=== PATIENT | male | born 1965 | race Caucasian/White ===

== ENCOUNTER → 2024-10-24 | Outpatient (CLI) | payer OTHER, SELFPAY ==
--- NOTE | 2024-10-24 12:20 | RAD_ITS ---
PROCEDURE: ORBITS FOR FOREIGN BODY 10/24/2024 REASON FOR EXAM: HISTORY OF METAL TO EYES TECHNIQUE: Procedure Code: [id number]. Modality: DX Procedure: ORBITS FOR FOREIGN BODY COMPARISON: None. FINDINGS: BONES: No acute osseous abnormality. SINUSES: No air-fluid level. SOFT TISSUES: No radiodense foreign bodies in the region of the orbits. No orbital emphysema. RAD/Orbits for Foreign Body IMPRESSION: No contraindication to MRI based on imaging related to this orbital exam. Reading Location: [id number]
--- OUTSIDE RECORDS SUMMARY | 2024-10-24 12:30 | XMS RPT_ITS | CCD ---
Author Organization [facility] ion [facility] Care Team Providers Care [place] Assembler Supervisor Name Role Phone JEMAL MULTANI Attending Unavailable [facility] Referring Unavailable SUHAIL NIX Primary Care Unavailable JEMAL MULTANI Attending Unavailable [facility] Referring Unavailable SUHAIL NIX Primary Care Unavailable Sanjiv SALAD COUNTER ATTENDANT-Devorah DENIS Unavailable [phone] Boyd SALAD COUNTER ATTENDANT.Suhail DENIS Primary Care Provider Suhail Nix Unavailable Jovan Jacobson Unavailable Unavailable Anabella Diop Unavailable Boyd, Ms. Coradoe Renita Primary Care Tod Diop, Ms. Anabella Mederos Attending Niruva marcos Nix, Ms. Suhailflakito Maravilla Primary Care Tod Jacobson, Ms. Jovan Hoffmann Attending Tod Nix SALAD COUNTER ATTENDANT-Suhail DENIS Primary Care Prov ider SUHAIL NIX Primary Care UnavailJOVAN Berry Attending Unavailable SUHAIL NIX Primary Care UnavailJOVAN Berry Attending Unavailable SUHAIL NIX Primary Care Unavailabl rosmery Nix SALAD COUNTER ATTENDANT.Suhail DENIS Primary Care Provider SUHAIL NIX Primary Care Unavailable LATRELL SMILEY Attending Unava ilJEWELL Mcgregor Attending Unavailable SUHAIL NIX Primary Care Unavailable SUHAIL NIX Primary Care Unavailable MANDY YEBOAH Attending Unavaila ble SUHAIL NIX Primary Care Unavailable BHUPINDER CAVANAUGH Attending Unavailable SUHAIL NIX Primary Care Unavailable KIMBERLY PADILLA Attending Unavailable Suhail Nix NP Primary Care Unavailable Latrell Hahn Referring UnavailLatrell Alcocer Attending Unavailcharlene botello Medications Current Medications Medication Drug Class(es) Dates Sig (Normalized) Sig (Original) [id number] 200 actuat albuterol 0.09 mg/actuat metered dose inhaler (4 sources) beta2-Adrenergic Agonist Start: 05-21-2023 End: 05-20-2024 take 2 puff(s) by inhalation every six hours for wheezing albuterol 90 mcg/actuation inhaler Indications: Acute bronchitis, unspecified organism Inhale 2 puffs every 6 hours if needed for wheezing. 18 g 05/21/2023 05/20/2024 Active Start: 05-09-2022 take 2 puff(s) by in halation twice daily as needed for cough albuterol 90 mcg/inh inhalation aerosol ; 2 puff(s) inhaled 2 times a day as needed for cough Quantity: 8.5 Refills: 0 Ordered: 09-May-2022 Jovan Jacobson Start: 09-May-2022 Generic Substitution Allowed Comments: For inhalation only.It is very important that you take or use this exactly as directed. Do not skip doses or discontinue unless directed by your doctor.Obtain medical advice before taking any non-prescription drugs as some may affect the action of this medication.Shake well before use. Comment on above: For inhalation only. It is very important that you take or use this exactly as directed. Do not skip doses or discontinue unless directed by your doctor.Obtain medical advice before taking any non-prescription drugs as some may affect the action of this medication.Shake well before use. amoxicillin 875 mg / clavulanate 125 mg oral tablet (2 sources) Penicillin-class Antibacterial Start: 05-21-19 End: 05-28-19 take 1 tablet by mouth twice daily amoxicillin-pot clavulanate (Augmentin) 875-125 mg tablet Indications: Acute bronchitis, unspecified organism Take 1 tablet by mouth 2 times a day for 7 days. 14 tablet 05/21/2023 05/28/2023 Active Start: 03-27-2023 End: 04-03-2023 take 1 tablet by mouth twice daily amoxicillin-pot clavulanate (Augmentin) 875-125 mg tablet Indications: Acute non-recurrent maxillary sinusitis Take 1 tablet by mouth 2 times a day for 7 days. 14 tablet 0 03/27/2023 04/03/2023 Active azithromycin 250 mg oral tablet (1 source) Macrolide Antimicrobial Start: 05-09-2022 take 2 tablets by mouth once, then take 1 tablet by mouth once daily azithromycin 250 mg oral tablet ; Take 2 tabs (500mg) x 1 days, then 1 tab (250mg) once daily x 4 days Quantity: 6 Refills: 0 Ordered: 09-May-2022 Jovan Jacobson Start: 09-May-2022 Generic Substitution Allowed Comments: Do not take dairy products, antacids, or iron preparations within one hour of this medication.Finish all this medication unless otherwise directed by prescriber. Comment on above: Do not take dairy pr oducts, antacids, or iron preparations within one hour of this medication.Finish all this medication unless otherwise directed by prescriber. benzonatate 200 mg oral capsule (1 source) Non-narcotic Antitussive Start: 05-18-2022 End: 05-22-2022 take 1 capsule by mouth three times daily for cough benzonatate 200 mg oral capsule ; 1 cap(s) orally 3 times a day x 5 days, As Needed cough Quantity: 15 Refills: 0 Ordered: 18-May-2022 Anabella Diop Start: 18-May-2022 End: 22-May-2022 Generic Substitution Allowed Comments: May cause drowsiness. Alcohol may intensify this effect. Use care when operating dangerous machinery.Swallow whole. Do not crush. Comment on above: May cause drowsiness . Alcohol may intensify this effect. Use care when operating dangerous machinery.Swallow whole. Do not crush. brompheniramine maleate 0.4 mg/ml / dextromethorphan hydrobromide 2 mg/ml / pseudoephedrine hydrochloride 6 mg/ml oral solution (1 source) alpha-Adrenergic Agonist, Uncompetitive G-qzazcz-U-asparta te Receptor Antagonist, Sigma-1 Agonist Start: 01-24-2024 End: 02-03-2024 take 5 mL by mouth four times daily as needed for cough brompheniramine-pseud oeph-DM 2-30-10 mg/5 mL syrup Indications: Viral URI with cough Take 5 mL by mouth 4 times a day as needed for congestion or cough for up to 10 days. 120 mL 01/24/2024 02/03/2024 Active cetirizine hydrochloride 10 mg oral tablet (3 sources) Histamine-1 Receptor Antagonist Start: 11-20-2022 End: 11-20-2023 take 1 tablet by mouth once daily cetirizine (ZyrTEC) 10 mg tablet Indications: Ear pressure, right Take 1 tablet (10 mg) by mouth once daily. 30 tablet 11/20/2022 Active dextromethorphan hydrobromide 15 mg / guaiFENesin 400 mg / pseudoephedrine hydrochloride 60 mg oral tablet (1 source) alpha-Adrenergic Agonist, Uncompetitive R-gzvwgq-V-asparta te Receptor Antagonist, Sigma-1 Agonist Start: 01-24-2024 End: 02-07-2024 take 1 tablet by mouth every six hours ghykllkrevpqvnz-EQ-op aifenesin (Capmist DM) 60-15-400 mg tablet Indications: Viral URI with cough Take 1 tablet by mouth every 6 hours if needed (sinus congestion) for up to 14 days. 84 tablet 01/24/2024 02/07/2024 Active doxycycline hyclate 100 mg oral capsule (1 source) Tetracycline-class Drug Start: 05-18-2022 End: 05-24-2022 take 1 capsule by mouth twice daily doxycycline hyclate 100 mg oral capsule ; 1 cap(s) orally 2 times a day x 7 days Quantity: 14 Refills: 0 Ordered: 18-May-2022 Anabella Diop Start: 18-May-2022 End: 24-May-2022 Generic Substitution Allowed Comments: Avoid prolonged or excessive exposure to direct and/or artificial sunlight while taking this medication.Do not take this drug if you are .Finish all this medication unless otherwise directed by prescriber.Medication should be taken with plenty of water. Comment on above: Avoid prolonged or e xcessive exposure to direct and/or artificial sunlight while taking this medication.Do not take this drug if you are .Finish all this medication unless otherwise directed by prescriber.Medication should be taken with plenty of water. fluticasone propionate 0.05 mg/actuat metered dose nasal spray (3 sources) Corticosteroid Start: 11-20-2022 End: 11-20-2023 take 1 spray(s) nasal route once daily fluticasone (Flonase) 50 mcg/actuation nasal spray Indications: Ear pressure, right Administer 1 spray into each nostril once daily. Shake gently. Before first use, prime pump. After use, clean tip and replace cap. 16 g 11/20/2022 Active omeprazole 20 mg delayed release oral capsule (3 sources) Proton Pump Inhibitor Start: 09-11-2022 take 1 capsule by mouth once daily omeprazole (PRILOSEC) 20 mg capsule Take 1 capsule by mouth once daily. 90 capsule 1 09/11/2022 Active Comment on above: Take 1 capsule by [facility] once daily. predniSONE 10 mg oral tablet (2 sources) Start: 03-27-2023 End: 04-01-2023 take 6 tablets by mouth once daily, then take 5 tablets by mouth once daily, then take 4 tablets by mouth once daily, then take 3 tablets by mouth once daily, then take 2 tablets by mouth once daily, then take 1 tablet by mouth once daily predniSONE (Deltasone) 10 mg tablet Indications: Acute bronchitis, unspecified organism Take 6 tablets (60 mg) by mouth once daily for 1 day, THEN 5 tablets (50 mg) once daily for 1 day, THEN 4 tablets (40 mg) once daily for 1 day, THEN 3 tablets (30 mg) once daily for 1 day, THEN 2 tablets (20 mg) once daily for 1 day, THEN 1 tablet (10 mg) once daily for 1 day. 21 tablet 0 03/27/2023 04/01/2023 Active Start: 05-09-2022 End: 05-13-2022 take 1 tablet by mouth once daily at mealtime predniSONE 20 mg oral tablet ; 1 tab(s) orally once a day Quantity: 5 Refills: 0 Ordered: 09-May-2022 Jovan Jacobson Start: 09-May-2022 End: 13-May-2022 Generic Substitution Allowed Comments: It is very important that you take or use this exactly as directed. Do not skip doses or discontinue unless directed by your doctor.Obtain medical advice before taking any non-prescription drugs as some may affect the action of this medication.Take with food or milk. Comment on above: It is very important that you take or use this exactly as directed. Do not skip doses or discontinue unless directed by your doctor.Obtain medical advice before taking any non-prescription drugs as some may affect the action of this medication.Take with food or milk. Completed/Discontinued Medications Medication Drug Class(es) Dates Sig (Normalized) Sig (Original) cyclobenzaprine hydrochloride 5 mg oral tablet (2 sources) Muscle Relaxant Start: 09-30-2018 End: 03-01-2022 take 1 tablet by mouth three times daily as needed cyclobenzaprine (FLEXERIL) 5 mg tablet Indications: Acute right-sided low back pain without sciatica Take 1 tablet by mouth three times daily as needed. 15 tablet 0 09/30/2018 03/01/2022 Discontinued Start: 12-13-2016 CYCLOBENZAPRIN E HCL 10 MG TABS takes 1 tablet daily as needed CYCLOBENZAPRINE HCL [id number] Mariela Pickering LPN Comment on above: Take 1 tablet by dajuan th three times daily as needed. meclizine hydrochloride 12.5 mg oral tablet (2 sources) Antiemetic Start: 09-13-19 End: 10-04-19 take 1 tablet by mouth every six hours as needed for dizziness meclizine (ANTIVERT) 12.5 mg tab Indications: Vertigo Take 1 tablet by mouth every 6 hours as needed (for dizziness). 30 tablet 09/12/2024 10/03/2024 Discontinued (Side Effects) naproxen 500 mg oral tablet (2 sources) Nonsteroidal Anti-inflammatory Drug Start: 02-06-19 End: 03-01-19 23 take 1 tablet by mouth twice daily at mealtime naproxen (NAPROSYN) 500 mg tablet Indications: Pain in right elbow Take 1 tablet by mouth twice daily with meals. 60 tablet 1 02/06/2018 03/01/2022 Discontinued Start: 12-13-2016 NAPROXEN 500 M G TABS takes 1 tablet daily as needed NAPROXEN [id number] Mariela Pickering LPN Comment on above: Take 1 tablet by dajuan th twice daily with meals. sildenafil 100 mg oral tablet (5 sources) Phosphodiesterase 5 Inhibitor Start: 10-24-2016 End: 10-03-2024 sildenafil (VIAGRA) 100 mg tablet Indications: Erectile dysfunction, unspecified erectile dysfunction type Take 1 tablet by mouth as needed. 8 tablet 2 10/24/2016 10/03/2024 Discontinued (Other) Comment on above: Take 1 tablet by dajuan th as needed. Problems Active Problems Problem Classification Problem Date Documented Da te Episodic/Chronic Abdominal pain (2 sources) Unspecified abdominal pain; Translations: [Flank pain] Onset: 5 Episodic Acute bronchitis (1 source) Acute bronchitis 05-18-2022 Administrative/social admission (1 source) Occupational exposure to noise; Translations: [Other effects of external causes] 09-14-2024 Episodic Calculus of urinary tract (3 sources) Kidney stone; Translations: [Calculus of kidney] Onset: 5 10-03-2024 Episodic Conditions associated with dizziness or vertigo (5 sources) Vertigo; Translations: [Dizziness and giddiness] Onset: 5 09-14-2024 Episodic Esophageal disorders (2 sources) Gastroesophageal reflux disease without esophagitis; Translations: [Gastro-esophageal reflux disease without esophagitis] Onset: 5 09-11-2022 Chronic Headache; including migraine (1 source) Headache; including migraine; Translations: [Headache, unspecified] Onset: 3 Immunizations and screening for infectious disease (8 sources) Patient encounter status; Translations: [Encounter for screening for human immunodeficiency virus [HIV]] 09-11-2022 Episodic Malaise and fatigue (1 source) Other malaise; Translations: [Other malaise] Onset: 3 Episodic Other disorders of stomach and duodenum (1 source) Indigestion; Translations: [Functional dyspepsia] Episodic Other ear and sense organ disorders (2 sources) Tinnitus of right ear; Translations: [Tinnitus, right ear] 09-14-2024 Episodic Other ear and sense organ disorders (1 source) Tinnitus, right ear; Translations: [Tinnitus of right ear] Onset: 5 Episodic Other gastrointestinal disorders (1 source) Heartburn; Translations: [Heartburn] Episodic Other gastrointestinal disorders (1 source) Loose stool; Translations: [Other fecal abnormalities] Episodic Other lower respiratory disease (2 sources) Pleurodynia Onset: 9 Episodic Other lower respiratory disease (4 sources) Cough 05-09-2022 Episodic Comment on above: COUGH Other upper respiratory disease (1 source) Other specified disorders of nose and nasal sinuses; Translations: [Other specified disorders of nose and nasal sinuses] Onset: 3 Episodic Other upper respiratory infections (6 sources) Acute maxillary sinusitis; Translations: [Acute maxillary sinusitis, unspecified] Onset: 4 03-27-2023 Episodic Residual codes; unclassified (1 source) Tobacco user; Translations: [Tobacco use] Episodic Substance-related disorders (1 source) Nicotine dependence, unspecified, uncomplicated; Translations: [Nicotine dependence, unspecified, uncomplicated] Onset: 3 Chronic Unclassified (1 source) Cough, unspecified; Translations: [Cough, unspecified] Onset: 3 Unclassified (1 source) Acute right-sided low back pain without sciatica; Translations: [Acute right-sided low back pain without sciatica] Onset: 5 Past or Other Problems Problem Classification Problem Date Documented Date Episodic/Chronic Acute bronchitis (8 sources) Acute bronchitis; Translations: [Acute bronchitis] Onset: 05-18-2022 05-09-2022 Episodic Blindness and vision defects (5 sources) Hypermetropia; Translations: [Hypermetropia, unspecified eye] Onset: 07-18-2016 07-18-2016 Episodic Other connective tissue disease (6 sources) Lateral epicondylitis; Translations: [Lateral epicondylitis, unspecified elbow] Onset: 02-17-2016 02-17-2016 Episodic Other connective tissue disease (5 sources) Medial epicondylitis; Translations: [Medial epicondylitis, unspecified elbow] Onset: 08-19-2012 08-19-2012 Episodic Other connective tissue disease (5 sources) Other symptoms and signs involving the musculoskeletal system; Translations: [Other musculoskeletal symptoms referable to limbs] Onset: 01-19-2017 01-19-2017 Episodic Other non-traumatic joint disorders (5 sources) Pain in elbow; Translations: [Pain in right elbow] Onset: 01-19-2017 01-19-2017 Episodic Unclassified (1 source) Problem Results Test Name Value Interpretation Reference Range Facility B. burgdorferi IgG and IgM p igor (S)on 10-14-2024 B. burgdorferi IgG+IgM Qn (S) Negative Normal Negative [facility] Comment on above: Order Comment: Leonor delgado Type: BLOOD SPECIMENOrdering Facility: [facility] Address: [address] [place] [address] Result Comment: Rece nt infection with B. burgdorferi sensu lato cannot be excluded if the specimen collected within four weeks after the onset of signs and symptoms or within six weeks after a known tick exposure. Clinical and epidemiological correlation is required. Performed By: #### 3 4942-3 ####[facility] LABCLIA [id number] [address] [place] CBC panel Auto (Bld)on 10-14 Erythrocyte distribution width (RBC) [Ratio] 13.0 % Normal 11.5-15.0 [facility] Comment on above: Order Comment: Leonor delgado Type: BLOOD SPECIMENOrdering Facility: [facility] Address: [address] [place] [address] Performed By: #### 5 8410-2 ####[facility] LABCLIA [id number] [place] [address] [place] Hematocrit (Bld) [Volume fraction] 48.9 % Normal 39.0-51.0 [facility] Comment on above: Order Comment: Leonor delgado Type: BLOOD SPECIMENOrdering Facility: [facility] Address: [address] [place] [address] Performed By: #### 5 8410-2 ####[facility] LABCLIA [id number] [place] [address] [place] Hemoglobin (Bld) [Mass/Vol] 15.9 g/dL Normal 13.0-17.0 [facility] Comment on above: Order Comment: Leonor delgado Type: BLOOD SPECIMENOrdering Facility: [facility] Address: [address] [place] [address] Performed By: #### 5 8410-2 ####[facility] LABCLIA [id number] [place] [address] [place] MCH (RBC) [Entitic mass] 31.6 pg Normal 26.0-34.0 [facility] Comment on above: Order Comment: Speci men Type: BLOOD SPECIMENOrdering Facility: [facility] Address: [address] [place] [address] Performed By: #### 5 8410-2 ####[facility] [place] LABCLIA [id number] [place] [address] [place] MCHC (RBC) [Mass/Vol] 32.5 g/dL Normal 30.5-36.0 [facility] Comment on above: Order Comment: Speci men Type: BLOOD SPECIMENOrdering Facility: [facility] Address: [address] [place] [address] Performed By: #### 5 8410-2 ####[facility] LABCLIA [id number] [facility] [place] [address] [place] MCV (RBC) [Entitic vol] 97.2 fL Normal 80.0-100.0 [facility] Comment on above: Order Comment: Speci men Type: BLOOD SPECIMENOrdering Facility: [facility] Address: [address] [place] [address] Performed By: #### 5 8410-2 ####[facility] [employer] LABCLIA [id number] [place] [address] [place] Platelet mean volume (Bld) [Entitic vol] 9.3 fL Normal 9.0-12.7 [facility] Comment on above: Order Comment: Speci men Type: BLOOD SPECIMENOrdering Facility: [facility] Address: [address] [place] [address] Performed By: #### 5 8410-2 ####[facility] [place] LABCLIA [id number] [facility] [place] [address] [place] Platelets (Bld) [#/Vol] 258 10*3/uL Normal 150-400 [facility] Comment on above: Order Comment: Speci men Type: BLOOD SPECIMENOrdering Facility: [facility] Address: [address] [place] [address] Performed By: #### 5 8410-2 ####[facility] [place] LABCLIA [id number] [place] [address] [facility] RBC (Bld) [#/Vol] 5.03 10*6/uL Normal 4.20-6.00 [facility] Comment on above: Order Comment: Speci men Type: BLOOD SPECIMENOrdering Facility: [facility] Address: [address] [place], [place] [address] Performed By: #### 5 8410-2 ####[facility] [place] LABCLIA [id number] [place] [address] [facility] WBC (Bld) [#/Vol] 6.40 10*3/uL Normal 3.70-11.00 [facility] Comment on above: Order Comment: Speci men Type: BLOOD SPECIMENOrdering Facility: [facility] Address: [address] [place], [place] [address] Performed By: #### 5 8410-2 ####[facility] [place] LABCLIA [id number] [facility] [place] [address] [facility] [place] Comprehensive metabolic 2000 panelon 10-14-2024 Albumin [Mass/Vol] 4.3 g/dL Normal 3.9-4.9 [facility] Comment on above: Order Comment: Speci men Type: BLOOD SPECIMENOrdering Facility: [facility] Address: [address] [place] [address] Performed By: #### 2 4323-8, 3040-3 ####[facility] [place] LABCLIA [id number] [place] [address] [facility] ALP [Catalytic activity/Vol] 91 U/L Normal 38-113 [facility] Comment on above: Order Comment: Speci men Type: BLOOD SPECIMENOrdering Facility: [facility] Address: [address] [place], [place] [address] Performed By: #### 2 4323-8, 3040-3 ####[facility] [place] LABCLIA [id number] [place] [address] [place] ALT With P-5'-P [Catalytic activity/Vol] 54 U/L Normal 10-54 [facility] Comment on above: Order Comment: Speci men Type: BLOOD SPECIMENOrdering Facility: [facility] Address: [address] [place] [address] Performed By: #### 2 4323-8, 3040-3 ####[facility] [place] LABCLIA [id number] [place] [address] [place] Anion gap [Moles/Vol] 13 mmol/L Normal 8-15 [facility] Comment on above: Order Comment: Speci men Type: BLOOD SPECIMENOrdering Facility: [facility] Address: [address] [place] [address] Performed By: #### 2 4323-8, 3040-3 ####[facility] [place] LABCLIA [id number] [place] [address] [place] AST With P-5'-P [Catalytic activity/Vol] 35 U/L Normal 14-40 [facility] Comment on above: Order Comment: Speci men Type: BLOOD SPECIMENOrdering Facility: [facility] Address: [address] [place] [address] Performed By: #### 2 4323-8, 3040-3 ####[facility] [place] LABCLIA [id number] [place] [address] [place] Bilirubin [Mass/Vol] 0.7 mg/dL Normal 0.2-1.3 [facility] Comment on above: Order Comment: Speci men Type: BLOOD SPECIMENOrdering Facility: [facility] Address: [address] [place] [address] Performed By: #### 2 4323-8, 3040-3 ####[facility] [place] LABCLIA [id number] [place] [address] [place] Calcium [Mass/Vol] 9.1 mg/dL Normal 8.5-10.2 [facility] Comment on above: Order Comment: Speci men Type: BLOOD SPECIMENOrdering Facility: [facility] Address: [address] [place] [address] Performed By: #### 2 4323-8, 3040-3 ####[facility] [place] LABCLIA [id number] [place] [address] [place] Chloride [Moles/Vol] 103 mmol/L Normal 98-107 [facility] Comment on above: Order Comment: Speci men Type: BLOOD SPECIMENOrdering Facility: [facility] Address: [address] [place] [address] Performed By: #### 2 4323-8, 3040-3 ####[facility] LABCLIA [id number] [place] [address] [place] CO2 [Moles/Vol] 24 mmol/L Normal 22-30 [facility] Comment on above: Order Comment: Speci men Type: BLOOD SPECIMENOrdering Facility: [facility] Address: [address] [place] [address] Performed By: #### 2 4323-8, 3040-3 ####[facility] LABCLIA [id number] [place] [address] [place] Creatinine [Mass/Vol] 1.01 mg/dL Normal 0.73-1.22 [facility] Comment on above: Order Comment: Speci men Type: BLOOD SPECIMENOrdering Facility: [facility] Address: [address] [place] [address] Performed By: #### 2 4323-8, 3040-3 ####[facility] [place] LABCLIA [id number] [place] [address] [place] eGFRcr SerPlBld CKD-EPI 2020 86 mL/min/1.73m??? Normal >=60 [facility] Comment on above: Order Comment: Speci men Type: BLOOD SPECIMENOrdering Facility: [facility] [facility] Address: [address] [place] [address] Result Comment: Malena mated Glomerular Filtration Rate (eGFR) is calculated using the 2020 CKD-EPI creatinine equation. This equation utilizes serum creatinine, sex, and age as parameters. The creatinine assay has traceable calibration to isotope dilution-mass spectrometry. Refer to KDIGO guidelines for clinical interpretation. In patients with unstable renal function, e.g. those with acute kidney injury, the eGFR may not accurately reflect actual GFR. Performed By: #### 2 4323-8, 0-3 ####[facility] [employer] LABCLIA [id number] [facility] [place] [address] [place] Glucose [Mass/Vol] 104 mg/dL High 74-99 [facility] Comment on above: Order Comment: Leonor delgado Type: BLOOD SPECIMENOrdering Facility: [facility] Address: [address] [place] [address] Result Comment: The [place] Diabetes Association (ADA) provides guidance for cutoff values for fasting glucose and random glucose. The ADA defines fasting as no caloric intake for at least 8 hours. Fasting plasma glucose results between 100 to 125 mg/dL indicate increased risk for diabetes (prediabetes). Fasting plasma glucose results greater than or equal to 126 mg/dL meet the criteria for diagnosis of diabetes. In the absence of unequivocal hyperglycemia, results should be confirmed by repeat testing. In a patient with classic symptoms of hyperglycemia or hyperglycemic crisis, random plasma glucose results greater than or equal to 200 mg/dL meet the criteria for diagnosis of diabetes. Reference: Standards of Medical Care in Diabetes 2016, [place] [employer] Association. Diabetes Care. 2016.39(Suppl 1). Performed By: #### 2 4323-8, 3039-3 ####[facility] [employer] LABCLIA [id number] [facility] [place] [address] [place] Potassium [Moles/Vol] 4.5 mmol/L Normal 3.7-5.1 [facility] Comment on above: Order Comment: Leonor delgado Type: BLOOD SPECIMENOrdering Facility: [facility] Address: [address] [place] [address] Performed By: #### 2 4323-8, 3039-3 ####[facility] [employer] LABCLIA [id number] [facility] [place] [address] [place] Protein [Mass/Vol] 7.0 g/dL Normal 6.3-8.0 [facility] Comment on above: Order Comment: Speci men Type: BLOOD SPECIMENOrdering Facility: [facility] Address: [address] [place] [address] Performed By: #### 2 4323-8, 3040-3 ####[facility] LABCLIA [id number] [facility] [place] [address] [place] [facility] Sodium [Moles/Vol] 140 mmol/L Normal 136-144 [facility] Comment on above: Order Comment: Speci men Type: BLOOD SPECIMENOrdering Facility: [facility] Address: [address] [place], [place] [address] Performed By: #### 2 4323-8, 3040-3 ####[facility] LABCLIA [id number] [facility] [place] [address] [facility] Urea nitrogen [Mass/Vol] 23 mg/dL Normal 9-24 [facility] Comment on above: Order Comment: Speci men Type: BLOOD SPECIMENOrdering Facility: [facility] Address: [address] [place], [place] [address] Performed By: #### 2 4323-8, 3040-3 ####[facility] LABCLIA [id number] [facility] [place] [address] [facility] ED NOTEon 10-14-2024 ED NOTE HNO ID: [id number] Author: CHRISTOPHER SARAH RN Service: Nursing Author Type: Registered Nurse Type: ED Notes Filed: 10/15/2024 18:03 Note Text: Emergency Services: ED Call Back Questionnaire SERVICE DATE: 10/14/2024 Are you feeling better? Yes Any questions about discharge instructions and follow-up care? No Were you able to make a follow up appointment? Will if needed Do you have any further questions? No Is there anything that we could have done differently to improve your ED visit? No SIGNATURE: Christopher Sarah RN PATIENT NAME: Elpidio Cornelius DATE: October 15, 2024 TIME: 6:02 PM Normal [facility] ED NOTE HNO ID: [id number] Author: MAUREEN DRISCOLL RN Service: ? Author Type: Registered Nurse Type: ED Notes Filed: 10/14/2024 13:54 Note Text: Dr Smiley notified that the patient had asked CARROLL Granados about drawing another vial of blood because he had recently found three ticks on his body. Normal [facility] ED NOTE HNO ID: [id number] Author: BHUPINDER ROSALES RN Service: ? Author Type: Registered Nurse Type: ED Notes Filed: 10/14/2024 12:10 Note Text: Ultrasound at bedside for exam Normal [facility] ED NOTE HNO ID: [id number] Author: BHUPINDER ROSALES RN Service: ? Author Type: Registered Nurse Type: ED Notes Filed: 10/14/2024 11:41 Note Text: Dr smiley at bedside for exam Normal [facility] ED NOTE HNO ID: [id number] Author: BHUPINDER ROSALES RN Service: ? Author Type: Registered Nurse Type: ED Notes Filed: 10/14/2024 11:03 Note Text: Pt reports r flank pain and dysuria since this am. Pt does have a known kidney stone. Pt does have nausea but no vomiting and had some diarrhea this am. Normal [facility] ED PROV NOTEon 10-14-2024 ED PROV NOTE HNO ID: [id number] Author: LATRELL SMILEY MD Service: Emergency Medicine Author Type: Physician Type: ED Provider Notes Filed: 10/14/2024 18:46 Note Text: ED Provider Note Patient Name: Elpidio Cornelius : 1965 SERVICE DATE: 10/14/24 History Patient presents with: Flank Pain Dysuria Patient with past history of kidney stones, seen in September for a 3 mm right-sided ureteral stone, presents the emergency room with concerns of the stone is moving. For the past day or so, patient had right flank pain which appears to be worsening and moving. He is also noted some discoloration in his urine. Mild nausea noted without emesis. No fevers, no diarrhea patient took nothing for the pain prior to coming to the ER Abdominal Pain Pain location: R flank Pain quality: pressure and throbbing Pain radiates to: Does not radiate Pain severity: Mild Onset quality: Gradual Timing: Intermittent Chronicity: Recurrent Relieved by: Nothing Worsened by: Nothing Ineffective treatments: None tried Associated symptoms: hematuria and nausea Associated symptoms: no vomiting PAST MEDICAL HISTORY Diagnosis Date GERD (gastroesophageal reflux disease) NEGATIVE MEDICAL HISTORY PAST SURGICAL HISTORY Procedure Laterality Date COLONOSCOPY FLX DX W/COLLJ SPEC WHEN PFRMD 12/24/2018 Colonoscopy ELBOW RIGHT Right has had ozone injections on right elbow 10/22/16 and 10/08/16 TONSILLECTOMY HX FAMILY HISTORY Adopted: Yes Problem Relation Age of Onset No Known Problems Mother No Known Problems Father No Known Problems Sister No Known Problems Brother No Known Problems Maternal Grandmother No Known Problems Maternal Grandfather No Known Problems Paternal Grandmother No Known Problems Paternal Grandfather other (unknown) Other pt adopted other (ms) Daughter 32 Drug abuse Daughter Social History[1] ALLERGIES No Known Allergies Review of Systems Gastrointestinal: Positive for abdominal pain and nausea. Negative for vomiting. Genitourinary: Positive for hematuria. All other systems reviewed and are negative. Physical Exam Vitals [10/14/24 1101] BP Pulse Temp Temp src Resp SpO2 Weight Height 110/77 80 36.1 ?C (96.9 ?F) LT Tympanic 18 97 % 61.7 kg (136 lb) -- Physical Exam Vitals and nursing note reviewed. Constitutional: General: He is not in acute distress. Appearance: Normal appearance. He is not ill-appearing or toxic-appearing. HENT: Head: Normocephalic and atraumatic. Eyes: General: Right eye: No discharge. Left eye: No discharge. Cardiovascular: Rate and Rhythm: Normal rate and regular rhythm. Pulmonary: Effort: No respiratory distress. Abdominal: General: Abdomen is flat. Bowel sounds are normal. Palpations: Abdomen is soft. Tenderness: There is no abdominal tenderness. There is right CVA tenderness. There is no left CVA tenderness or guarding. Skin: General: Skin is warm and dry. Neurological: General: No focal deficit present. Mental Status: He is alert and oriented to person, place, and time. Mental status is at baseline. Psychiatric: Mood and Affect: Mood normal. Behavior: Behavior normal. Diagnostic Testing ED Labs Ordered and Reviewed COMPREHENSIVE METABOLIC PANEL - Abnormal; Notable for the following components: Result Value Ref Range Glucose 104 (*) 74 - 99 mg/dL All other components within normal limits URINALYSIS (WITH MICROSCOPIC) WITH CULTURE IF INDICATED - Abnormal; Notable for the following components: Hemoglobin/Blood,Ur Trace (*) Negative RBC, Urine 3-5 /HPF (*) 0-3 /HPF Bacteria Rare (*) None Seen /HPF All other components within normal limits LIPASE - Normal COMPLETE BLOOD COUNT - Normal LYME AB LATE >30 DAYS SYMPTOMS Procedures ED Course / Clinical Impression Clinical Impressions as of 10/14/24 1842 Flank pain History of kidney stones MDM / Disposition / Plan This is a 59-year-old male patient, past history of kidney stones, seen in our emergency department, middle of September presents emerged from concerns over the same. At that time patient had 3 mm stone, without any complications. At home patient tried nothing for his symptoms and came to the ER for reevaluation. Workup today ultrasound of his kidney demonstrates no hydronephrosis, BUN/creatinine, and urinalysis demonstrate no evidence of urinary tract infection, with normal kidney function. Patient improved with Toradol in the emergency department. Discussed with patient likely his stone is moving, given a prescription of Toradol, Zofran, and Flomax, and follow-up with urology. Patient does not warrant repeat CT imaging as he just had this done last 1 month ago and there is no acute complications related to the above. Increase to increase his fluid intake. Please note this report has been produced using speech recognition software and may contain errors related to that system including error (more content not included)... Normal [facility] Lipase SerPl-cCncon 10-15-19 Lipase [Catalytic activity/Vol] 58 U/L Normal 16-61 [facility] Comment on above: Order Comment: Speci men Type: BLOOD SPECIMENOrdering Facility: [facility] Address: [address] [place] [address] Performed By: #### 2 4323-8, 3040-3 ####[facility] LABCLIA [id number] [place] [address] [place] US KIDNEY/BLADDERon 10-15-19 US KIDNEY/BLADDER * * *Final Report* * * DATE OF EXAM: Oct 14 2024 12:32PM LDU 1055 - US KIDNEY/BLADDER / PROCEDURE REASON: Flank pain, kidney stone suspected * * * * Physician Interpretation * * * * EXAMINATION: RENAL ULTRASOUND CLINICAL HISTORY: Right renal stone. Right flank pain TECHNIQUE: Sonography of the kidneys and urinary bladder was performed. Images were obtained and stored in a permanent archive. MQ: UR_1 COMPARISON: 09/18/2024 CT RESULT: Right Kidney: -Renal length: 11.1 cm -Parenchyma: Normal parenchymal echogenicity. Normal parenchymal thickness. -Collecting system: No hydronephrosis. -Calculus: No echogenic, shadowing calculus. -Lesion: None. Left Kidney: -Renal length: 11 cm -Parenchyma: Normal parenchymal echogenicity. Normal parenchymal thickness. -Collecting system: No hydronephrosis. -Calculus: No echogenic, shadowing calculus. -Lesion: None. Bladder: Normal sonographic appearance. Bladder volume is 48 cc. IMPRESSION: Unremarkable renal ultrasound. No evidence of hydronephrosis Media Relations Director: PEDRO Transcribe Date/Time: Oct 14 2024 12:54P Dictated by : ERA ORTEZ MD This examination was interpreted and the report reviewed and electronically signed by: ERA ORTEZ MD on Oct 14 2024 12:56PM EST [id number] Normal [facility] Urinalysis complete panel (U )on 10-14-2024 Bacteria LM.HPF (Urine sed) [#/Area] Rare Abnormal None Seen [facility] Comment on above: Order Comment: Speci men Type: URINE SPECIMENOrdering Facility: [facility] Address: [address] [place] [address] Performed By: #### 2 4356-8 ####[facility] LABCLIA [id number] [place] [address] [place] Bilirubin Ql (U) Negative Normal Negative [facility] Comment on above: Order Comment: Speci men Type: URINE SPECIMENOrdering Facility: [facility] Address: [address] [place] [address] Performed By: #### 2 4356-8 ####[facility] LABCLIA [id number] [place] [address] [place] Clarity (Unsp spec) Clear Normal Clear [facility] Comment on above: Order Comment: Speci men Type: URINE SPECIMENOrdering Facility: [facility] Address: [address] [place] [address] Performed By: #### 2 4356-8 ####[facility] LABCLIA [id number] [facility] [place] [address] [place] Color (U) Yellow Normal Yellow [facility] Comment on above: Order Comment: Speci men Type: URINE SPECIMENOrdering Facility: [facility] Address: [address] [place] [address] Performed By: #### 2 4356-8 ####[facility] LABCLIA [id number] [place] [address] [facility] Glucose Test strip (U) [Mass/Vol] Negative Normal Negative [facility] Comment on above: Order Comment: Speci men Type: URINE SPECIMENOrdering Facility: [facility] Address: [address] [place] [address] Performed By: #### 2 4356-8 ####[facility] LABCLIA [id number] [facility] [place] [address] [place] Hemoglobin Ql (U) Trace Abnormal Negative [facility] Comment on above: Order Comment: Speci men Type: URINE SPECIMENOrdering Facility: [facility] Address: [address] [place] [address] Performed By: #### 2 4356-8 ####[facility] LABCLIA [id number] [facility] [place] [address] [place] Ketones Ql (U) Negative Normal Negative [facility] Comment on above: Order Comment: Speci men Type: URINE SPECIMENOrdering Facility: [facility] Address: [address] [place] [address] Performed By: #### 2 4356-8 ####[facility] LABCLIA [id number] [facility] [place] [address] [place] Leukocyte esterase Test strip Ql (U) Negative Normal Negative [facility] Comment on above: Order Comment: Speci men Type: URINE SPECIMENOrdering Facility: [facility] Address: [address] [place] [address] Performed By: #### 2 4356-8 ####[facility] LABCLIA [id number] [place] [address] [place] [facility] Nitrite Ql (U) Negative Normal Negative [facility] Comment on above: Order Comment: Speci men Type: URINE SPECIMENOrdering Facility: [facility] Address: [address] [place] [address] Performed By: #### 2 4356-8 ####[facility] LABCLIA [id number] [place] [address] [facility] pH (U) 6.0 [pH] Normal 5.0-8.0 [facility] Comment on above: Order Comment: Speci men Type: URINE SPECIMENOrdering Facility: [facility] Address: [address] [place] [address] Performed By: #### 2 4356-8 ####[facility] LABCLIA [id number] [place] [address] [place] [facility] Protein (U) [Mass/Vol] Negative Normal Negative [facility] Comment on above: Order Comment: Speci men Type: URINE SPECIMENOrdering Facility: [facility] Address: [address] [place] [address] Performed By: #### 2 4356-8 ####[facility] LABCLIA [id number] [place] [address] [place] RBC LM.HPF (Urine sed) [#/Area] 3-5 /HPF Abnormal 0-3 /HPF [facility] Comment on above: Order Comment: Speci men Type: URINE SPECIMENOrdering Facility: [facility] Address: [address] [place] [address] Performed By: #### 2 4356-8 ####[facility] LABCLIA [id number] [place] [address] [facility] Specific gravity (U) [Rel density] 1.025 Normal 1.005-1.030 [facility] Comment on above: Order Comment: Speci men Type: URINE SPECIMENOrdering Facility: [facility] Address: [address] [place] [address] Performed By: #### 2 4356-8 ####[facility] LABCLIA [id number] [place] [address] [facility] Urobilinogen Ql (U) 0.2 EU/dL Normal 0.2-1.0 EU/dL [facility] Comment on above: Order Comment: Speci men Type: URINE SPECIMENOrdering Facility: [facility] Address: [address] [place] [address] Performed By: #### 2 4356-8 ####[facility] LABCLIA [id number] [place] [id number] [facility] OF [place] WBC LM.HPF (Urine sed) [#/Area] 0-5 /HPF Normal 0-5 /HPF [facility] Comment on above: Order Comment: Speci men Type: URINE SPECIMENOrdering Facility: [facility] Address: [address] [place] [address] Performed By: #### 2 4356-8 ####[facility] LABCLIA [id number] [place] [id number] [facility] CNOVon 10-03-2024 CNOV Office Visit (ALBERTO) ELPIDIO CORNELIUS ([id number]) 1965 M Date Time Provider Department 10/03/24 4:40 PM BHUPINDER CAVANAUGH During your visit today, we recorded the following information about you: Temperature Pulse Respiration Blood pressure 98.4 degrees 75/minute 16/minute 108/64 Weight Height 61.7 kg 1.702 m Bhupinder Cavanaugh APRN.ACADEMY EDUCATION DIRECTOR 10/03/2024 5:09 PM Signed Subjective The patient consented to the use of ambient LogicLoop software for draft documentation of the visit consistent with [place]?s Notice of Privacy Practices. HPI Elpidio Cornelius is a 59-year-old male presenting for follow-up after an ED visit for right flank pain. Elpidio was evaluated in the ED on 09/18 for right flank pain and nausea. A CT scan of the abdomen and pelvis revealed a 3 mm non-obstructing stone in the inferior pole of the right kidney, with no ureteral stones and a normal left kidney. Laboratory results showed a normal CBC, a BMP with mildly elevated glucose at 115 mg/dL, and a urinalysis with trace hematuria. He reports a history of a similar episode approximately 10 years ago and passed a kidney stone prior to the ED visit. No medications were prescribed, and he was advised to return if pain recurred. Currently, he reports significant improvement, with no pain, nausea, or abdominal discomfort, though he notes a gurgly sensation in his abdomen. He describes his overall health as good. He has a history of acid reflux, for which he occasionally takes omeprazole and uses vinegar to alleviate symptoms. He also reports ongoing vertigo, for which he was evaluated earlier this month and prescribed meclizine. However, he finds the medication causes excessive drowsiness and has discontinued its use. He is under the care of [facility], where his hearing was found to be normal, and an MRI of the brain has been ordered. Due to dizziness, he has been unable to drive. He has a history of using Viagra, but infrequently, due to side effects of nasal congestion. He reports high fluid intake, including water throughout the day and lemonade or orange juice with dinner, and consumes one cup of coffee in the morning. I reviewed past medical, surgical, social, and family histories today and updated chart. Allergies, chronic medications, and supplements were also reviewed. PAST MEDICAL HISTORY Diagnosis Date GERD (gastroesophageal reflux disease) NEGATIVE MEDICAL HISTORY PAST SURGICAL HISTORY Procedure Laterality Date COLONOSCOPY FLX DX W/COLLJ SPEC WHEN PFRMD 12/24/2018 Colonoscopy ELBOW RIGHT Right has had ozone injections on right elbow 10/22/16 and 10/08/16 TONSILLECTOMY HX ALLERGIES Patient has no known allergies. MEDICATIONS omeprazole (PRILOSEC) 20 mg capsule Take 1 capsule by mouth once daily. FAMILY HISTORY Adopted: Yes Problem Relation Age of Onset No Known Problems Mother No Known Problems Father No Known Problems Sister No Known Problems Brother No Known Problems Maternal Grandmother No Known Problems Maternal Grandfather No Known Problems Paternal Grandmother No Known Problems Paternal Grandfather other (unknown) Other pt adopted other (ms) Daughter 32 Drug abuse Daughter SOCIAL HISTORY[1] Review of Systems Gastrointestinal: (+) abdominal gurgling, (-) abdominal pain, (-) nausea Genitourinary: (-) right flank pain Neurological: (+) dizziness Objective BP 108/64 Pulse 75 Temp 98.4 Resp 16 Ht 5' 7 (1.70m) Wt 136 lb (61.7kg) SpO2 96% BMI 21.30 kg/(m2). Physical Exam Constitutional: General: He is not in acute distress. Appearance: Normal appearance. HENT: Head: Normocephalic and atraumatic. Mouth/Throat: Lips: [place]. Eyes: General: Lids are normal. Extraocular Movements: Extraocular movements intact. Conjunctiva/sclera: Conjunctivae normal. Pupils: Pupils are equal. Cardiovascular: Rate and Rhythm: Normal rate and regular rhythm. Heart sounds: Normal heart sounds. No murmur heard. Pulmonary: Effort: Pulmonary effort is normal. No respiratory distress. Breath sounds: Normal breath sounds. Abdominal: General: Abdomen is flat. Bowel sounds are normal. Palpations: Abdomen is soft. Tenderness: There is no abdominal tenderness. There is no right CVA tenderness. Musculoskeletal: Cervical back: Normal range of motion. Right lower leg: No edema. Left lower leg: No edema. Skin: General: Skin is warm and dry. Findings: No rash. Neurological: General: No focal deficit present. Mental Status: He is alert and oriented to person, place, and time. Cranial Nerves: No cranial nerve deficit. Motor: Motor function is intact. Coordination: Coordination normal. Gait: Gait is intact. Psychiatric: Attention and Perception: Attention and perception normal. Mood and Affect: Mood and affect normal. Beha (more content not included)... Normal [facility] ALLIED HEALTHon 09-18-2024 ALLIED HEALTH HNO ID: [id number] Author: NICOLE CADE RT(R) Service: Radiology Author Type: Technologist Type: Allied Health Filed: 09/18/2024 06:41 Note Text: Radiology Service Progress Note PATIENT NAME: Elpidio Cornelius DATE OF SERVICE: September 18, 2024 TIME: 6:40 AM PATIENT IDENTITY VERIFICATION COMPLETED USING TWO (2) IDENTIFIERS: Name and Date of confirmed by patient verbally. FALL SCREENING: Has the patient had 2 falls in the last year or 1 fall with injury or currently using an Ambulatory Assistive Device (Walker, Cane, Wheelchair, Crutches, etc.)? Emergency Room Patient: Screened in ED PATIENT GENDER DATA: Assigned male at PATIENT RELEVANT IMPLANT DATA REVIEWED: Not Applicable PATIENT PRESENTS WITH AN IMPLANTABLE OR ATTACHED HIGHWAY ADMINISTRATIVE ENGINEER: No RADIOLOGY DEPARTMENT: CT; Exam(s) Completed: Abdomen/Pelvis PERIPHERAL IV DATA: Not applicable SIGNED BY: RT Laurie(R) September 18, 2024 6:40 AM Normal [facility] Basic metabolic 2000 panelon 09-18-2024 Anion gap [Moles/Vol] 11 mmol/L Normal 8-15 [facility] Comment on above: Order Comment: Speci men Type: BLOOD SPECIMENOrdering Facility: [facility] Address: [address] [place] [address] Performed By: #### 2 4321-2 ####[facility] LABCLIA [id number] [place] [address] [place] Calcium [Mass/Vol] 9.0 mg/dL Normal 8.5-10.2 [facility] Comment on above: Order Comment: Speci men Type: BLOOD SPECIMENOrdering Facility: [facility] Address: [address] [place] [address] Performed By: #### 2 4321-2 ####[facility] LABCLIA [id number] [place] [address] [place] Chloride [Moles/Vol] 106 mmol/L Normal 98-107 [facility] Comment on above: Order Comment: Speci men Type: BLOOD SPECIMENOrdering Facility: [facility] Address: [address] [place] [address] Performed By: #### 2 4321-2 ####[facility] LABCLIA [id number] [place] [address] [place] CO2 [Moles/Vol] 24 mmol/L Normal 22-30 [facility] Comment on above: Order Comment: Speci men Type: BLOOD SPECIMENOrdering Facility: [facility] Address: [address] [place] [address] Performed By: #### 2 4321-2 ####[facility] LABCL[facility] [id number] [place] [address] [place] Creatinine [Mass/Vol] 0.85 mg/dL Normal 0.73-1.22 [facility] Comment on above: Order Comment: Michellei men Type: BLOOD SPECIMENOrdering Facility: [facility] Address: [address] [place] [address] Performed By: #### 2 4321-2 ####[facility] LABCLIA [id number] [place] [address] [facility] eGFRcr SerPlBld CKD-EPI 2020 101 mL/min/1.73m??? Normal >=60 [facility] Comment on above: Order Comment: Speci men Type: BLOOD SPECIMENOrdering Facility: [facility] Address: [address] [place] [address] Result Comment: Malena mated Glomerular Filtration Rate (eGFR) is calculated using the 2020 CKD-EPI creatinine equation. This equation utilizes serum creatinine, sex, and age as parameters. The creatinine assay has traceable calibration to isotope dilution-mass spectrometry. Refer to KDIGO guidelines for clinical interpretation. In patients with unstable renal function, e.g. those with acute kidney injury, the eGFR may not accurately reflect actual GFR. Performed By: #### 2 4321-2 ####[facility] LABCLIA [id number] [place] [address] [place] Glucose [Mass/Vol] 115 mg/dL High 74-99 [facility] Comment on above: Order Comment: Speci men Type: BLOOD SPECIMENOrdering Facility: [facility] Address: [address] [place] [address] Result Comment: The [place] Diabetes Association (ADA) provides guidance for cutoff values for fasting glucose and random glucose. The ADA defines fasting as no caloric intake for at least 8 hours. Fasting plasma glucose results between 100 to 125 mg/dL indicate increased risk for diabetes (prediabetes). Fasting plasma glucose results greater than or equal to 126 mg/dL meet the criteria for diagnosis of diabetes. In the absence of unequivocal hyperglycemia, results should be confirmed by repeat testing. In a patient with classic symptoms of hyperglycemia or hyperglycemic crisis, random plasma glucose results greater than or equal to 200 mg/dL meet the criteria for diagnosis of diabetes. Reference: Standards of Medical Care in Diabetes 2016, [place] [employer] Association. Diabetes Care. 2016.39(Suppl 1). Performed By: #### 2 4321-2 ####[facility] LABCLIA [id number] [place] [address] [place] Potassium [Moles/Vol] 4.1 mmol/L Normal 3.7-5.1 [facility] Comment on above: Order Comment: Speci men Type: BLOOD SPECIMENOrdering Facility: [facility] Address: [address] [place] [address] Performed By: #### 2 4321-2 ####[facility] LABCLIA [id number] [place] [address] [place] Sodium [Moles/Vol] 141 mmol/L Normal 136-144 [facility] Comment on above: Order Comment: Speci men Type: BLOOD SPECIMENOrdering Facility: [facility] Address: [address] [place] [address] Performed By: #### 2 4321-2 ####[facility] LABCLIA [id number] [place] [address] [place] Urea nitrogen [Mass/Vol] 20 mg/dL Normal 9-24 [facility] Comment on above: Order Comment: Speci men Type: BLOOD SPECIMENOrdering Facility: [facility] Address: [address] [place] [address] Performed By: #### 2 4321-2 ####[facility] LABCLIA [id number] [facility] [place] [address] [place] CBC W Auto Differential pane l (Bld)on 09-18-2024 Basophils (Bld) [#/Vol] 10*3/uL Normal <0.11 [facility] Comment on above: Order Comment: Speci men Type: BLOOD SPECIMENOrdering Facility: [facility] Address: [address] [place] [address] Performed By: #### 5 7021-8 ####[facility] LABCLIA [id number] [facility] [place] [address] [place] Basophils/100 WBC (Bld) 0.3 % Normal [facility] Comment on above: Order Comment: Speci men Type: BLOOD SPECIMENOrdering Facility: [facility] Address: [address] [place] [address] Performed By: #### 5 7021-8 ####[facility] LABCLIA [id number] [facility] [place] [address] [facility] Differential cell count method Nom (Bld) Auto Normal [facility] Comment on above: Order Comment: Speci men Type: BLOOD SPECIMENOrdering Facility: [facility] Address: [address] [place] [address] Performed By: #### 5 7021-8 ####[facility] LABCLIA [id number] [facility] [place] [address] [place] Eosinophils (Bld) [#/Vol] 0.15 10*3/uL Normal <0.46 [facility] Comment on above: Order Comment: Speci men Type: BLOOD SPECIMENOrdering Facility: [facility] Address: [address] [place] [address] Performed By: #### 5 7021-8 ####[facility] LABCLIA [id number] [place] [address] [facility] OF [facility] Eosinophils/100 WBC (Bld) 2.2 % Normal [facility] Comment on above: Order Comment: Speci men Type: BLOOD SPECIMENOrdering Facility: [facility] Address: [address] [place] [address] Performed By: #### 5 7021-8 ####[facility] LABCLIA [id number] [place] [address] [place] Erythrocyte distribution width (RBC) [Ratio] 12.8 % Normal 11.5-15.0 [facility] Comment on above: Order Comment: Speci men Type: BLOOD SPECIMENOrdering Facility: [facility] Address: [address] [place] [address] Performed By: #### 5 7021-8 ####[facility] LABCLIA [id number] [place] [address] [facility] Hematocrit (Bld) [Volume fraction] 46.0 % Normal 39.0-51.0 [facility] Comment on above: Order Comment: Speci men Type: BLOOD SPECIMENOrdering Facility: [facility] Address: [address] [place] [address] Performed By: #### 5 7021-8 ####[facility] LABCLIA [id number] [facility] [place] [address] [place] Hemoglobin (Bld) [Mass/Vol] 15.2 g/dL Normal 13.0-17.0 [facility] Comment on above: Order Comment: Speci men Type: BLOOD SPECIMENOrdering Facility: [facility] Address: [address] [place] [address] Performed By: #### 5 7021-8 ####[facility] LABCLIA [id number] [place] [address] [place] Immature granulocytes (Bld) [#/Vol] 10*3/uL Normal <0.10 [facility] Comment on above: Order Comment: Speci men Type: BLOOD SPECIMENOrdering Facility: [facility] Address: [address] [place] [address] Performed By: #### 5 7021-8 ####[facility] LABCLIA [id number] [place] [address] [place] Immature granulocytes/100 WBC (Bld) 0.1 % Normal [facility] Comment on above: Order Comment: Speci men Type: BLOOD SPECIMENOrdering Facility: [facility] Address: [address] [place] [address] Performed By: #### 5 7021-8 ####[facility] LABCLIA [id number] [place] [address] [place] Lymphocytes (Bld) [#/Vol] 1.85 10*3/uL Normal 1.00-4.00 [facility] Comment on above: Order Comment: Speci men Type: BLOOD SPECIMENOrdering Facility: [facility] Address: [address] [place] [address] Performed By: #### 5 7021-8 ####[facility] LABCLIA [id number] [place] [address] [place] Lymphocytes/100 WBC (Bld) 27.4 % Normal [facility] Comment on above: Order Comment: Speci men Type: BLOOD SPECIMENOrdering Facility: [facility] Address: [address] [place] [address] Performed By: #### 5 7021-8 ####[facility] LABCLIA [id number] [place] [address] [place] MCH (RBC) [Entitic mass] 31.9 pg Normal 26.0-34.0 [facility] Comment on above: Order Comment: Speci men Type: BLOOD SPECIMENOrdering Facility: [facility] Address: [address] [place] [address] Performed By: #### 5 7021-8 ####[facility] LABCLIA [id number] [place] [address] [place] MCHC (RBC) [Mass/Vol] 33.0 g/dL Normal 30.5-36.0 [facility] Comment on above: Order Comment: Speci men Type: BLOOD SPECIMENOrdering Facility: [facility] Address: [address] [place] [address] Performed By: #### 5 7021-8 ####[facility] LABCLIA [id number] [facility] [place] [address] [place] MCV (RBC) [Entitic vol] 96.6 fL Normal 80.0-100.0 [facility] Comment on above: Order Comment: Speci men Type: BLOOD SPECIMENOrdering Facility: [facility] Address: [address] [place] [address] Performed By: #### 5 7021-8 ####[facility] LABCLIA [id number] [facility] [place] [address] [place] Monocytes (Bld) [#/Vol] 0.67 10*3/uL Normal <0.87 [facility] Comment on above: Order Comment: Speci men Type: BLOOD SPECIMENOrdering Facility: [facility] Address: [address] [place] [address] Performed By: #### 5 7021-8 ####[facility] LABCLIA [id number] [facility] [place] [address] [place] [facility] Monocytes/100 WBC (Bld) 9.9 % Normal [facility] Comment on above: Order Comment: Speci men Type: BLOOD SPECIMENOrdering Facility: [facility] Address: [address] [place] [address] Performed By: #### 5 7021-8 ####[facility] LABCLIA [id number] [facility] [place] [address] [place] Neutrophils (Bld) [#/Vol] 4.05 10*3/uL Normal 1.45-7.50 [facility] Comment on above: Order Comment: Speci men Type: BLOOD SPECIMENOrdering Facility: [facility] Address: [address] [place] [address] Performed By: #### 5 7021-8 ####[facility] LABCLIA [id number] [facility] [place] [address] [place] Neutrophils/100 WBC (Bld) 60.1 % Normal [facility] Comment on above: Order Comment: Speci men Type: BLOOD SPECIMENOrdering Facility: [facility] Address: [address] [place] [address] Performed By: #### 5 7021-8 ####[facility] LABCLIA [id number] [facility] [place] [address] [place] Nucleated RBC (Bld) [#/Vol] Normal [facility] Comment on above: Order Comment: Speci men Type: BLOOD SPECIMENOrdering Facility: [facility] Address: [address] [place] [address] Performed By: #### 5 7021-8 ####[facility] LABCLIA [id number] [facility] [place] [address] [place] Nucleated RBC/100 WBC (Bld) [Ratio] Normal [facility] Comment on above: Order Comment: Speci men Type: BLOOD SPECIMENOrdering Facility: [facility] Address: [address] [place] [address] Performed By: #### 5 7021-8 ####[facility] LABCLIA [id number] [place] [address] [place] Platelet mean volume (Bld) [Entitic vol] 9.7 fL Normal 9.0-12.7 [facility] Comment on above: Order Comment: Speci men Type: BLOOD SPECIMENOrdering Facility: [facility] Address: [address] [place] [address] Performed By: #### 5 7021-8 ####[facility] LABCLIA [id number] [facility] [place] [address] [place] Platelets (Bld) [#/Vol] 263 10*3/uL Normal 150-400 [facility] Comment on above: Order Comment: Speci men Type: BLOOD SPECIMENOrdering Facility: [facility] Address: [address] [place] [address] Performed By: #### 5 7021-8 ####[facility] LABCLIA [id number] [facility] [place] [address] [place] RBC (Bld) [#/Vol] 4.76 10*6/uL Normal 4.20-6.00 [facility] Comment on above: Order Comment: Speci men Type: BLOOD SPECIMENOrdering Facility: [facility] Address: [address] [place] [address] Performed By: #### 5 7021-8 ####[facility] LABCLIA [id number] [place] [address] [facility] WBC (Bld) [#/Vol] 6.75 10*3/uL Normal 3.70-11.00 [facility] Comment on above: Order Comment: Speci men Type: BLOOD SPECIMENOrdering Facility: [facility] Address: [address] [place] [address] Performed By: #### 5 7021-8 ####[facility] LABCLIA [id number] [place] [address] [facility] CT ABD/PEL WO IVCONon 2024 CT ABD/PEL WO IVCON * * *Final Report* * * DATE OF EXAM: Sep 18 2024 6:37[facility]L [facility] / PROCEDURE REASON: right lower back/flank pain, history of kidney stone * * * * Physician Interpretation * * * * EXAMINATION: CT ABDOMEN AND PELVIS WITHOUT IV CONTRAST CLINICAL HISTORY: Right flank pain, right lower back pain TECHNIQUE: Non-IV contrast imaging of the abdomen and pelvis was performed using standard technique, scanning from just above the dome of the diaphragm to the symphysis pubis. Unenhanced imaging is limited for the evaluation of some intra-abdominal and pelvic pathology. MQ: CTAPWO_3 Contrast: IV: None : ml of CT Radiation dose: Integrated Dose-length product (DLP) for this visit = 240.01 mGy*cm. CT Dose Reduction Employed: Automated exposure control(AEC) and iterative recon COMPARISON: None. RESULT: Abdomen / Pelvis: Liver: Unremarkable unenhanced liver. Biliary: Gallbladder is unremarkable. Spleen: No splenomegaly. Pancreas: Unremarkable. Adrenals: No mass. Right kidney and ureter: There is a 3 mm nonobstructing stone in the inferior pole. No ureteral stone. No hydronephrosis. Left kidney and ureter: No renal or ureteral stone. No hydronephrosis. GI Tract: No bowel dilation. Normal appendix. Lymph Nodes: No lymphadenopathy. Mesentery/peritoneum: No ascites. Retroperitoneum: No mass. Vasculature: No abdominal aortic or iliac artery aneurysm. Pelvis: No mass or ascites. Bladder is unremarkable. Bones/Soft Tissues: No acute abnormality. Lower thorax: Unremarkable. Localizer images: No additional findings. IMPRESSION: There is a 3 mm nonobstructing stone in the inferior pole of the right kidney. Media Relations Director: PSCB Transcribe Date/Time: Sep 18 2024 7:35A Dictated by : AIDEN ALEX MD This examination was interpreted and the report reviewed and electronically signed by: AIDEN ALEX MD on Sep 18 2024 7:45AM EST [id number] Normal [facility] ED NOTEon 09-18-2024 ED NOTE HNO ID: [id number] Author: FIONA DONNELLY RN Service: Emergency Medicine Author Type: Registered Nurse Type: ED Notes Filed: 09/19/2024 10:59 Note Text: Emergency Services: ED Call Back Questionnaire SERVICE DATE: 09/18/2024 Are you feeling better? Yes Any questions about discharge instructions and follow-up care? No Were you able to make a follow up appointment? Yes Do you have any further questions? No Is there anything that we could have done differently to improve your ED visit? No SIGNATURE: Fiona Donnelly RN PATIENT NAME: Elpidio Cornelius DATE: September 19, 2024 TIME: 10:59 AM Normal [facility] ED PROV NOTEon 09-18-2024 ED PROV NOTE HNO ID: [id number] Author: MANDY YEBOAH DO Service: Emergency Medicine Author Type: Physician Type: ED Provider Notes Filed: 09/18/2024 07:16 Note Text: ED Provider Note Patient Name: Elpidio Cornelius : 1965 SERVICE DATE: 09/18/24 History Patient presents with: Flank Pain Elpidio Cornelius is a 59 year old male who presents with Flank Pain. - Symptoms began few days ago. - Severity: moderate - Timing: constant - Quality: sore - Symptoms are associated with right lower back, difficulty urinating this morning. - Symptoms are not associated with abdominal pain, chest pain, chills, fever, rash, shortness of breath, vomiting, dysuria, hematuria. Patient presents with right lower back/flank pain that started 3 days ago. He states that he has a history of kidney stones and is not sure if maybe this is a kidney stone. He states 2 days ago he backed into a step, but notes that the pain he was having the pain prior to that. He states that he has no pain rating into his abdomen. No testicular pain. No dysuria or hematuria, but notes this morning he is having little difficulty urinating. No fever or chills. No vomiting. PAST MEDICAL HISTORY Diagnosis Date GERD (gastroesophageal reflux disease) NEGATIVE MEDICAL HISTORY PAST SURGICAL HISTORY Procedure Laterality Date COLONOSCOPY FLX DX W/COLLJ SPEC WHEN PFRMD 12/24/2018 Colonoscopy ELBOW RIGHT Right has had ozone injections on right elbow 10/22/16 and 10/08/16 TONSILLECTOMY HX FAMILY HISTORY Adopted: Yes Problem Relation Age of Onset No Known Problems Mother No Known Problems Father No Known Problems Sister No Known Problems Brother No Known Problems Maternal Grandmother No Known Problems Maternal Grandfather No Known Problems Paternal Grandmother No Known Problems Paternal Grandfather other (unknown) Other pt adopted other (ms) Daughter 32 Drug abuse Daughter Social History[1] ALLERGIES No Known Allergies Review of Systems Constitutional: Negative for chills and fever. Respiratory: Negative for shortness of breath. Cardiovascular: Negative for chest pain. Gastrointestinal: Negative for abdominal pain and vomiting. Genitourinary: Positive for flank pain. Negative for dysuria, hematuria and testicular pain. Musculoskeletal: Positive for back pain. Skin: Negative for rash. Neurological: Negative for syncope, weakness and numbness. Psychiatric/Behaviora l: Negative for agitation and confusion. Physical Exam Vitals [09/18/24 0531] BP Pulse Temp Temp src Resp SpO2 Weight Height 108/81 73 36.2 ?C (97.2 ?F) -- 20 99 % 61.2 kg (135 lb) -- Physical Exam Vitals and nursing note reviewed. Constitutional: Appearance: He is not toxic-appearing or diaphoretic. HENT: Head: Normocephalic and atraumatic. Eyes: Conjunctiva/sclera: Conjunctivae normal. Cardiovascular: Rate and Rhythm: Normal rate and regular rhythm. Pulses: Normal pulses. Pulmonary: Effort: Pulmonary effort is normal. Breath sounds: Normal breath sounds. Abdominal: General: Abdomen is flat. Bowel sounds are normal. There is no distension. Palpations: Abdomen is soft. Tenderness: There is no abdominal tenderness. There is no right CVA tenderness, left CVA tenderness, guarding or rebound. Musculoskeletal: Thoracic back: No tenderness. Lumbar back: Tenderness (right lumbar paraspinal) present. No bony tenderness. Skin: General: Skin is warm and dry. Capillary Refill: Capillary refill takes less than 2 seconds. Findings: No rash. Neurological: General: No focal deficit present. Mental Status: He is alert and oriented to person, place, and time. GCS: GCS eye subscore is 4. GCS verbal subscore is 5. GCS motor subscore is 6. Sensory: Sensation is intact. Motor: Motor function is intact. Psychiatric: Mood and Affect: Mood normal. Behavior: Behavior normal. Diagnostic Testing ED Labs Ordered and Reviewed BASIC METABOLIC PANEL - Abnormal; Notable for the following components: Result Value Ref Range Glucose 115 (*) 74 - 99 mg/dL All other components within normal limits COMPLETE BLOOD COUNT AND DIFFERENTIAL URINALYSIS (WITH MICROSCOPIC) WITH CULTURE IF INDICATED Procedures ED Course / Clinical Impression MDM / Disposition / Plan Will obtain labs, CT abdomen pelvis. Labs Reviewed BASIC METABOLIC PANEL - Abnormal; Notable for the following components: Glucose 115 (*) All other components within normal limits COMPLETE BLOOD COUNT AND DIFFERENTIAL URINALYSIS (WITH MICROSCOPIC) WITH CULTURE IF INDICATED Patient signed out to Dr. Smiley at 7 am pending UA, CT abdomen/pelvis results, re-evaluation, and disposition. SIGNATURE: Mandy Yeboah, MANDY PARADA 09/18/24 0715 [1] Social History Tobacco Use Smoking status: Some Days Types: Cigarettes Smokeless tobacco: Current Types: Snuff Vaping Use Vaping status: (more content not included)... Normal [facility] Urinalysis complete panel (U )on 09-18-2024 Bilirubin Ql (U) Negative Normal Negative [facility] Comment on above: Order Comment: Speci men Type: URINE SPECIMENOrdering Facility: [facility] Address: [address] [place] [address] [place] [address] Performed By: #### 2 4356-8 ####[facility] LABCLIA [id number] [facility] [place] [address] [facility] Clarity (Unsp spec) Clear Normal Clear [facility] Comment on above: Order Comment: Speci men Type: URINE SPECIMENOrdering Facility: [facility] Address: [address] [place] [address] Performed By: #### 2 4356-8 ####[facility] LABCLIA [id number] [facility] [place] [address] [facility] Color (U) Yellow Normal Yellow [facility] Comment on above: Order Comment: Speci men Type: URINE SPECIMENOrdering Facility: [facility] Address: [address] [place] [address] Performed By: #### 2 4356-8 ####[facility] LABCLIA [id number] [place] [address] [facility] Glucose Test strip (U) [Mass/Vol] Negative Normal Negative [facility] Comment on above: Order Comment: Speci men Type: URINE SPECIMENOrdering Facility: [facility] Address: [address] [place] [address] Performed By: #### 2 4356-8 ####[facility] LABCLIA [id number] [place] [address] [place] Hemoglobin Ql (U) Trace Abnormal Negative [facility] Comment on above: Order Comment: Speci men Type: URINE SPECIMENOrdering Facility: [facility] Address: [address] [place] [address] Performed By: #### 2 4356-8 ####[facility] LABCLIA [id number] [place] [address] [facility] Ketones Ql (U) Negative Normal Negative [facility] Comment on above: Order Comment: Speci men Type: URINE SPECIMENOrdering Facility: [facility] Address: [address] [place] [address] Performed By: #### 2 4356-8 ####[facility] LABCLIA [id number] [facility] [address] [place] [facility] Leukocyte esterase Test strip Ql (U) Negative Normal Negative [facility] Comment on above: Order Comment: Speci men Type: URINE SPECIMENOrdering Facility: [facility] Address: [address] [place] [address] Performed By: #### 2 4356-8 ####[facility] LABCLIA [id number] [place] [address] [place] OF [place] Nitrite Ql (U) Negative Normal Negative [facility] Comment on above: Order Comment: Speci men Type: URINE SPECIMENOrdering Facility: [facility] Address: [address] [place] [address] Performed By: #### 2 4356-8 ####[facility] LABCLIA [id number] [place] [address] [place] pH (U) 7.5 [pH] Normal 5.0-8.0 [facility] Comment on above: Order Comment: Speci men Type: URINE SPECIMENOrdering Facility: [facility] Address: [address] [place] [address] Performed By: #### 2 4356-8 ####[facility] LABCLIA [id number] [place] [address] [facility] Protein (U) [Mass/Vol] Negative Normal Negative [facility] Comment on above: Order Comment: Speci men Type: URINE SPECIMENOrdering Facility: [facility] Address: [address] [place] [address] Performed By: #### 2 4356-8 ####[facility] LABCLIA [id number] [place] [address] [place] [facility] RBC LM.HPF (Urine sed) [#/Area] 0-3 /HPF Normal 0-3 /HPF [facility] Comment on above: Order Comment: Speci men Type: URINE SPECIMENOrdering Facility: [facility] Address: [address] [place], [place] [id number] Performed By: #### 2 4356-8 ####[facility] LABCLIA [id number] [place] [id number] [facility] Specific gravity (U) [Rel density] 1.020 Normal 1.005-1.030 [facility] Comment on above: Order Comment: Speci men Type: URINE SPECIMENOrdering Facility: [facility] Address: [address] [place] [address] Performed By: #### 2 4356-8 ####[facility] LABCLIA [id number] [place] [id number] [facility] Urobilinogen Ql (U) 0.2 EU/dL Normal 0.2-1.0 EU/dL [facility] Comment on above: Order Comment: Speci men Type: URINE SPECIMENOrdering Facility: [facility] Address: [address] [place] [address] Performed By: #### 2 4356-8 ####[facility] LABCLIA [id number] [place] [id number] [facility] WBC LM.HPF (Urine sed) [#/Area] 0-5 /HPF Normal 0-5 /HPF [facility] Comment on above: Order Comment: Speci men Type: URINE SPECIMENOrdering Facility: [facility] Address: [address] [place] [address] Performed By: #### 2 4356-8 ####[facility] LABCLIA [id number] [place] [id number] [facility] CNOVon 09-12-2024 CNOV Office Visit (AGMATTEOMPLE) ELPIDIO CORNELIUS ([id number]) 1965 M Date Time Provider Department 09/12/24 4:00 PM KIMBERLY PADILLA During your visit today, we recorded the following information about you: Temperature Pulse Respiration Blood pressure 98.1 degrees 71/minute 18/minute 116/62 Weight Height 61.2 kg 1.702 m Kimberly Padilla APRN.ACADEMY EDUCATION DIRECTOR 09/14/2024 8:48 PM Signed CHIEF COMPLAINT: Elpidio Cornelius is a 59-year-old male presenting for evaluation of recurrent vertigo and tinnitus. I reviewed past medical, surgical, social, and family histories today and updated chart. Allergies, chronic medications, and supplements were also reviewed. Recording using [employer] software for draft documentation of the visit was discussed with the patient/authorized community engagement representative; all questions welcomed and answered. Patient/authorized community engagement representative agreed to proceed Vertigo: - Recurrent episodes of vertigo, x2 months. - Sensation of falling over when turning to the left while driving. - Episodes of dizziness when standing up or turning quickly. 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 - Elpidio denies any history of ear infections. - No pain when opening and closing the jaw. - Elpidio denies known trauma. Tinnitus: - Constant tinnitus in the right ear, described as hearing a heartbeat or whoosh sound. - Occasionally experiences ringing in the ears. - Tinnitus is more noticeable in quiet environments; uses a fan at night to drown out the sound. - No improvement with ayjf-jat-rolbzaf treatments. - Elpidio denies use of meclizine or Antivert. - Wears hearing protection in loud environments and when riding a motorcycle. - No history of ear infections. - States he saw ENT previously and they told him his hearing was normal and gave no other suggestions Past Medical History: No date: GERD (gastroesophageal reflux disease) No date: NEGATIVE MEDICAL HISTORY PAST SURGICAL HISTORY Procedure Laterality Date COLONOSCOPY FLX DX W/COLLJ SPEC WHEN PFRMD 12/24/2018 Colonoscopy ELBOW RIGHT Right has had ozone injections on right elbow 10/22/16 and 10/08/16 TONSILLECTOMY HX Social History Tobacco Use Smoking status: Some Days Types: Cigarettes Smokeless tobacco: Current Types: Snuff Vaping Use Vaping status: Never Used Substance Use Topics Alcohol use: Not Currently Drug use: Yes Types: Marijuana Comment: weekends No Known Allergies Family History Adopted: Yes Problem Relation Age of Onset No Known Problems Mother No Known Problems Father No Known Problems Sister No Known Problems Brother No Known Problems Maternal Grandmother No Known Problems Maternal Grandfather No Known Problems Paternal Grandmother No Known Problems Paternal Grandfather other (unknown) Other pt adopted other (ms) Daughter 32 Drug abuse Daughter Current Outpatient Medications Medication Sig Dispense Refill omeprazole (PRILOSEC) 20 mg capsule Take 1 capsule by mouth once daily. 90 capsule 1 sildenafil (VIAGRA) 100 mg tablet Take 1 tablet by mouth as needed. 8 tablet 2 meclizine (ANTIVERT) 12.5 mg tab Take 1 tablet by mouth every 6 hours as needed (for dizziness). 30 tablet 0 No current facility-administered medications for this visit. Review of Systems Ears/Nose/Mouth/Throa t: (+) right pulsatile tinnitus, (-) jaw pain Neurological: (+) dizziness, (+) vertigo, (+) imbalance sensation BP 116/62 Pulse 71 Temp (Src) 98.1 (Oral) Resp 18 Ht 5' 7 (1.70m) Wt 135 lb (61.2kg) SpO2 96% BMI 21.14 kg/(m2). Physical Exam GENERAL: NAD, alert and oriented SKIN: Unremarkable, no rash or skin lesions. HEAD: Normocephalic EYES: PERRLA, EOMI, conjunctiva clear EARS: External ears normal, canals clear, TM's normal. NOSE/SINUSES: Nares normal. Septum midline. OROPHARYNX: Lips, mucosa, and tongue normal, good dentition. No oral lesions noted. NECK: Supple, no lymphadenopathy, normal thyroid, no carotid bruits. LUNGS: Clear to auscultation bilaterally, no wheezes/rhonchi/rales . HEART: Regular rate and rhythm, no murmurs. NEURO: Awake, alert and oriented x3, cranial nerves II-XII grossly intact Labs Imaging Tests - Audiometric evaluation: Normal hearing (no date provided). ASSESSMENT/PLAN: 1. Vertigo (R42) 2. Tinnitus of right ear (H93.11) - Symptoms consistent with BPPV. - Start Antivert (meclizine) as needed for vertigo episodes; advised patient to take first dose at home to assess for drowsiness. - Refer to vestibular therapy for maneuvers to reposition otoliths. - Refer to ENT in [place] for further evaluation and second opinion. - Provided education on BPPV, including explanation of inner ear crystals and their role in balance. 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 [facility] ED NOTEon 05-03-2024 ED NOTE HNO ID: [id number] Author: CHRISTOPHER SARAH RN Service: Nursing Author Type: Registered Nurse Type: ED Notes Filed: 05/03/2024 09:49 Note Text: Patient leaves pleasant and cooperative, alert and oriented x 3 with regular and easy respirations. Discharge instructions discussed. There are no additional questions for the provider. Will follow up as directed or return to ED for worsening or life threatening symptoms. [facility] ED NOTE HNO ID: [id number] Author: BHUPINDER ROSALES RN Service: ? Author Type: Registered Nurse Type: ED Notes Filed: 05/04/2024 09:39 Note Text: Patient Call Back Information How are you doing ? better Did we appropriately manage your pain? Yes Did you understand your discharge instructions? yes Did you get your prescriptions filled? Were you able to make a follow-up appointment with your physician? No Were you comfortable during your stay here? Yes Did a member of the ER nursing team round on you during your visit? Yes You will receive a patient satisfaction survey in the mail in the nest 2 weeks, please take the time to fill out the survey as your input from your ER visit is very important to us. Yes Can we do anything else to help you? No [facility] ED NOTE HNO ID: [id number] Author: CHRISTOPHER SARAH, CARROLL Service: Nursing Author Type: Registered Nurse Type: ED Notes Filed: 05/03/2024 09:06 Note Text: remains at bedside. [facility] ED NOTE HNO ID: [id number] Author: CHRISTOPHER SARAH RN Service: Nursing Author Type: Registered Nurse Type: ED Notes Filed: 05/03/2024 09:11 Note Text: Patient started with an episode of GERD yesterday. Everytime he burps a large amount of stomach content regurgitates into his esophagus. He feels it is worse than usual. He took omeprazole 20mg at 8pm yesterday and again at midnight. The reflux has continued. He reports a burning epigastric pain. No hematemesis, SOB or chest pain reported. Yesterday he ate a meal of grenadian style foods. He uses snuff and is a former smoker. He has never had an EGD. This testing was reccommended by his PCP during Covid, but because the Covid vaccine was required, the patient opted to forgo testing at bedside. Normal [facility] ED PROV NOTEon 05-03-2024 ED PROV NOTE HNO ID: [id number] Author: JEWELL SCHWAB MD Service: Emergency Medicine Author Type: Physician Type: ED Provider Notes Filed: 05/03/2024 09:44 Note Text: ED Provider Note Patient Name: Elpidio Cornelius : 1965 SERVICE DATE: 05/03/24 History Patient presents with: Abdominal Pain The patient is a 58-year-old male presenting today with complaint of GERD. Patient states he had an episode last night that his normal medications were not working for her. Patient states he has an issue with GERD. He seen his primary care physician for this as well as GI. They wanted to do a scope but was unable to do so. He was placed on omeprazole told to take as needed. Patient states he started getting burning sensation last night while sleeping. He states that he went to sit in a chair but the sensation continued and he with then hiccup causing acid and stomach contents to go up into his throat. He would spit these out but will cause irritation to his throat as well as to his lower epigastric area. He took an omeprazole at 8 PM. States that this did not help so he took a second 1 at midnight. He states he was still having symptoms this morning so he comes into the emergency department. Patient states he does tend to eat his meals right before bed in terms of dinner. Last night he had a chili Chaga for dinner and Burmese for lunch. States he typically drinks water throughout the day and 1 glass of coffee in the morning but with his meals he likes orange juice or lemonade. states he drink a lot of orange juice and lemonade yesterday but or bed. States he does not have any Pepcid or Maalox at home. He is tried Tums in the past with these have not helped. He does not drink alcohol to speak of. No nausea or vomiting associated with his symptoms although he states he came close to vomiting last night with coughing. He denies any new medications. Currently he is stating that his symptoms are starting to subside to standing in the room talking with me. PAST MEDICAL HISTORY Diagnosis Date GERD (gastroesophageal reflux disease) NEGATIVE MEDICAL HISTORY PAST SURGICAL HISTORY Procedure Laterality Date COLONOSCOPY FLX DX W/COLLJ SPEC WHEN PFRMD 12/24/2018 Colonoscopy ELBOW RIGHT Right has had ozone injections on right elbow 10/22/16 and 10/08/16 TONSILLECTOMY HX FAMILY HISTORY Adopted: Yes Problem Relation Age of Onset No Known Problems Mother No Known Problems Father No Known Problems Sister No Known Problems Brother No Known Problems Maternal Grandmother No Known Problems Maternal Grandfather No Known Problems Paternal Grandmother No Known Problems Paternal Grandfather other (unknown) Other pt adopted other (ms) Daughter 32 Drug abuse Daughter Social History Tobacco Use Smoking status: Some Days Types: Cigarettes Smokeless tobacco: Current Types: Snuff Vaping Use Vaping status: Never Used Substance and Sexual Activity Alcohol use: Not Currently Drug use: Yes Types: Marijuana Comment: weekends Sexual activity: Not on file ALLERGIES No Known Allergies Review of Systems Constitutional: Negative for activity change, appetite change, chills, fatigue and fever. HENT: Negative for congestion, ear pain, rhinorrhea and sore throat. Respiratory: Negative for cough and shortness of breath. Cardiovascular: Negative for chest pain and palpitations. Gastrointestinal: Positive for abdominal pain. Negative for diarrhea, nausea and vomiting. Genitourinary: Negative for dysuria, frequency and urgency. Musculoskeletal: Negative for arthralgias and myalgias. Skin: Negative for rash and wound. Neurological: Negative for dizziness and headaches. Psychiatric/Behaviora l: Negative for self-injury and suicidal ideas. All other systems reviewed and are negative. Physical Exam Vitals [05/03/24 0814] BP Pulse Temp Temp src Resp SpO2 Weight Height 110/74 86 36.5 ?C (97.7 ?F) Temporal Art 16 96 % 65.8 kg (145 lb) -- Physical Exam Vitals and nursing note reviewed. Constitutional: General: He is not in acute distress. Appearance: He is well-developed. HENT: Head: Normocephalic and atraumatic. Nose: Nose normal. Mouth/Throat: Mouth: Mucous membranes are moist. Eyes: Pupils: Pupils are equal, round, and reactive to light. Cardiovascular: Rate and Rhythm: Normal rate and regular rhythm. Heart sounds: Normal heart sounds. No murmur heard. No friction rub. No gallop. Pulmonary: Effort: Pulmonary effort is normal. No respiratory distress. Breath sounds: Normal breath sounds. No stridor. No wheezing, rhonchi or rales. Abdominal: General: Bowel sounds are normal. There is no distension. Palpations: Abdomen is soft. Tenderness: There is no abdominal tenderness. There is no guarding or rebound. Negative signs include Kumar's sign. Musculoskeletal: General: Normal range of motion. Cervical back: Normal range of m (more content not included)... Normal [facility] Provider Note - ED v3on 04- Provider Note - ED v3 Provider Note: Chart Review: HISTORY OF PRESENTING ILLNESS ELPIDIO is a 56 year old Male and was seen by me at 18-May-2022 14:24. Triage Information: Most recent Vital Sign Value Date PAST MEDICAL HISTORY ALLERGIES/INTOLERANCE S: No Known Allergies HEALTH HISTORY: No documented data. OUTPATIENT MEDICATIONS: Home Medications Review Status for Reconciliation: Complete Med Status: Patient Currently Takes Medications Drug Name: albuterol 90 mcg/inh inhalation aerosol Instructions: 2 puff(s) inhaled 2 times a day as needed for cough Drug Name: doxycycline hyclate 100 mg oral capsule Instructions: 1 cap(s) orally 2 times a day x 7 days Drug Name: benzonatate 200 mg oral capsule Instructions: 1 cap(s) orally 3 times a day x 5 days, As Needed cough SIGNIFICANT EVENTS: No documented data. CRITICAL CARE VITAL SIGNS: T PRBP SpO2O2(LPM) %FiO2 Method 18-May-2022 14:20:[id number]/ 81 97 [facility] MDM/ED COURSE: Chief Complaint: Cough and congestion History of Present Illness: This is a 56-year-old male has had a cough for about a month. He states he recently finished some prednisone and an inhaler and a Z-Jr and he felt better for several days but now is getting progressively worse and having a cough again. Patient denies any chest pain or shortness of breath does report some productive phlegm and he is a smoker. He has minimized his smoking since he has been sick. He denies any nausea vomiting diarrhea or constipation. And does report some sinus pressure and drainage as well. Review of Systems All systems negative except as noted in HPI or elsewhere in the chart Constitutional: no fever, chills, weakness, dizziness Eyes: no redness, discharge, vision change, pain ENT: no sore throat, nosebleeds,+ rhinorrhea, hearing loss, ear pain, ear discharge Cardiovascular: no chest pain, leg edema, palpitations Respiratory: no shortness of breath, +cough, dyspnea on exertion, pleurisy, hemoptysis GI: no nausea, diarrhea, pain, vomiting, constipation, BRBPR, melena, heartburn : no dysuria, discharge, frequency, flank pain, hematuria, bleeding Musculoskeletal: no myalgia, neck/back pain, redness, arthralgia, inflammation Skin: no rash, bruising, contusions, swelling, lacerations, abrasions Neurological: no headache, numbness, change in function, weakness, AMS, paresthesias, speech change Psychiatric: no AMS, agitation, suicidal, confusion, depression, anxiety Metabolic: no fatigue, polyuria, hair change, dry skin, weakness, polydipsia, temperature intolerance Hematologic: no bleeding, nodes, bruising, petechiae Allergic: no rhinorrhea, sneezing, atopic dermatitis, frequent URIs PMFSH Nursing notes reviewed and confirmed by me. Past Medical History: denies Past Surgical History: Tetanus: UTD Family History: no DM, HTN, CAD, CVA, Cancer Social History: +smoking, alcohol use, substance abuse, lives alone, marital status Allergies and Medications: See nurses notes. Physical Exam Constitutional: Vital signs per nursing notes. Well developed, well nourished. No acute distress. Middle-age male, appears to be in good health evaluated in urgent care Psychiatric: alert and oriented to person, place, and time; no abnormalities of mood or affect; memory intact Eyes: PERRL; conjunctivae and lids normal; EOMI ENT: otoscopic exam of external canal and TMs normal; nasal mucosa, turbinates, and septum normal; mouth, tongue, and pharynx normal; pharynx without edema, exudate, or injection, maxillary and frontal sinus tenderness to palpation Neck: neck supple, no meningismus; trachea midline without deviation; no lymphadenopathy; no thyromegaly; carotid pulses even bilaterally Chest: no masses or tenderness, no discharge Respiratory: normal respiratory effort and excursion; no rales, rhonchi, no wheezes; equal air entry Cardiovascular: regular rate and rhythm; no murmurs, rubs or gallops; symmetric pulses; no edema; normal capillary refill; distal pulses present Neurological: normal speech; CN II-XII grossly intact; Musculoskeletal: normal gait and station; normal digits and nails; no gross tendon or ligament injury; normal to palpation; normal strength/tone; neurovascular status intact; (-) Homans sign; (-) straight leg raise Skin: normal to inspection; normal to palpation; no rash GCS: 15 Patient with worsening symptoms after finishing a Z-Jr. Patient diagnosed with bronchitis ruling out community-acquired pneumonia. Lungs are generally clear with no wheezing. He still has an inhaler that he has been using twice a day. He is finished the prednisone that was prescribed and the Z-Jr. He will be given 7 days of doxycycline prescription. Patient was offered a note for work. He has no respiratory distress and no hypoxia noted on vital signs. Discharged home stable condition I discussed the results and dischar (more content not included)... Normal [facility] Provider Note - ED v3on Provider Note - ED v3 Provider Note: Chart Review: ED NOTES ED NOTES: Presents for evaluation of URI. Symptoms including cough, congestion, body aches, malaise, and headache have been present for 7 days and refractory to OTC meds. No fever, chills, loss of taste/smell, nausea, vomiting, abdominal pain, CP, or SOB. No exacerbating factors. No known COVID 19/flu exposure. Is a current smoker and has a hx of bronchitis. HISTORY OF PRESENTING ILLNESS ELPIDIO is a 56 year old Male and was seen by me at 09-May-2022 10:55. Triage Information: Most recent Vital Sign Value Date PAST MEDICAL HISTORY ALLERGIES/INTOLERANCE S: No Known Allergies HEALTH HISTORY: No documented data. OUTPATIENT MEDICATIONS: Home Medications Review Status for Reconciliation: Complete Med Status: Patient Currently Takes Medications Drug Name: azithromycin 250 mg oral tablet Instructions: Take 2 tabs (500mg) x 1 days, then 1 tab (250mg) once daily x 4 days Drug Name: predniSONE 20 mg oral tablet Instructions: 1 tab(s) orally once a day Drug Name: albuterol 90 mcg/inh inhalation aerosol Instructions: 2 puff(s) inhaled 2 times a day as needed for cough SIGNIFICANT EVENTS: No documented data. REVIEW OF SYSTEMS All other systems reviewed and are negative REVIEW OF SYSTEMS: Comments See HPI PHYSICAL EXAM CONSTITUTIONAL: Frequent dry cough during exam, well nourished, awake, alert, oriented to person, place, time/situation and in no apparent distress. HENMT: Airway patent, ears with clear tympanic membranes bilaterally. Nasal mucosa clear. Mouth with normal mucosa. Throat has no vesicles, no oropharyngeal exudates and uvula is midline. Face with no lymph node enlargement. EYES: Clear bilaterally, pupils equal, round and reactive to light. CARDIOVASCULAR: Normal rate, regular rhythm. Heart sounds S1, S2. No murmurs, rubs or gallops. PMI non-displaced. RESPIRATORY: Breath sounds clear and equal bilaterally. NEUROLOGICAL: Alert and oriented, no focal deficits, no motor or sensory deficits. SKIN: Skin normal color for race, warm, dry and intact. No evidence of trauma. PSYCHIATRIC: Alert and oriented to person, place, time/situation. normal mood and affect. No apparent risk to self or others. CRITICAL CARE VITAL SIGNS: T PRBP SpO2O2(LPM) %FiO2 Method 09-May-2022 10:46:[id number]/ 85 95 MDM MDM/ED COURSE: Discussed Findings with: patient Data Reviewed: vital signs Treatment Plan: Rx Zpak, prednisone and albuterol inhaler. Encouraged pt to continue otc cold remedies PRN, push by mouth fluids and rest. Patient's clinical presentation is otherwise unremarkable at this time. Patient is discharged with instructions to follow-up with primary care or seek emergency medical attention for worsening symptoms or any new concerns. DISPOSITION Diagnosis/Annotation: ED Dx Name:Acute bronchitis Code:J20.9 Disposition: discharged Type: home CONSULT CRITICAL CARE TIME Is this a critically ill patient: no Electronic Signatures: Jovan Jacobson (SALAD COUNTER ATTENDANT-ACADEMY EDUCATION DIRECTOR) (Signed 09-May-2022 11:06) Authored: ED Notes, HPI, PMH, ROS, PE, Results/Vital Signs, MDM/ED Course, Clinical Impression, Attestation, Chart Review, Scores Last Updated: 09-May-2022 11:06 by Jovan Jacobson (SALAD COUNTER ATTENDANT-ACADEMY EDUCATION DIRECTOR) [facility] Clinical Summary: HMSPatient IDon 05-16-[address] [facility] Jasmin [facility] Work Phone: PROGRESSon 03-11-2019 PROGRESS HNO ID: [id number] Author: Flaquito Gilbert Service: ? 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 Author Type: Physician Type: Anesthesia PostOp Filed: 12/24/2018 3:40 PM Note Text: POST ANESTHESIA EVALUATION NOTE SERVICE DATE: 12/24/2018 SERVICE TIME: 3:40 PM : 1965 Vitals: 12/24/18 1316 Temp: 36.7 ?C (98 ?F) 12/24/18 1316 BP: 113/77 12/24/18 1316 Pulse: 87 12/24/18 1316 Resp: 15 12/24/18 1316 SpO2: 98% Validated Vital Signs: Yes POST ANES STATUS: No apparent anesthetic complications. The patient is appropriately hydrated with stable respiratory and cardiovascular status. Patient has safe and adequate airway control. The patient has appropriate pain relief and no significant post operative nausea or vomiting. The patient has achieved baseline mental status. Intra-Operative Events: No Significant Anesthesia Events Further assessment by Anesthesia Service: None Other Remarks: SIGNATURE: Taylor Colon MD PATIENT NAME: Elpidio Cornelius DATE: December 24, 2018 TIME: 3:40 PM PAGER/CONTACT #: [facility] ANES PREOPon 12-24-2018 ANES PREOP HNO ID: [id number] Author: Taylor Colon Service: ? Author Type: Physician Type: Anesthesia PreOp Filed: 12/24/2018 3:00 PM Note Text: ANESTHESIOLOGY PREOPERATIVE ASSESSMENT SERVICE DATE: 12/24/2018 : 1965 SERVICE TIME: 3:00 PM Surgeon(s): Catherine Love Procedure(s) (LRB): COLONOSCOPY (N/A) Estimated body mass index is 22.24 kg/m? as calculated from the following: Height as of this encounter: 170.2 cm (5' 7). Weight as of this encounter: 64.4 kg (142 lb). MOST RECENT HEMATOCRIT AND POTASSIUM RESULTS: Hematocrit 47.5 07/13/2014 Potassium 4.0 07/13/2014 ANES DOS/PREOP NOTE: Vitals: 12/24/18 1316 BP: 113/77 Pulse: 87 Resp: 15 Temp: 36.7 ?C (98 ?F) SpO2: 98% Weight: 64.4 kg (142 lb) Height: 170.2 cm (5' 7) ACTIVE PROBLEM LIST Golfer's Elbow Hyperopia Pain in Right Elbow Right Arm Weakness Tennis Elbow PAST MEDICAL HISTORY Diagnosis Date - NEGATIVE MEDICAL HISTORY PAST SURGICAL HISTORY Procedure Laterality Date - COLONOSCOP W/ OR W/O [facility] SPEC 12/24/2018 Colonoscopy - ELBOW RIGHT Right has had ozone injections on right elbow 10/22/16 and 10/08/16 - TONSILLECTOMY HX FAMILY HISTORY Problem Relation Age of Onset - other (unknown) Other pt adopted Social History: Social History Tobacco Use - Smoking status: Former Smoker Last attempt to quit: 12/24/2017 Years since quittin.0 - Smokeless tobacco: Current User Types: Chew Substance Use Topics - Alcohol use: No - Drug use: No No current facility-administered medications on file prior to encounter. Current Outpatient Medications on File Prior to Encounter Medication Sig - cyclobenzaprine (FLEXERIL) 5 mg tablet Take 1 tablet by mouth three times daily as needed. - naproxen (NAPROSYN) 500 mg tablet Take 1 tablet by mouth twice daily with meals. (Patient taking differently: Take 500 mg by mouth twice daily as needed. ) - sildenafil (VIAGRA) 100 mg tablet Take 1 tablet by mouth as needed. Current Facility-Administered Medications Medication Dose Route Frequency Provider Last Rate Last Dose - lidocaine 10 mg/mL (1 %) 1-2 mg injection (XYLOCAINE) 0.1-0.2 mL INTRADERMAL PRN Catherine Love - lactated ringers infusion 75 mL/hr INTRAVENOUS CONTINUOUS Catherine Love Allergies: ALLERGIES No Known Allergies REVIEW OF SYSTEMS: REVIEW OF SYSTEMS: As stated in Active Problem List/ Past Medical History ANESTHESIOLOGY REVIEW: Airway Assessment: MP 2; Neck ROM: Full ROM without neurologic symptoms; Airway Evaluation: Santana Present Symptoms of Sleep Apnea: Age over 50 (53 year old) and Male gender Intubation History: History of general anesthesia with no known difficulty Dentition: Missing tooth upper right Chipped, loose and/or missing ADDITIONAL PHYSICAL EXAM: Lungs: Lungs clear to auscultation. Good diaphragmatic excursion. Cardiac: normal S1 and S2; no rubs, no murmurs, and no gallops Additional Pertinent Findings: N/A ADVERSE ANESTHESIA EVENT: No history of adverse event FAMILY HIISTORY OF ANESTHESIA: No known issues BLOOD PRODUCTS: Not anticipated for this procedure OTHER MEDICAL PROBLEMS: None I have interviewed and examined the patient. I have reviewed the medical record and/or the pre-anesthesia evaluation, pertinent labs, and test results. Significant changes in the patient's condition since the History and Physical, not otherwise documented in primary service progress notes: No Anesthetic risks, benefits, alternatives, personnel and consent discussed: Yes ANES REVIEW: This contains information obtained greater than 48 hours prior to the Surgery/Procedure. See Day of Surgery Note SIGNATURE: Taylor Colon MD PATIENT NAME: Elpidio Cornelius JR DATE: December 24, 2018 TIME: 2:59 PM PAGER/CONTACT #: [facility] NURSING PROGon 12-24-2018 NURSING PROG HNO ID: [id number] Author: Symone OchoaRn) CARROLL Albert Service: Nursing Author Type: Registered Nurse Type: Nursing Progress Note Filed: 12/24/2018 4:16 PM Note Text: Patient denies pain or nausea. Passing air without difficulty. Taking taking po fluids and food without difficulty. Discharge instructions went over with patient and sent home with him. Voiding without difficulty. [facility] OPERATIVE NOon 12-24-2018 OPERATIVE NO HNO ID: [id number] Author: Catherine Love Service: ? Author Type: Physician Type: Operative Report Filed: 12/25/2018 7:41 AM Note Text: [facility] - Operative Report - [place] ELPIDIO CORNELIUS : 1965 AGE: 53. SEX: M PATIENT TYPE: A HOSP [facility] [place]: [facility] LOCATION: [facility] ATTENDING PHYSICIAN: Catherine Love MD CSN NUMBER: [id number] DATE OF SURGERY/PROCEDURE: 12/24/2018 INCISION/PROCEDURE START TIME: 3:10 PM INCISION CLOSE/PROCEDURE END TIME: 3:26 PM PREOPERATIVE DIAGNOSIS: Screening for colon cancer. POSTOPERATIVE DIAGNOSIS: Hemorrhoids. SURGEON: Catherine Love MD WATERWORKS OPERATOR: No Additional Staff SURGERY/PROCEDURE: Colonoscopy. ANESTHESIA: MAC. LOCATION: [facility]. SPECIMEN: None. ESTIMATED BLOOD LOSS: None. INDICATIONS: Elpidio Cornelius is a 53-year-old white male, who presents for his first screening colonoscopy. He does not know his family history as he is adopted. He consents for colonoscopy. He has been counseled of the risks of procedure including, but not limited to infection, bleeding, perforation, GI tract requiring emergency surgery, injury to any internal organs such as liver or spleen, inability to complete the procedure, complications of anesthesia, etc. The patient understands and agrees to proceed. DESCRIPTION OF PROCEDURE: After informed consent was given, the patient was brought to the endoscopy suite. Appropriate time-out protocol was done in the preprocedure area as well as in the endoscopy suite. The patient was given IV anesthesia by the anesthesia provider. The patient was placed in left lateral decubitus position. The endoscope was lubricated, carefully inserted in patient's anus and advanced into the rectum. It was then advanced into the sigmoid colon, then the left ascending colon, past splenic flexure into transverse colon, past hepatic flexure down the right ascending colon to the cecum. The cecum was identified by transillumination, confluence of teniae coli, intubation of the terminal ileum, and external palpation. At this level, the colonoscope slowly retracted back and entire colonic mucosal surface was examined. Of note is the colon cleansing preparation was poor. There was still retained fecal material. Substantial time was devoted to lavage and aspiration of fecal contents such that the colonic alegre could be visualized adequately and this was done. There was no evidence of any extrinsic compression or mucosal inflammatory changes throughout the colon. There was no evidence of any intrinsic strictures noted throughout the colon. There was no evidence of any masses or lesions noted in the right colon. There was no evidence of any masses or lesions noted in the transverse colon. There was no evidence of any masses or lesions in the left colon. There was no evidence of any masses or lesions in the sigmoid colon. Retroflex view in the rectum revealed hemorrhoidal changes. There was no evidence of any polyps in the rectum. The endoscope was removed intact. Digital examination revealed no palpable masses in the anal canal. The patient tolerated the procedure well, was brought to recovery room in stable condition. SPECIMENS: None. ESTIMATED BLOOD LOSS: None. DRAINS: None. COMPLICATIONS: None. RECOMMENDATIONS: screening colonoscopy in 10 years Catherine Love MD LW:[id number] /[id number] [facility] HISTORY PHYSICALon HISTORY PHYSICAL HNO ID: [id number] Author: Catherine Love Service: ? Author Type: Physician Type: HANDP Filed: 12/24/2018 1:56 PM Note Text: Chief Complaint: Here for screening for colon cancer via colonoscopy History of Present Illness: 53 y/o WM presents for screening for colon cancer via colonoscopy Denies any blood in stools. Denies changes in bowel habits. Denies abdominal pain. Denies previous colonoscopy. Denies weight loss. Unknown family medical history - patient was adopted Past Medical History: No major medical illnesses Past Surgical History: Right elbow surgery tonsillectomy Medications: naproxyn viagra Allergies: No known drug allergies Review of Systems: General - denies fevers, denies anorexia Cardiovascular ? denies chest pain Pulmonary ? denies shortness of breath, denies coughing up blood Gastrointestinal ? denies abdominal pain, denies blood in stools Neurological ? denies seizures Genitourinary ? denies blood in urine, denies burning with urination Hematological ? denies spontaneous/prolonged bleeding Skin ? denies nonhealing skin wounds Musculoskeletal ? right lower back pain Endocrine ? denies diabetes Psychological ? denies hallucinations Physical examination: Vital signs in chart, reviewed and noted by me Ht: 5'7 Wt: 141# General ? WD/WN WM in no apparent distress, alert and oriented Head ? Normocephalic. EOM intact with sclera clear. Mouth with mucus membranes moist. Neck - supple with no jugular venous distention noted. Trachea is midline. Lungs ? clear to auscultation. Normal breath sounds. No rales/rhonchi/wheezin g noted. Heart ? normal S1 and S2 auscultated. No rubs/clicks/murmurs noted. Regular rate. Abdomen ? soft and benign. Normal bowel sounds Extremities ? no calf tenderness noted. No pitting edema noted. Skin ? Normal skin integrity. Neurological ? non focal Psych ? calm and appropriate Impression: screening for colon cancer via colonoscopy Discussion/Plan/Recom mendations: I have discussed the above with the patient. I have offered colonoscopy I have explained the procedure to the patient. I have counseled the patient as to the risks of the procedure, including but not limited to: infection, bleeding, injury to any intrabdominal organs such as liver/spleen, perforation of the GI tract, inability to complete the procedure, complications of anesthesia, etc. ? the patient understands. The patient wishes to proceed. I have answered all questions to the patient?s satisfaction and the patient has no further questions. [facility] NURSING PROGon 12-18-2018 NURSING PROG HNO ID: [id number] Author: Chante (Rn) CARROLL Reeves Service: ? Author Type: Registered Nurse Type: Nursing Progress Note Filed: 12/18/2018 11:22 AM Note Text: Pt states understanding of all colonoscopy prep and procedures. [facility] Lexx 12-11-2018 CNPN Telephone (JHONATAN) ELPIDIO CORNELIUS ([id number]) 1965 M Date Time Provider Department 12/11/18 CATHERINE LOVE During your visit today, we recorded the following information about you: Suhail Canas RN, RN 12/11/2018 8:42 AM Signed Patient requests to be scheduled at [facility] for colonoscopy. Offered 12/24/18, patient agreeable with date. Open Access questionnaire filled out by LIP. Patient has picked up prep. Allergies As of Date: 12/11/2018 (No Known Allergies) Date Reviewed: 09/30/2018 Reviewed by: Suhail Doran ([facility]) BEN Nix - Fully Assessed Reason for Visit: Schedule Colonoscopy [place] [Other] Prescriptions as of 12/11/2018 Sig: CYCLOBENZAPRINE 5 MG TABLET Take 1 tablet by mouth three * NAPROXEN 500 MG TABLET Take 1 tablet by mouth twice * Patient taking differently: Take 500 mg by mouth twice da* SILDENAFIL 100 MG TABLET Take 1 tablet by mouth as nee* Problem List As Of Date 12/11/2018 Noted Resolved Golfer's elbow [M77.00] INVALID FOR* Hyperopia [H52.00] INVALID FOR* Pain in right elbow [M25.521] INVALID FOR* Right arm weakness [R29.898] INVALID FOR* Tennis elbow [M77.10] INVALID FOR* Encounter Status:Closed by SUHAIL CANAS RN on 12/11/18 [facility] HOSPon 12-11-2018 HOSP Patient:Rosa M Cornelius kelle Morfin JR MRN: Height:5' 7(1.702 m) Weight:142 lb (64.411 kg) Outpatient Medications as of 12/24/18: cyclobenzaprine (FLEXERIL) 5 mg tablet naproxen (NAPROSYN) 500 mg tablet sildenafil (VIAGRA) 100 mg tablet Admission/Clinic Administered Medications as of 12/24/18: lidocaine 10 mg/mL (1 %) 1-2 mg injection (XYLOCAINE) lactated ringers infusion Problem List: Golfer's elbow [M77.00] Hyperopia [H52.00] Pain in right elbow [M25.521] Right arm weakness [R29.898] Tennis elbow [M77.10] Allergies: No Known Allergies Date Verified:12/24/18 Lab Values No results within the last 30 days for the following basenames: K,HCT Progress Notes (LD SURGERY): Suhail Canas RN, RN 12/11/2018 8:42 AM Signed Patient requests to be scheduled at [facility] for colonoscopy. Offered 12/24/18, patient agreeable with date. Open Access questionnaire filled out by LIP. Patient has picked up prep. [facility] CNOVon 09-30-2018 CNOV Office Visit (AGINTMLW) ELPIDIO CORNELIUS ([id number]) 1965 M Date Time Provider Department 09/30/18 7:40 AM SUHAIL NIX (ACADEMY EDUCATION DIRECTOR) AGINTMLW During your visit today, we recorded the following information about you: Temperature Pulse Respiration Blood pressure 98 degrees 76/minute 18/minute 100/70 Weight Height 64.3 kg 1.702 m Suhail Nix APRN.BEN DENIS 09/30/2018 11:56 AM Signed Subjective HPI Elpidio Cornelius is 53 yo male here today with right lower back pain x 1 wk. States about a week ago it felt sore like he bumped it and then started having sharp stabbing pain x 2 days. States it was constant for several days but it is now only sore when he touches it. States movement did increase the pain. Rest helped improve pain. He did take naproxen 500 mg twice daily for 2 days. States it did help. Now patient reports pain only when he applies pressure to area or if roles onto his side. No pain currently with movement. Denies radiation of pain, injury, numbness or tingling, loss of bowel or bladder, or saddle anesthesia. Pt does report the week if started he was doing a job that required a lot of going up and down hill and pull motion. 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 Preventative: He is not up todate with his tetanus and is willing to have today. He has never had colonoscopy. He is willing to have completed. PAST MEDICAL HISTORY Diagnosis Date - NEGATIVE MEDICAL HISTORY PAST SURGICAL HISTORY Procedure Laterality Date - ELBOW RIGHT Right has had ozone injections on right elbow 10/22/16 and 10/08/16 - TONSILLECTOMY HX Family History Problem Relation Age of Onset - other (unknown) Other pt adopted Social History Socioeconomic History Marital status: Single Spouse name: Not on file Number of children: Not on file Years of education: Not on file Highest education level: Not on file Occupational History Not on file Social Needs Financial resource strain: Not on file Food insecurity: Worry: Not on file Inability: Not on file Transportation needs: Medical: Not on file Non-medical: Not on file Tobacco Use Smoking status: Former Smoker Quit date: 12/24/2017 Years since quittin.7 Smokeless tobacco: Current User Types: Chew Substance and Sexual Activity Alcohol use: No Drug use: No Sexual activity: Not on file Lifestyle Physical activity: Days per week: Not on file Minutes per session: Not on file Stress: Not on file Relationships Social connections: Talks on phone: Not on file Gets together: Not on file Attends yarsanism service: Not on file Active member of club or organization: Not on file Attends meetings of clubs or organizations: Not on file Relationship status: Not on file Intimate partner violence: Fear of current or ex partner: Not on file Emotionally abused: Not on file Physically abused: Not on file Forced sexual activity: Not on file Other Topics Concerns: Service: Not Asked Blood Transfusions: Not Asked Caffeine Concern: Yes Occupational Exposure: Not Asked Hobby Hazards: Not Asked Sleep Concern: Not Asked Stress Concern: Not Asked Weight Concern: Not Asked Special Diet: Not Asked Back Care: Not Asked Exercise: Not Asked Bike Helmet: Not Asked Seat Belt: Not Asked Self-Exams: Not Asked Social History Narrative Not on file Current Outpatient Medications on File Prior to Visit: naproxen (NAPROSYN) 500 mg tablet Take 1 tablet by mouth twice daily with meals. (Patient taking differently: Take 500 mg by mouth twice daily as needed. ) sildenafil (VIAGRA) 100 mg tablet Take 1 tablet by mouth as needed. No current facility-administered medications on file prior to visit. Review of Systems Constitutional: Negative for chills and fever. Respiratory: Negative for shortness of breath. Cardiovascular: Negative for chest pain and palpitations. Gastrointestinal: Negative. Genitourinary: Negative. Negative for dysuria, flank pain, frequency, hematuria and urgency. Musculoskeletal: Positive for back pain. Negative for falls, joint pain, myalgias and neck pain. Neurological: Negative for tingling, sensory change, focal weakness and weakness. 09/30/18 0738 BP: 100/70 BP Site: Right Arm BP Position: Sitting BP Cuff Size: Regular Adult Pulse: 76 Resp: 18 Temp: 36.7 ?C (98 ?F) TempSrc: Oral Weight: 64.3 kg (141 lb 12.8 oz) Height: 170.2 cm (5' 7) Objective Physical Exam Constitutional: He is oriented to person, place, and time and well-developed, well-nourished, and in no distress. No distress. Cardiovascular: Normal rate, regular rhythm and normal heart sounds. Pulmonary/Chest: Effort normal and breath sounds normal. Abdominal: Soft. Bowel sounds are normal. There is no CVA tenderness. Musculoskeletal: Right shoulder: He exhibits tenderness and spasm. He exhibits normal range of motion, no bony tenderness and no pain. Right hip: Normal. Thoracic back: Normal. Arms: Neurological: He is alert and oriented to person, place, and time. He has normal motor skills, normal strength and normal reflexes. He has a normal Straight Leg Raise Test. Gait normal. Gait normal. Ability to change positions normal Skin: Skin is warm and dry. No rash noted. He is not diaphoretic. No erythema. No pallor. Psychiatric: Mood, memory, affect and judgment normal. ASSESSMENT/PLAN: 1. Acute right-sided low back pain without sciatica - ICD9: 724.2, ICD10: M54.5 (primary diagnosis) Lumbosacral sprain - Bedrest for 2-3 days - Ice for localized tenderness - Warm moist heat for 20 min three times a day - NSAIDS- see orders - Muscle relaxant- see orders - CYCLOBENZAPRINE 5 MG TABLET 2. Screen for colon cancer - ICD9: V76.51, ICD10: Z12.11 - CONSULT TO SCREENING COLONOSCOPY 3. Need for Tdap vaccination - ICD9: V06.1, ICD10: Z23 - TDAP VACCINE AGE 7+ IM - Given today Suhail Nix, LASHONDA.BEN Nix APRN.BEN, BEN 09/30/2018 8:01 AM Addendum ASSESSMENT/PLAN: 1. Acute right-sided low back pain without sciatica - ICD9: 724.2, ICD10: M54.5 (primary diagnosis) Lumbosacral sprain - Bedrest for 2-3 days - Ice for localized tenderness - Warm moist heat for 20 min three times a day - NSAIDS- see orders - Muscle relaxant- see orders - CYCLOBENZAPRINE 5 MG TABLET 2. Screen for colon cancer - ICD9: V76.51, ICD10: Z12.11 - CONSULT TO SCREENING COLONOSCOPY 3. Need for Tdap vaccination - ICD9: V06.1, ICD10: Z23 - TDAP VACCINE AGE 7+ IM - Given today Suhail Nix APRN.ACADEMY EDUCATION DIRECTOR Patient information: Colonoscopy (The Basics) What is a colonoscopy? ? A colonoscopy is a test that looks at the inner lining of a person?s large intestine. The large intestine is also called the colon. Often, people have colonoscopy as a screening test to check for polyps or for cancer in the colon or rectum. Polyps are growths in the colon that might turn into cancer. If you have polyps, the doctor can usually take them out during the colonoscopy. Taking polyps out lowers your chances of getting cancer. People can also have colonoscopy if they have any of the symptoms listed below. Cancer screening tests are tests that are done to try and find cancer early, before a person has symptoms. Cancer that is found early often is small and can be cured or treated easily. Doctors can use 5 or 6 different tests to screen for colon cancer. But most doctors think that colonoscopy is the best test to screen for colon cancer. When should I have colon cancer screening? ? Doctors recommend that most people begin having colon cancer screening at age 50. Some people have an increased chance of getting colon cancer, because of a strong family history or certain medical conditions. These people might begin screening at a younger age. What are other reasons my doctor might order a colonoscopy? ? Your doctor might order a colonoscopy if you have: ?Blood in your bowel movements ?A change in your bowel habits ?A condition called anemia that can make you feel tired and weak ?Long-term belly or rectal pain that you cannot explain ?Abnormal results from a different type of colon test ?A history of colon cancer or polyps in your colon What should I do before a colonoscopy? ? Your doctor will give you instructions about what to do before a colonoscopy. He or she will tell you what foods you can and cannot eat. He or she will also tell you if you need to stop taking any of your usual medicines beforehand. Make sure to read the instructions as soon as you get them. You might have to stop some medicines up to a week before the test. The colon needs to be cleaned out before a colonoscopy. Your doctor will give you a special drink that causes watery diarrhea. It is important to drink all of it to make sure your colon is clean. If your colon is clean your doctor will get a better look at the inside lining of the colon. A clean colon also makes the test easier to do and more comfortable. Let your doctor know if you have trouble getting ready for your colonoscopy. What happens during a colonoscopy? ? Your doctor will give you medicine to make you feel relaxed. Then he or she will put a thin tube with a camera and light on the end into your anus and up into the rectum and colon . Your doctor will look at the inside lining of the whole colon. During the procedure, your doctor might do a test called a biopsy. During a biopsy, a doctor takes a small piece of tissue from the colon. Then he or she looks at the tissue under a microscope to see if it has cancer. Your doctor might also remove growths that he or she sees in the colon. You will not feel it if the doctor takes a biopsy or removes a growth. What happens after a colonoscopy? ? Your doctor will give you instructions about what to do after a colonoscopy. Most people can eat as usual. But most doctors recommend that people do not drive or go to work for the rest of the day. Your doctor will tell you when to start taking any medicines you had to stop before the test. When should I call my doctor or nurse? ? Call your doctor or nurse immediately if you have any of the following problems after your colonoscopy: ?Belly pain that is much worse than gas pain or cramps ?A bloated and hard belly ?Vomiting ?Fever ?A lot of bleeding from your anus Information obtained from [employer] Low Back Pain What is low back pain? Pain and stiffness in the lower back is a common condition. It is one of the most common reasons people miss work. In the center of your lower back are 5 bones in the spine called lumbar vertebrae. Muscles and ligaments help keep the vertebrae in their proper position. In between the vertebrae are gel-like shock absorbers called disks. Nerves that lead to the rest of the body pass through the bones of the back. What is the cause? You may have pain if any part of your back is injured, strained, or affected by illness. The most common causes of back pain include: Frequent lifting or carrying of heavy objects Spending a lot of time sitting or standing in one position or bending over Being overweight Less common causes of back pain include: A disk that bulges or is pushed out of place by injury or a severe strain. A bulging (herniated) disk can pinch the nerves that pass through the bones, leading to pain in the legs. Injuries caused by a fall, unusually strenuous exercise, or even violent sneezing or coughing Swelling and irritation from an infection or an immune system problem A congenital condition (a problem that you were born with) A degenerative condition (a problem that causes the bones, joints, disks, or muscles to break down, like arthritis) What are the symptoms? Symptoms include: Pain in the back or legs Tingling or numbness in the legs or feet Stiffness, spasms, or limited motion The pain may be constant or may happen only in certain positions. It may get worse when you cough, sneeze, bend, twist, or strain during a bowel movement. The pain may be in only one spot or it may spread to other areas, most commonly down the buttocks and into the back of the thigh. How is it diagnosed? Your healthcare provider will review your medical history and examine you. The exam may include different types of X-rays to look at the bones and soft tissue of your back. How is it treated? The treatment for low back pain depends on the cause. Your healthcare provider may recommend: Rest. It's best to try to stay active, so try not to rest in bed longer than 1 to 2 days or the time your provider recommends. Exercise. Your provider may recommend physical therapy or exercises that you can do at home. Medicine. Several types of medicines may help lessen back pain. Take all medicine as recommended by your healthcare provider. Surgery. Depending on the cause of your back pain and if you keep having symptoms, you may need to have surgery. However, most common causes of back pain don?t need surgery. How can I take care of myself? To help relieve pain: Put an ice pack, gel pack, or package of frozen vegetables, wrapped in a cloth on the painful area every 3 to 4 hours for up to 20 minutes at a time. Take an anti-inflammatory medicine, such as ibuprofen, or other medicine as directed by your healthcare provider. Nonsteroidal anti-inflammatory medicines (NSAIDs), such as ibuprofen, may cause stomach bleeding and other problems. These risks increase with age. Read the label and take as directed. Unless recommended by your healthcare provider, do not take for more than 10 days. Put a hot water bottle or electric heating pad on your back. Cover the hot water bottle with a towel or set the heating pad on low so you don?t burn your skin. Try putting moist heat on the injured area for 10 to 15 minutes at a time before you do warm-up and stretching exercises. Moist heat may help relax your muscles and make it easier to move your body. Moist heat includes heat patches or moist heating pads that you can purchase at most drugstores, a wet washcloth or towel that has been heated in the dryer, or a hot shower. Don?t use heat if you have swelling. Get a back massage by someone trained in giving massages. Talk with a counselor if your back pain is related to tension caused by emotional problems. Pain is the best way to juvenile court judge the pace you should set for increasing your activity and exercise. Minor discomfort, stiffness, soreness, and mild aches don?t need to limit your activity. Ask your healthcare provider: How and when you will hear your test results How long it will take to recover from this condition What activities you should avoid and when you can return to your normal activities How to take care of yourself at home What symptoms or problems you should watch for and what to do if you have them Make sure you know when you should come back for a checkup. How can I help prevent low back pain? Here are some of the things you can do so there is less strain on your back: Keep your abdominal and back muscles strong. Get some exercise every day and include stretching and warm-up exercises suggested by your provider or physical therapist. Exercising regularly will not only help your back. It will also help keep you healthier overall. Practice good posture. Stand with your head up, shoulders straight, chest forward, weight balanced evenly on both feet, and pelvis tucked in. Whenever you sit, sit in a straight-backed chair and hold your spine against the back of the chair. Use a footrest for one foot when you stand or sit in one spot for a long time. This keeps your back straight. Protect your back. When you need to move a heavy object, don't face the object and push with your arms. Turn around and use your back to push backwards so the strain is taken by your legs. When you lift a heavy object, bend your knees and hips and keep your back straight. If you do a lot of heavy lifting, wear a belt designed to support your back. Avoid lifting heavy objects higher than your waist. Carry packages close to your body, with your arms bent. Lie on your side with your knees bent when you sleep or rest. It may help to put a pillow between your knees. Put a pillow under your knees when you sleep on your back. You may need to stop sleeping on your stomach. Lose weight if you are overweight. Developed by [employer]. Adult Advisor 2014.1 published by [employer]. Last modified: 2011-11-16 Last reviewed: 2011-09-09 This content is reviewed periodically and is subject to change as new health information becomes available. The information is intended to inform and educate and is not a replacement for medical evaluation, advice, diagnosis or treatment by a healthcare professional. References Adult Advisor 2013.1 Index Copyright ?2014 [employer] and/or one of its subsidiaries. All rights reserved. Low Back Pain Exercises Exercises that stretch and strengthen the muscles of your abdomen and spine can help prevent back problems. Strong back and abdominal muscles help you keep good posture, with your spine in its correct position. If your muscles are tight, take a warm shower or bath before doing the exercises. Exercise on a rug or mat. Wear loose clothing. Don?t wear shoes. Stop doing any exercise that causes pain until you have talked with your healthcare provider. Ask your provider or physical therapist to help you develop an exercise program. Ask your provider how many times a week you need to do the exercises. Remember to start slowly. Exercises These exercises are intended only as suggestions. Be sure to check with your provider before starting the exercises. Standing hamstring stretch: Put the heel of one leg on a stool about 15 inches high. Keep your leg straight. Lean forward, bending at the hips until you feel a mild stretch in the back of your thigh. Make sure you do not roll your shoulders or bend at the waist when doing this. You want to stretch your leg, not your lower back. Hold the stretch for 15 to 30 seconds. Repeat with each leg 3 times. Cat and camel: Get down on your hands and knees. Let your stomach sag, allowing your back to curve downward. Hold this position for 5 seconds. Then arch your back and hold for 5 seconds. Do 2 sets of 15. Quadruped arm and leg raise: Get down on your hands and knees. Pull in your belly button and tighten your abdominal muscles to stiffen your spine. While keeping your abdominals tight, raise one arm and the opposite leg away from you. Hold this position for 5 seconds. Lower your arm and leg slowly and change sides. Do this 10 times on each side. Pelvic tilt: Lie on your back with your knees bent and your feet flat on the floor. Pull your belly button in towards your spine and push your lower back into the floor, flattening your back. Hold this position for 15 seconds, then relax. Repeat 5 to 10 times. Partial curl: Lie on your back with your knees bent and your feet flat on the floor. Draw in your abdomen and tighten your stomach muscles. With your hands stretched out in front of you, curl your upper body forward until your shoulders clear the floor. Hold this position for 3 seconds. Don't hold your breath. It helps to breathe out as you lift your shoulders. Relax back to the floor. Repeat 10 times. Build to 2 sets of 15. To challenge yourself, clasp your hands behind your head and keep your elbows out to your sides. Gluteal stretch: Lie on your back with both knees bent. Rest your right ankle over the knee of your left leg. Grasp the thigh of the left leg and pull toward your chest. You will feel a stretch along the buttocks and possibly along the outside of your hip. Hold the stretch for 15 to 30 seconds. Then repeat the exercise with your left ankle over your right knee. Do the exercise 3 times with each leg. Extension exercise 1. Lie face down on the floor for 5 minutes. If this hurts too much, lie face down with a pillow under your stomach. This should relieve your leg or back pain. When you can lie on your stomach for 5 minutes without a pillow, you can continue with Part B of this exercise. 2. After lying on your stomach for 5 minutes, prop yourself up on your elbows for another 5 minutes. If you can do this without having more leg or buttock pain, you can start doing part C of this exercise. 3. Lie on your stomach with your hands under your shoulders. Then press down on your hands and extend your elbows while keeping your hips flat on the floor. Hold for 1 second and lower yourself to the floor. Do 3 to 5 sets of 10 repetitions. Rest for 1 minute between sets. You should have no pain in your legs when you do this, but it is normal to feel some pain in your lower back. Do this exercise several times a day. Side plank: Lie on your side with your legs, hips, and shoulders in a straight line. Prop yourself up onto your forearm with your elbow directly under your shoulder. Lift your hips off the floor and balance on your forearm and the outside of your foot. Try to hold this position for 15 seconds and then slowly lower your hip to the ground. Switch sides and repeat. Work up to holding for 1 minute. This exercise can be made easier by starting with your knees and hips flexed toward your chest. Exercises to avoid It?s best to avoid the following exercises because they strain the lower back: Exercises in which you lie on your back and raise and lower both legs together Full sit-ups or sit-ups with straight legs Hip twists Sports and other activities In addition to strengthening your back muscles, it?s helpful to keep your entire body in shape. Good activities for people with back problems include: Walking Bicycling Swimming Cross-country skiing Yoga Major Chi Pilates Some sports can hurt your back because of rough contact, twisting, sudden impact, or direct stress on your back. Sports that may be dangerous to your back include: Football Soccer Volleyball Handball Golf Weight lifting Trampoline Tobogganing Sledding Snowmobiling Snowboarding Ice hockey Developed by [employer]. Adult Advisor 2013.1 published by [employer]. Last modified: 2013-03-11 Last reviewed: 2011-06-06 This content is reviewed periodically and is subject to change as new health information becomes available. The information is intended to inform and educate and is not a replacement for medical evaluation, advice, diagnosis or treatment by a healthcare professional. References Adult Advisor 2013.1 Index Copyright ?2014 [employer] and/or one of its subsidiaries. All rights reserved. Health Information For Patients and the Community How to Prepare for Your Colonoscopy Using Golytely, Nulytely, Trilyte or Colyte Preparations IMPORTANT - Please Read These Instructions at Least 2 Weeks Before Your Colonoscopy [place] Instructions: ?Your bowel must be empty so that your doctor can clearly view your colon. Follow all of the instructions in this handout EXACTLY as they are written. If you do NOT follow the directions for when to start drinking the bowel preparation (see next page), your colonoscopy WILL be cancelled. ?Do NOT eat any solid food the ENTIRE day before your colonoscopy. ?Buy your bowel preparation at least 5 days before your colonoscopy. ?Do NOT mix the solution until the day before your colonoscopy. Designated Airplane Pilot Photogrammetry on the Day of Your Exam A responsible family member or friend MUST come with you to your colonoscopy and REMAIN in the endoscopy area until you are discharged! You are NOT ALLOWED to drive, take a taxi or bus, or leave the Endoscopy Center ALONE. If you do not have a responsible wedding transportation driver (family member or friend) with you to take you home, your exam cannot be done with sedation and will be cancelled. Medications Some of the medicines you take may need to be stopped or adjusted before your colonoscopy. You MUST call the doctor who ordered any of the following medicines at least 2 weeks before your colonoscopy. ?Blood thinners -- such as Coumadin? (warfarin), Plavix? (clopidogrel), Ticlid? (ticlopidine hydrochloride), Agrylin? (anagrelide), Xarelto? (Rivaroxaban), Pradaxa? (Dabigatran), Eliquis? (Apixaban), and Effient? (Prasugrel). ?Insulin or diabetes pills. Please call the doctor that monitors your glucose levels. Your insulin dosage may need to be adjusted due to the diet restrictions required with this bowel preparation. (Please bring your diabetes medicines with you on the day of your procedure.) If you take aspirin, take it and ALL other medications prescribed by your doctor. On the day of your colonoscopy, take your medications with a sip of water. Revised 03/2016 1 Five (5) Days Before Your Colonoscopy ?Do NOT take medicines that stop diarrhea -- such as Imodium?, Kaopectate?, or Pepto Bismol?. ?Do NOT take fiber supplements -- such as Metamucil?, Citrucel?, or Perdiem?. ?Do NOT take products that contain iron -- such as multi-vitamins -- (the label lists what is in the products). ?Do NOT take vitamin E. Buy the prescription bowel preparation solution at your local pharmacy or drugstore pharmacy. Three (3) Days Before Your Colonoscopy Do NOT eat high-fiber foods -- such as popcorn, beans, seeds (flax, sunflower, quinoa), multigrain bread, nuts, salad/vegetables, or fresh and dried fruit. One (1) Day Before Your Colonoscopy Only drink clear liquids the ENTIRE DAY before your colonoscopy. Do NOT eat any solid foods. Drink at least 8 ounces of clear liquids every hour after waking up. The clear liquids you can drink include: ?water, apple, or white grape juice; broth; coffee or tea (without milk or creamer); clear carbonated beverages such as jonathon ty or lemon-nenana soda; Gatorade? or other sports drinks (not red); Panda-Aid? or other flavored drinks (not red). You may eat plain jello or other gelatins (not red) or popsicles (not red). Do NOT drink alcohol on the day before or the day of the procedure. 2 Revised 03/2016 When to Mix and Drink Your Bowel Prep Follow the instructions on the label. After mixing, place the solution in the refrigerator for a couple of hours before drinking. You may add the flavor packet that came with the bowel preparation. DO NOT add ice, sugar or any flavorings to the solution. Evening Before Your Colonoscopy ?Start drinking the bowel preparation at 6 PM the evening before your colonoscopy. Drink an 8-oz glass of bowel preparation every 10 minutes. You must finish drinking the solution by 9 PM the night before your scheduled procedure. ?You may continue to drink clear liquids only until midnight. Do NOT eat or drink ANYTHING after midnight the night before your procedure or your procedure may be cancelled. This is for your safety and will reduce the risk of having any food or liquid in your stomach move into your lungs (aspiration) during a procedure. If you take aspirin, take it and ALL other prescribed medicines with a sip of water on the day of your colonoscopy. Contact Information: If you are unable to keep your appointment or have any questions about the instructions, please call the facility where the procedure is being performed. Call between the hours of 8:00 AM and 4:00 PM. If you are calling after 4:00 PM, please leave a message of the best time to reach you. Someone will return your call the next business day. [facility] [address] [place] [id number] Colonoscopy Procedure Overview Please Read Prior to the Procedure What is a Colonoscopy A colonoscopy is an outpatient procedure in which the inside of the large intestine (colon and rectum) is examined. A colonoscopy is commonly used to evaluate gastrointestinal symptoms, such as rectal and intestinal bleeding, abdominal pain, or changes in bowel habits. Colonoscopies are also performed in individuals without symptoms to check for colorectal polyps or cancer. A screening colonoscopy is recommended for anyone 50 years of age and older, and for anyone with parents, siblings or children with a history of colorectal cancer or polyps. What Happens Before a Colonoscopy To have a successful colonoscopy, your bowel must be empty so that your physician can clearly view the colon. To do this, it is very important to read and follow all of the instructions given to you at least 2 weeks BEFORE your exam. If your bowel is not empty, your colonoscopy will not be successful and may have to be repeated. If you feel nauseated or vomit while taking the bowel preparation, wait 30 minutes before drinking more fluid and start with small sips of solution. Some activity (such as walking) or a few soda crackers may help decrease the nausea you are feeling. If the nausea persists, please contact nurse debt collection specialist at [phone]. You may experience skin irritation around the anus due to the passage of liquid stools. To prevent and treat skin irritation, you should: ?Apply Vaseline? or Desitin? ointment to the skin around the anus before drinking the bowel preparation medications. These products can be purchased at any drugstore. ?Wipe the skin after each bowel movement with disposable wet wipes instead of toilet paper. These are found in the toilet paper area of the store. ?Sit in a bathtub filled with warm water for 10 to 15 minutes after you finish passing a stool; after soaking, blot the skin dry with a soft cloth, apply Vaseline? or Desitin? ointment to the anal area, and place a cotton ball just outside your anus to absorb leaking fluid. What Happens During a Colonoscopy During a colonoscopy, an experienced physician uses a colonoscope (a long, flexible instrument about 1/2 inch in diameter) to view the lining of the colon. The colonoscope is inserted into the rectum and advanced through the large intestine. If necessary during a colonoscopy, small amounts of tissue can be removed for analysis (a biopsy) and polyps can be identified and entirely removed. In many cases, a colonoscopy allows accurate diagnosis and treatment of colorectal problems without the need for a major operation. Revised 03/2016 5 ?You are asked to wear a hospital gown and an IV will be started. ?You are given a pain reliever and a sedative intravenously (in your vein). You will feel relaxed and somewhat drowsy. ?You will lie on your left side, with your knees drawn up towards your chest. ?A small amount of air is used to expand the colon so the physician can see the colon alegre. ?You may feel mild cramping during the procedure. Cramping can be reduced by taking slow, deep breaths. ?The colonoscope is slowly withdrawn while the lining of your bowel is carefully examined. ?The procedure lasts from 30 minutes to 1 hour. What Happens After a Colonoscopy ?You will stay in a recovery room for observation until you are ready for discharge. ?You may feel some cramping or a sensation of having gas, but this quickly passes. ?If sedation has been given, a responsible family member or friend must drive you home. ?Avoid alcohol, driving, and operating machinery for 24 hours following the procedure. ?Unless otherwise instructed, you may immediately return to your normal diet. We recommend you wait until the day after your procedure to resume normal activities. ?If polyps were removed or a biopsy was taken, the physician performing your colonoscopy will tell you when it is safe to resume taking your blood thinners. ?If a biopsy was taken or a polyp was removed, you may notice a little amount of rectal bleeding for 1 to 2 days after the procedure. If you have a large amount of rectal bleeding, high or persistent fevers, or severe abdominal pain within the next 2 weeks, please go to your local emergency room and call the physician who performed your exam. 6 Revised 03/2016 ?Copyright 3636-2986 [facility]. All rights reserved. Revised 03/2016 Dona Garcia CMA 09/30/2018 11:56 AM Signed OPEN ACCESS QUESTIONNAIRE 1. Are you or could you be ? No 2. Are you currently having any stomach/gastrointesti nal issues at this time such as constipation, diarrhea, abdominal pain, rectal bleeding etc? No 3. Do you have an implanted device such as a defibrillator, pacemaker, Cardiac Stent or deep brain stimulation device? No 4. Do you have any new or past cardiac (heart) or pulmonary (lung) issues? No 5. Is the patient's BMI 40 or greater? No:Body mass index is 22.21 kg/m?.. Last Wt 09/30/18 : 64.3 kg (141 lb 12.8 oz) Last Ht 09/30/18 : 170.2 cm (5' 7) 6. Have you had difficulty with prior sedations or complications with other procedures? No 7. Have you had difficulty with anesthesia previously re: ? Difficult intubation? No ? Other difficulty or allergic reaction to anesthesia other than post op N/V? No 8. Do you currently use oxygen or a breathing machine at night? No 9. Do you take any narcotics, depression or anti-Anxiety medications or 3 or more prescription drugs on a daily basis? No 10. Do you use any illegal or recreational drugs? No 11. Have you been hospitalized in the past 6 weeks? No 12. Are you on dialysis or have Chronic Kidney Disease? No 13. Have you been diagnosed with chronic liver disease such as hepatitis or cirrhosis? No 14. Do you have a seizure disorder? No 15. Do you have difficulty swallowing? No 16. Do you have ulcerative colitis or Crohn's disease? No 17. Do you take any Blood thinners, including Aspirin or fish oil? No 18. Do you have any blood disorders (re:hemophiliac)? No 19. Are you Diabetic? No 20. Any other important health information we should be made aware of prior to your colonoscopy? No 21. Any alcohol use: No. To be completed by LIP: Patient appropriate for Open Access Colonoscopy: Yes: appropriate for Open Access Procedure Checklist: Prior to closing the encounter: ? Complete questionnaire: Yes ? Have you chosen Prep order and has it been Ordered/Pended: Yes. ? Patient's procedure could be delayed if not given the script for the prep. Please ensure the prep is escripted to pharmacy or printed. Instructions for the prep will print upon filing or pending this smartset. ? Please send all open access questionnaires to [facility] Sched Pool #[id number] Referring Provider: SELF [[id number]] Allergies As of Date: 09/30/2018 (No Known Allergies) Date Reviewed: 09/30/2018 Reviewed by: Suhail Doran (Air Control Electronics Operator) Boyd, ACADEMY EDUCATION DIRECTOR - Fully Assessed Reason for Visit: Flank Pain [356] Primary Visit Diagnosis:Acute right-sided low back pain without sciatica [M54.5] Other Visit Diagnoses:Screen for colon cancer [Z12.11] Need for Tdap vaccination [Z23] Special screening for malignant neoplasms, colon [Z12.11] Order(s):cyclobenzapr ine (FLEXERIL) 5 mg tabletTake 1 tablet by mouth three times daily as needed.Disp: 15 tabletRfl: 0 CONSULT TO SCREENING COLONOSCOPY [[id number]] Order #: [id number]: 1 peg 3350-electrolytes (COLYTE) 240-22.72-6.72 -5.84 gram solutionTake 4,000 mL by mouth one time only for 1 dose.Disp: 4000 mLRfl: 0 COLONOSCOPY SCRN NOT HIGH RISK [[id number]] Order #: [id number] FUTURE TDAP VACCINE AGE 7+ IM [[id number]] Order #: [id number] IMADM PRQ ID SUBQ/IM NJXS 1 VACC [[id number]] Order #: [id number] Prescriptions as of 09/30/2018 Sig: NAPROXEN 500 MG TABLET Take 1 tablet by mouth twice * Patient taking differently: Take 500 mg by mouth twice da* SILDENAFIL 100 MG TABLET Take 1 tablet by mouth as nee* CYCLOBENZAPRINE 5 MG TABLET Take 1 tablet by mouth three * PEG [id number] [id number] GRAM-ELECTROLYTE* Take 4,000 mL by mouth one ti* Problem List As Of Date 09/30/2018 Noted Resolved Golfer's elbow [M77.00] INVALID FOR* Hyperopia [H52.00] INVALID FOR* Pain in right elbow [M25.521] INVALID FOR* Right arm weakness [R29.898] INVALID FOR* Tennis elbow [M77.10] INVALID FOR* Other instructions from your clinician: ASSESSMENT/PLAN: 1. Acute right-sided low back pain without sciatica - ICD9: 724.2, ICD10: M54.5 (primary diagnosis) Lumbosacral sprain - Bedrest for 2-3 days - Ice for localized tenderness - Warm moist heat for 20 min three times a day - NSAIDS- see orders - Muscle relaxant- see orders - CYCLOBENZAPRINE 5 MG TABLET 2. Screen for colon cancer - ICD9: V76.51, ICD10: Z12.11 - CONSULT TO SCREENING COLONOSCOPY 3. Need for Tdap vaccination - ICD9: V06.1, ICD10: Z23 - TDAP VACCINE AGE 7+ IM - Given today Suhail Nix APRN.ACADEMY EDUCATION DIRECTOR Patient information: Colonoscopy (The Basics) What is a colonoscopy? ? A colonoscopy is a test that looks at the inner lining of a person?s large intestine. The large intestine is also called the colon. Often, people have colonoscopy as a screening test to check for polyps or for cancer in the colon or rectum. Polyps are growths in the colon that might turn into cancer. If you have polyps, the doctor can usually take them out during the colonoscopy. Taking polyps out lowers your chances of getting cancer. People can also have colonoscopy if they have any of the symptoms listed below. Cancer screening tests are tests that are done to try and find cancer early, before a person has symptoms. Cancer that is found early often is small and can be cured or treated easily. Doctors can use 5 or 6 different tests to screen for colon cancer. But most doctors think that colonoscopy is the best test to screen for colon cancer. When should I have colon cancer screening? ? Doctors recommend that most people begin having colon cancer screening at age 50. Some people have an increased chance of getting colon cancer, because of a strong family history or certain medical conditions. These people might begin screening at a younger age. What are other reasons my doctor might order a colonoscopy? ? Your doctor might order a colonoscopy if you have: ?Blood in your bowel movements ?A change in your bowel habits ?A condition called anemia that can make you feel tired and weak ?Long-term belly or rectal pain that you cannot explain ?Abnormal results from a different type of colon test ?A history of colon cancer or polyps in your colon What should I do before a colonoscopy? ? Your doctor will give you instructions about what to do before a colonoscopy. He or she will tell you what foods you can and cannot eat. He or she will also tell you if you need to stop taking any of your usual medicines beforehand. Make sure to read the instructions as soon as you get them. You might have to stop some medicines up to a week before the test. The colon needs to be cleaned out before a colonoscopy. Your doctor will give you a special drink that causes watery diarrhea. It is important to drink all of it to make sure your colon is clean. If your colon is clean your doctor will get a better look at the inside lining of the colon. A clean colon also makes the test easier to do and more comfortable. Let your doctor know if you have trouble getting ready for your colonoscopy. What happens during a colonoscopy? ? Your doctor will give you medicine to make you feel relaxed. Then he or she will put a thin tube with a camera and light on the end into your anus and up into the rectum and colon . Your doctor will look at the inside lining of the whole colon. During the procedure, your doctor might do a test called a biopsy. During a biopsy, a doctor takes a small piece of tissue from the colon. Then he or she looks at the tissue under a microscope to see if it has cancer. Your doctor might also remove growths that he or she sees in the colon. You will not feel it if the doctor takes a biopsy or removes a growth. What happens after a colonoscopy? ? Your doctor will give you instructions about what to do after a colonoscopy. Most people can eat as usual. But most doctors recommend that people do not drive or go to work for the rest of the day. Your doctor will tell you when to start taking any medicines you had to stop before the test. When should I call my doctor or nurse? ? Call your doctor or nurse immediately if you have any of the following problems after your colonoscopy: ?Belly pain that is much worse than gas pain or cramps ?A bloated and hard belly ?Vomiting ?Fever ?A lot of bleeding from your anus Information obtained from [employer] Low Back Pain What is low back pain? Pain and stiffness in the lower back is a common condition. It is one of the most common reasons people miss work. In the center of your lower back are 5 bones in the spine called lumbar vertebrae. Muscles and ligaments help keep the vertebrae in their proper position. In between the vertebrae are gel-like shock absorbers called disks. Nerves that lead to the rest of the body pass through the bones of the back. What is the cause? You may have pain if any part of your back is injured, strained, or affected by illness. The most common causes of back pain include: Frequent lifting or carrying of heavy objects Spending a lot of time sitting or standing in one position or bending over Being overweight Less common causes of back pain include: A disk that bulges or is pushed out of place by injury or a severe strain. A bulging (herniated) disk can pinch the nerves that pass through the bones, leading to pain in the legs. Injuries caused by a fall, unusually strenuous exercise, or even violent sneezing or coughing Swelling and irritation from an infection or an immune system problem A congenital condition (a problem that you were born with) A degenerative condition (a problem that causes the bones, joints, disks, or muscles to break down, like arthritis) What are the symptoms? Symptoms include: Pain in the back or legs Tingling or numbness in the legs or feet Stiffness, spasms, or limited motion The pain may be constant or may happen only in certain positions. It may get worse when you cough, sneeze, bend, twist, or strain during a bowel movement. The pain may be in only one spot or it may spread to other areas, most commonly down the buttocks and into the back of the thigh. How is it diagnosed? Your healthcare provider will review your medical history and examine you. The exam may include different types of X-rays to look at the bones and soft tissue of your back. How is it treated? The treatment for low back pain depends on the cause. Your healthcare provider may recommend: Rest. It's best to try to stay active, so try not to rest in bed longer than 1 to 2 days or the time your provider recommends. Exercise. Your provider may recommend physical therapy or exercises that you can do at home. Medicine. Several types of medicines may help lessen back pain. Take all medicine as recommended by your healthcare provider. Surgery. Depending on the cause of your back pain and if you keep having symptoms, you may need to have surgery. However, most common causes of back pain don?t need surgery. How can I take care of myself? To help relieve pain: Put an ice pack, gel pack, or package of frozen vegetables, wrapped in a cloth on the painful area every 3 to 4 hours for up to 20 minutes at a time. Take an anti-inflammatory medicine, such as ibuprofen, or other medicine as directed by your healthcare provider. Nonsteroidal anti-inflammatory medicines (NSAIDs), such as ibuprofen, may cause stomach bleeding and other problems. These risks increase with age. Read the label and take as directed. Unless recommended by your healthcare provider, do not take for more than 10 days. Put a hot water bottle or electric heating pad on your back. Cover the hot water bottle with a towel or set the heating pad on low so you don?t burn your skin. Try putting moist heat on the injured area for 10 to 15 minutes at a time before you do warm-up and stretching exercises. Moist heat may help relax your muscles and make it easier to move your body. Moist heat includes heat patches or moist heating pads that you can purchase at most drugstores, a wet washcloth or towel that has been heated in the dryer, or a hot shower. Don?t use heat if you have swelling. Get a back massage by someone trained in giving massages. Talk with a counselor if your back pain is related to tension caused by emotional problems. Pain is the best way to juvenile court judge the pace you should set for increasing your activity and exercise. Minor discomfort, stiffness, soreness, and mild aches don?t need to limit your activity. Ask your healthcare provider: How and when you will hear your test results How long it will take to recover from this condition What activities you should avoid and when you can return to your normal activities How to take care of yourself at home What symptoms or problems you should watch for and what to do if you have them Make sure you know when you should come back for a checkup. How can I help prevent low back pain? Here are some of the things you can do so there is less strain on your back: Keep your abdominal and back muscles strong. Get some exercise every day and include stretching and warm-up exercises suggested by your provider or physical therapist. Exercising regularly will not only help your back. It will also help keep you healthier overall. Practice good posture. Stand with your head up, shoulders straight, chest forward, weight balanced evenly on both feet, and pelvis tucked in. Whenever you sit, sit in a straight-backed chair and hold your spine against the back of the chair. Use a footrest for one foot when you stand or sit in one spot for a long time. This keeps your back straight. Protect your back. When you need to move a heavy object, don't face the object and push with your arms. Turn around and use your back to push backwards so the strain is taken by your legs. When you lift a heavy object, bend your knees and hips and keep your back straight. If you do a lot of heavy lifting, wear a belt designed to support your back. Avoid lifting heavy objects higher than your waist. Carry packages close to your body, with your arms bent. Lie on your side with your knees bent when you sleep or rest. It may help to put a pillow between your knees. Put a pillow under your knees when you sleep on your back. You may need to stop sleeping on your stomach. Lose weight if you are overweight. Developed by [employer]. Adult Advisor 2014.1 published by [employer]. Last modified: 2011-11-16 Last reviewed: 2011-09-09 This content is reviewed periodically and is subject to change as new health information becomes available. The information is intended to inform and educate and is not a replacement for medical evaluation, advice, diagnosis or treatment by a healthcare professional. References Adult Advisor 2013.1 Index Copyright ?2013 [employer] and/or one of its subsidiaries. All rights reserved. Low Back Pain Exercises Exercises that stretch and strengthen the muscles of your abdomen and spine can help prevent back problems. Strong back and abdominal muscles help you keep good posture, with your spine in its correct position. If your muscles are tight, take a warm shower or bath before doing the exercises. Exercise on a rug or mat. Wear loose clothing. Don?t wear shoes. Stop doing any exercise that causes pain until you have talked with your healthcare provider. Ask your provider or physical therapist to help you develop an exercise program. Ask your provider how many times a week you need to do the exercises. Remember to start slowly. Exercises These exercises are intended only as suggestions. Be sure to check with your provider before starting the exercises. Standing hamstring stretch: Put the heel of one leg on a stool about 15 inches high. Keep your leg straight. Lean forward, bending at the hips until you feel a mild stretch in the back of your thigh. Make sure you do not roll your shoulders or bend at the waist when doing this. You want to stretch your leg, not your lower back. Hold the stretch for 15 to 30 seconds. Repeat with each leg 3 times. Cat and camel: Get down on your hands and knees. Let your stomach sag, allowing your back to curve downward. Hold this position for 5 seconds. Then arch your back and hold for 5 seconds. Do 2 sets of 15. Quadruped arm and leg raise: Get down on your hands and knees. Pull in your belly button and tighten your abdominal muscles to stiffen your spine. While keeping your abdominals tight, raise one arm and the opposite leg away from you. Hold this position for 5 seconds. Lower your arm and leg slowly and change sides. Do this 10 times on each side. Pelvic tilt: Lie on your back with your knees bent and your feet flat on the floor. Pull your belly button in towards your spine and push your lower back into the floor, flattening your back. Hold this position for 15 seconds, then relax. Repeat 5 to 10 times. Partial curl: Lie on your back with your knees bent and your feet flat on the floor. Draw in your abdomen and tighten your stomach muscles. With your hands stretched out in front of you, curl your upper body forward until your shoulders clear the floor. Hold this position for 3 seconds. Don't hold your breath. It helps to breathe out as you lift your shoulders. Relax back to the floor. Repeat 10 times. Build to 2 sets of 15. To challenge yourself, clasp your hands behind your head and keep your elbows out to your sides. Gluteal stretch: Lie on your back with both knees bent. Rest your right ankle over the knee of your left leg. Grasp the thigh of the left leg and pull toward your chest. You will feel a stretch along the buttocks and possibly along the outside of your hip. Hold the stretch for 15 to 30 seconds. Then repeat the exercise with your left ankle over your right knee. Do the exercise 3 times with each leg. Extension exercise 1. Lie face down on the floor for 5 minutes. If this hurts too much, lie face down with a pillow under your stomach. This should relieve your leg or back pain. When you can lie on your stomach for 5 minutes without a pillow, you can continue with Part B of this exercise. 2. After lying on your stomach for 5 minutes, prop yourself up on your elbows for another 5 minutes. If you can do this without having more leg or buttock pain, you can start doing part C of this exercise. 3. Lie on your stomach with your hands under your shoulders. Then press down on your hands and extend your elbows while keeping your hips flat on the floor. Hold for 1 second and lower yourself to the floor. Do 3 to 5 sets of 10 repetitions. Rest for 1 minute between sets. You should have no pain in your legs when you do this, but it is normal to feel some pain in your lower back. Do this exercise several times a day. Side plank: Lie on your side with your legs, hips, and shoulders in a straight line. Prop yourself up onto your forearm with your elbow directly under your shoulder. Lift your hips off the floor and balance on your forearm and the outside of your foot. Try to hold this position for 15 seconds and then slowly lower your hip to the ground. Switch sides and repeat. Work up to holding for 1 minute. This exercise can be made easier by starting with your knees and hips flexed toward your chest. Exercises to avoid It?s best to avoid the following exercises because they strain the lower back: Exercises in which you lie on your back and raise and lower both legs together Full sit-ups or sit-ups with straight legs Hip twists Sports and other activities In addition to strengthening your back muscles, it?s helpful to keep your entire body in shape. Good activities for people with back problems include: Walking Bicycling Swimming Cross-country skiing Yoga Major Chi Pilates Some sports can hurt your back because of rough contact, twisting, sudden impact, or direct stress on your back. Sports that may be dangerous to your back include: Football Soccer Volleyball Handball Golf Weight lifting Trampoline Tobogganing Sledding Snowmobiling Snowboarding Ice hockey Developed by [employer]. Adult Advisor 2013.1 published by [employer]. Last modified: 2013-03-11 Last reviewed: 2011-06-06 This content is reviewed periodically and is subject to change as new health information becomes available. The information is intended to inform and educate and is not a replacement for medical evaluation, advice, diagnosis or treatment by a healthcare professional. References Adult Advisor 2013.1 Index Copyright ?2014 [employer] and/or one of its subsidiaries. All rights reserved. Health Information For Patients and the Community How to Prepare for Your Colonoscopy Using Golytely, Nulytely, Trilyte or Colyte Preparations IMPORTANT - Please Read These Instructions at Least 2 Weeks Before Your Colonoscopy [place] Instructions: ?Your bowel must be empty so that your doctor can clearly view your colon. Follow all of the instructions in this handout EXACTLY as they are written. If you do NOT follow the directions for when to start drinking the bowel preparation (see next page), your colonoscopy WILL be cancelled. ?Do NOT eat any solid food the ENTIRE day before your colonoscopy. ?Buy your bowel preparation at least 5 days before your colonoscopy. ?Do NOT mix the solution until the day before your colonoscopy. Designated Airplane Pilot Photogrammetry on the Day of Your Exam A responsible family member or friend MUST come with you to your colonoscopy and REMAIN in the endoscopy area until you are discharged! You are NOT ALLOWED to drive, take a taxi or bus, or leave the Endoscopy Center ALONE. If you do not have a responsible wedding transportation driver (family member or friend) with you to take you home, your exam cannot be done with sedation and will be cancelled. Medications Some of the medicines you take may need to be stopped or adjusted before your colonoscopy. You MUST call the doctor who ordered any of the following medicines at least 2 weeks before your colonoscopy. ?Blood thinners -- such as Coumadin? (warfarin), Plavix? (clopidogrel), Ticlid? (ticlopidine hydrochloride), Agrylin? (anagrelide), Xarelto? (Rivaroxaban), Pradaxa? (Dabigatran), Eliquis? (Apixaban), and Effient? (Prasugrel). ?Insulin or diabetes pills. Please call the doctor that monitors your glucose levels. Your insulin dosage may need to be adjusted due to the diet restrictions required with this bowel preparation. (Please bring your diabetes medicines with you on the day of your procedure.) If you take aspirin, take it and ALL other medications prescribed by your doctor. On the day of your colonoscopy, take your medications with a sip of water. Revised 03/2016 1 Five (5) Days Before Your Colonoscopy ?Do NOT take medicines that stop diarrhea -- such as Imodium?, Kaopectate?, or Pepto Bismol?. ?Do NOT take fiber supplements -- such as Metamucil?, Citrucel?, or Perdiem?. ?Do NOT take products that contain iron -- such as multi-vitamins -- (the label lists what is in the products). ?Do NOT take vitamin E. Buy the prescription bowel preparation solution at your local pharmacy or drugstore pharmacy. Three (3) Days Before Your Colonoscopy Do NOT eat high-fiber foods -- such as popcorn, beans, seeds (flax, sunflower, quinoa), multigrain bread, nuts, salad/vegetables, or fresh and dried fruit. One (1) Day Before Your Colonoscopy Only drink clear liquids the ENTIRE DAY before your colonoscopy. Do NOT eat any solid foods. Drink at least 8 ounces of clear liquids every hour after waking up. The clear liquids you can drink include: ?water, apple, or white grape juice; broth; coffee or tea (without milk or creamer); clear carbonated beverages such as jonathon ty or lemon-nenana soda; Gatorade? or other sports drinks (not red); Panda-Aid? or other flavored drinks (not red). You may eat plain jello or other gelatins (not red) or popsicles (not red). Do NOT drink alcohol on the day before or the day of the procedure. 2 Revised 03/2016 When to Mix and Drink Your Bowel Prep Follow the instructions on the label. After mixing, place the solution in the refrigerator for a couple of hours before drinking. You may add the flavor packet that came with the bowel preparation. DO NOT add ice, sugar or any flavorings to the solution. Evening Before Your Colonoscopy ?Start drinking the bowel preparation at 6 PM the evening before your colonoscopy. Drink an 8-oz glass of bowel preparation every 10 minutes. You must finish drinking the solution by 9 PM the night before your scheduled procedure. ?You may continue to drink clear liquids only until midnight. Do NOT eat or drink ANYTHING after midnight the night before your procedure or your procedure may be cancelled. This is for your safety and will reduce the risk of having any food or liquid in your stomach move into your lungs (aspiration) during a procedure. If you take aspirin, take it and ALL other prescribed medicines with a sip of water on the day of your colonoscopy. Contact Information: If you are unable to keep your appointment or have any questions about the instructions, please call the facility where the procedure is being performed. Call between the hours of 8:00 AM and 4:00 PM. If you are calling after 4:00 PM, please leave a message of the best time to reach you. Someone will return your call the next business day. [facility] [address] [place], [place] [id number] Colonoscopy Procedure Overview Please Read Prior to the Procedure What is a Colonoscopy A colonoscopy is an outpatient procedure in which the inside of the large intestine (colon and rectum) is examined. A colonoscopy is commonly used to evaluate gastrointestinal symptoms, such as rectal and intestinal bleeding, abdominal pain, or changes in bowel habits. Colonoscopies are also performed in individuals without symptoms to check for colorectal polyps or cancer. A screening colonoscopy is recommended for anyone 50 years of age and older, and for anyone with parents, siblings or children with a history of colorectal cancer or polyps. What Happens Before a Colonoscopy To have a successful colonoscopy, your bowel must be empty so that your physician can clearly view the colon. To do this, it is very important to read and follow all of the instructions given to you at least 2 weeks BEFORE your exam. If your bowel is not empty, your colonoscopy will not be successful and may have to be repeated. If you feel nauseated or vomit while taking the bowel preparation, wait 30 minutes before drinking more fluid and start with small sips of solution. Some activity (such as walking) or a few soda crackers may help decrease the nausea you are feeling. If the nausea persists, please contact nurse debt collection specialist at [phone]. You may experience skin irritation around the anus due to the passage of liquid stools. To prevent and treat skin irritation, you should: ?Apply Vaseline? or Desitin? ointment to the skin around the anus before drinking the bowel preparation medications. These products can be purchased at any drugstore. ?Wipe the skin after each bowel movement with disposable wet wipes instead of toilet paper. These are found in the toilet paper area of the store. ?Sit in a bathtub filled with warm water for 10 to 15 minutes after you finish passing a stool; after soaking, blot the skin dry with a soft cloth, apply Vaseline? or Desitin? ointment to the anal area, and place a cotton ball just outside your anus to absorb leaking fluid. What Happens During a Colonoscopy During a colonoscopy, an experienced physician uses a colonoscope (a long, flexible instrument about 1/2 inch in diameter) to view the lining of the colon. The colonoscope is inserted into the rectum and advanced through the large intestine. If necessary during a colonoscopy, small amounts of tissue can be removed for analysis (a biopsy) and polyps can be identified and entirely removed. In many cases, a colonoscopy allows accurate diagnosis and treatment of colorectal problems without the need for a major operation. Revised 03/2016 5 ?You are asked to wear a hospital gown and an IV will be started. ?You are given a pain reliever and a sedative intravenously (in your vein). You will feel relaxed and somewhat drowsy. ?You will lie on your left side, with your knees drawn up towards your chest. ?A small amount of air is used to expand the colon so the physician can see the colon alegre. ?You may feel mild cramping during the procedure. Cramping can be reduced by taking slow, deep breaths. ?The colonoscope is slowly withdrawn while the lining of your bowel is carefully examined. ?The procedure lasts from 30 minutes to 1 hour. What Happens After a Colonoscopy ?You will stay in a recovery room for observation until you are ready for discharge. ?You may feel some cramping or a sensation of having gas, but this quickly passes. ?If sedation has been given, a responsible family member or friend must drive you home. ?Avoid alcohol, driving, and operating machinery for 24 hours following the procedure. ?Unless otherwise instructed, you may immediately return to your normal diet. We recommend you wait until the day after your procedure to resume normal activities. ?If polyps were removed or a biopsy was taken, the physician performing your colonoscopy will tell you when it is safe to resume taking your blood thinners. ?If a biopsy was taken or a polyp was removed, you may notice a little amount of rectal bleeding for 1 to 2 days after the procedure. If you have a large amount of rectal bleeding, high or persistent fevers, or severe abdominal pain within the next 2 weeks, please go to your local emergency room and call the physician who performed your exam. 6 Revised 03/2016 ?Copyright 5950-2565 The [facility]. All rights reserved. Revised 03/2016 Prescriptions ordered this encounter Disp Refills Start End CYCLOBENZAPRINE 5 MG TABLET 15 t* 0 09/30/2018 Route: ORAL Sig: Take 1 tablet by mouth three times daily as needed. PEG 3350 240 GRAM-ELECTROLYTES 22.72* 4000* 0 09/30/2018 09/30/2018 Route: ORAL Sig: Take 4,000 mL by mouth one time only for 1 dose. Medications Discontinued During This Encounter cyclobenzaprine (FLEXERIL) 5 mg tabl* 30 t* 0 02/06/2018 09/30/2018 Route: ORAL Sig: Take 1 tablet by mouth three times daily as needed. Patient not taking: Reported on 09/30/2018 Disc: Reason for discontinue is not on file. Level of Service: EST PATIENT VISIT LEVEL 3 [68499] Disposition: Return if symptoms worsen or fail to improve. Follow-up and Disposition History Recorded Encounter Status:Closed by SUHAIL NIX CNP on 09/30/18 [facility] 09-30-2018 [facility] [place] Telephone (AGINTMLW) ELPIDIO CORNELIUS ([id number]) 1965 M Date Time Provider Department 09/30/18 SUHAIL NIX ([facility]) AGINTMLW During your visit today, we recorded the following information about you: Iram Cabello Pss 09/30/2018 8:10 AM Signed Put on [facility] Confirm # [id number] conner Cabello Pss 10/09/2018 12:24 PM Signed Per [facility] Patient Declined Appointment ? 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 Allergies As of Date: 09/30/2018 (No Known Allergies) Date Reviewed: 09/30/2018 Reviewed by: Suhail Doran (Ben) BEN Nix - Fully Assessed Reason for Visit: Consult [502] Cmt: Dr Love Prescriptions as of 09/30/2018 Sig: CYCLOBENZAPRINE 5 MG TABLET Take 1 tablet by mouth three * NAPROXEN 500 MG TABLET Take 1 tablet by mouth twice * Patient taking differently: Take 500 mg by mouth twice da* SILDENAFIL 100 MG TABLET Take 1 tablet by mouth as nee* Problem List As Of Date 09/30/2018 Noted Resolved Golfer's elbow [M77.00] INVALID FOR* Hyperopia [H52.00] INVALID FOR* Pain in right elbow [M25.521] INVALID FOR* Right arm weakness [R29.898] INVALID FOR* Tennis elbow [M77.10] INVALID FOR* Encounter Status:Closed by IRAM HYDE on 09/30/18 [facility] PROGRESSon 09-30-2018 PROGRESS HNO ID: [id number] Author: Dona Garcia Service: ? Author Type: Trucker Hand Type: Progress Notes Filed: 09/30/2018 11:56 AM Note Text: OPEN ACCESS QUESTIONNAIRE 1. Are you or could you be ? No 2. Are you currently having any stomach/gastrointesti nal issues at this time such as constipation, diarrhea, abdominal pain, rectal bleeding etc? No 3. Do you have an implanted device such as a defibrillator, pacemaker, Cardiac Stent or deep brain stimulation device? No 4. Do you have any new or past cardiac (heart) or pulmonary (lung) issues? No 5. Is the patient's BMI 40 or greater? No:Body mass index is 22.21 kg/m?.. Last Wt 09/30/18 : 64.3 kg (141 lb 12.8 oz) Last Ht 09/30/18 : 170.2 cm (5' 7) 6. Have you had difficulty with prior sedations or complications with other procedures? No 7. Have you had difficulty with anesthesia previously re: ? Difficult intubation? No ? Other difficulty or allergic reaction to anesthesia other than post op N/V? No 8. Do you currently use oxygen or a breathing machine at night? No 9. Do you take any narcotics, depression or anti-Anxiety medications or 3 or more prescription drugs on a daily basis? No 10. Do you use any illegal or recreational drugs? No 11. Have you been hospitalized in the past 6 weeks? No 12. Are you on dialysis or have Chronic Kidney Disease? No 13. Have you been diagnosed with chronic liver disease such as hepatitis or cirrhosis? No 14. Do you have a seizure disorder? No 15. Do you have difficulty swallowing? No 16. Do you have ulcerative colitis or Crohn's disease? No 17. Do you take any Blood thinners, including Aspirin or fish oil? No 18. Do you have any blood disorders (re:hemophiliac)? No 19. Are you Diabetic? No 20. Any other important health information we should be made aware of prior to your colonoscopy? No 21. Any alcohol use: No. To be completed by LIP: Patient appropriate for Open Access Colonoscopy: Yes: appropriate for Open Access Procedure Checklist: Prior to closing the encounter: ? Complete questionnaire: Yes ? Have you chosen Prep order and has it been Ordered/Pended: Yes. ? Patient's procedure could be delayed if not given the script for the prep. Please ensure the prep is escripted to pharmacy or printed. Instructions for the prep will print upon filing or pending this smartset. ? Please send all open access questionnaires to [facility] #[id number] [facility] PROGRESS HNO ID: [id number] Author: Suhail Doran (Air Control Electronics Operator) BEN Nix Service: ? Author Type: Nurse Practitioner Type: Progress Notes Filed: 09/30/2018 11:56 AM Note Text: Subjective HPI Elpidio Cornelius is 53 yo male here today with right lower back pain x 1 wk. States about a week ago it felt sore like he bumped it and then started having sharp stabbing pain x 2 days. States it was constant for several days but it is now only sore when he touches it. States movement did increase the pain. Rest helped improve pain. He did take naproxen 500 mg twice daily for 2 days. States it did help. Now patient reports pain only when he applies pressure to area or if roles onto his side. No pain currently with movement. Denies radiation of pain, injury, numbness or tingling, loss of bowel or bladder, or saddle anesthesia. Pt does report the week if started he was doing a job that required a lot of going up and down hill and pull motion. 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 Preventative: He is not up todate with his tetanus and is willing to have today. He has never had colonoscopy. He is willing to have completed. PAST MEDICAL HISTORY Diagnosis Date - NEGATIVE MEDICAL HISTORY PAST SURGICAL HISTORY Procedure Laterality Date - ELBOW RIGHT Right has had ozone injections on right elbow 10/22/16 and 10/08/16 - TONSILLECTOMY HX Family History Problem Relation Age of Onset - other (unknown) Other pt adopted Social History Socioeconomic History Marital status: Single Spouse name: Not on file Number of children: Not on file Years of education: Not on file Highest education level: Not on file Occupational History Not on file Social Needs Financial resource strain: Not on file Food insecurity: Worry: Not on file Inability: Not on file Transportation needs: Medical: Not on file Non-medical: Not on file Tobacco Use Smoking status: Former Smoker Quit date: 12/24/2017 Years since quittin.7 Smokeless tobacco: Current User Types: Chew Substance and Sexual Activity Alcohol use: No Drug use: No Sexual activity: Not on file Lifestyle Physical activity: Days per week: Not on file Minutes per session: Not on file Stress: Not on file Relationships Social connections: Talks on phone: Not on file Gets together: Not on file Attends yarsanism service: Not on file Active member of club or organization: Not on file Attends meetings of clubs or organizations: Not on file Relationship status: Not on file Intimate partner violence: Fear of current or ex partner: Not on file Emotionally abused: Not on file Physically abused: Not on file Forced sexual activity: Not on file Other Topics Concerns: Service: Not Asked Blood Transfusions: Not Asked Caffeine Concern: Yes Occupational Exposure: Not Asked Hobby Hazards: Not Asked Sleep Concern: Not Asked Stress Concern: Not Asked Weight Concern: Not Asked Special Diet: Not Asked Back Care: Not Asked Exercise: Not Asked Bike Helmet: Not Asked Seat Belt: Not Asked Self-Exams: Not Asked Social History Narrative Not on file Current Outpatient Medications on File Prior to Visit: naproxen (NAPROSYN) 500 mg tablet Take 1 tablet by mouth twice daily with meals. (Patient taking differently: Take 500 mg by mouth twice daily as needed. ) sildenafil (VIAGRA) 100 mg tablet Take 1 tablet by mouth as needed. No current facility-administered medications on file prior to visit. Review of Systems Constitutional: Negative for chills and fever. Respiratory: Negative for shortness of breath. Cardiovascular: Negative for chest pain and palpitations. Gastrointestinal: Negative. Genitourinary: Negative. Negative for dysuria, flank pain, frequency, hematuria and urgency. Musculoskeletal: Positive for back pain. Negative for falls, joint pain, myalgias and neck pain. Neurological: Negative for tingling, sensory change, focal weakness and weakness. 09/30/18 0738 BP: 100/70 BP Site: Right Arm BP Position: Sitting BP Cuff Size: Regular Adult Pulse: 76 Resp: 18 Temp: 36.7 ?C (98 ?F) TempSrc: Oral Weight: 64.3 kg (141 lb 12.8 oz) Height: 170.2 cm (5' 7) Objective Physical Exam Constitutional: He is oriented to person, place, and time and well-developed, well-nourished, and in no distress. No distress. Cardiovascular: Normal rate, regular rhythm and normal heart sounds. Pulmonary/Chest: Effort normal and breath sounds normal. Abdominal: Soft. Bowel sounds are normal. There is no CVA tenderness. Musculoskeletal: Right shoulder: He exhibits tenderness and spasm. He exhibits normal range of motion, no bony tenderness and no pain. Right hip: Normal. Thoracic back: Normal. Arms: Neurological: He is alert and oriented to person, place, and time. He has normal motor skills, normal strength and normal reflexes. He has a normal Straight Leg Raise Test. Gait normal. Gait normal. Ability to change positions normal Skin: Skin is warm and dry. No rash noted. He is not diaphoretic. No erythema. No pallor. Psychiatric: Mood, memory, affect and judgment normal. ASSESSMENT/PLAN: 1. Acute right-sided low back pain without sciatica - ICD9: 724.2, ICD10: M54.5 (primary diagnosis) Lumbosacral sprain - Bedrest for 2-3 days - Ice for localized tenderness - Warm moist heat for 20 min three times a day - NSAIDS- see orders - Muscle relaxant- see orders - CYCLOBENZAPRINE 5 MG TABLET 2. Screen for colon cancer - ICD9: V76.51, ICD10: Z12.11 - CONSULT TO SCREENING COLONOSCOPY 3. Need for Tdap vaccination - ICD9: V06.1, ICD10: Z23 - TDAP VACCINE AGE 7+ IM - Given today Suhail Nix APRN.[facility] PROGRESSon 09-20-2018 PROGRESS HNO ID: [id number] Author: Flaquito Gilbert Service: ? Author Type: Physician Type: Progress Notes Filed: 09/20/2018 9:01 AM Note Text: Hypermetropia of both eyes (primary encounter diagnosis) Flaquito Gilbert MD [facility] RIBS CHEST 3V AP RIB/OBLS/C LEFTon 02-22-2018 RIBS CHEST 3V AP RIB/OBLS/C LEFT Performed at [facility] APPROVED BY: Tremayne Kinney MD EXAM TITLE: SINGLE VIEW OF THE CHEST AND 2 VIEWS LEFT RIBS DATE:02/22/2018 10:50 COMPARISON: None. CLINICAL INDICATION/HISTORY: Pain on the left side following injury RESULT: The lungs are clear and well expanded. No pneumothorax. There is a suspected nondisplaced fracture of the left ninth rib at the posterolateral aspect. No additional evidence of rib fracture. IMPRESSION: Suspected fracture of the left ninth rib. No pneumothorax or acute intrathoracic abnormality is seen. [facility] Vital Signs Date Time Vital Sign Value Performing Clinician Facility 10-03-2024 16:49-0400 Body height 170.2 cm Bhupinder Cavanaugh APRN.BEN Work Phone: [place] 10-03-2024 16:49-0400 Body mass index (BMI) [Ratio] 21.3 kg/m2 Bhupinder Cavanaugh APRN.ACADEMY EDUCATION DIRECTOR Work Phone: [place] 10-03-2024 16:49-0400 Body temperature 98.4 [degF] Bhupinder Cavanaugh APRN.ACADEMY EDUCATION DIRECTOR Work Phone: [place] 10-03-2024 16:49-0400 Body weight 61.69 kg Bhupinder Cavanaugh APRN.ACADEMY EDUCATION DIRECTOR Work Phone: [place] 10-03-2024 16:49-0400 Diastolic blood pressure 64 mm[Hg] Bhupinder Cavanaugh APRN.ACADEMY EDUCATION DIRECTOR Work Phone: [place] 10-03-2024 16:49-0400 Heart rate 75 /min Bhupinder Cavanaugh APRN.ACADEMY EDUCATION DIRECTOR Work Phone: [place] 10-03-2024 16:49-0400 Respiratory rate 16 /min Bhupinder Cavanaugh APRN.ACADEMY EDUCATION DIRECTOR Work Phone: [place] 10-03-2024 16:49-0400 SaO2% (BldA) [Mass fraction] 96 % Bhupinder Cavanaugh APRN.ACADEMY EDUCATION DIRECTOR Work Phone: [place] 10-03-2024 16:49-0400 Systolic blood pressure 108 mm[Hg] Bhupinder Cavanaugh APRN.ACADEMY EDUCATION DIRECTOR Work Phone: [place] 09-12-2024 15:55-0400 Body height 170.2 cm Kimberly Queden SALAD COUNTER ATTENDANT.ACADEMY EDUCATION DIRECTOR Work Phone: [place] 09-12-2024 15:55-0400 Body mass index (BMI) [Ratio] 21.14 kg/m2 Kimberly Queden SALAD COUNTER ATTENDANT.ACADEMY EDUCATION DIRECTOR Work Phone: [place] 09-12-2024 15:55-0400 Body temperature 98.1 [degF] Kimberly Queden SALAD COUNTER ATTENDANT.ACADEMY EDUCATION DIRECTOR Work Phone: [place] 09-12-2024 15:55-0400 Body weight 61.24 kg Kimberly Queden SALAD COUNTER ATTENDANT.ACADEMY EDUCATION DIRECTOR Work Phone: [place] 09-12-2024 15:55-0400 Diastolic blood pressure 62 mm[Hg] Kimberly Queden SALAD COUNTER ATTENDANT.ACADEMY EDUCATION DIRECTOR Work Phone: [place] 09-12-2024 15:55-0400 Heart rate 71 /min Kimberly Queden SALAD COUNTER ATTENDANT.ACADEMY EDUCATION DIRECTOR Work Phone: [place] 09-12-2024 15:55-0400 Respiratory rate 18 /min Kimberly Queden SALAD COUNTER ATTENDANT.ACADEMY EDUCATION DIRECTOR Work Phone: [place] 09-12-2024 15:55-0400 SaO2% (BldA) [Mass fraction] 96 % Kimberly Queden SALAD COUNTER ATTENDANT.ACADEMY EDUCATION DIRECTOR Work Phone: [place] 09-12-2024 15:55-0400 Systolic blood pressure 116 mm[Hg] Kimberly Queden SALAD COUNTER ATTENDANT.ACADEMY EDUCATION DIRECTOR Work Phone: [place] 01-24-2024 10:19-0500 Body height 170.2 cm Peri Perkins APRN-ACADEMY EDUCATION DIRECTOR Work Phone: [facility] 01-24-2024 10:19-0500 Body mass index (BMI) [Ratio] 22.71 kg/m2 Peri Perkins APRN-ACADEMY EDUCATION DIRECTOR Work Phone: [facility] 01-24-2024 10:190500 Body temperature 97.59 [degF] Peri Perkins SALAD COUNTER ATTENDANT-ACADEMY EDUCATION DIRECTOR Work Phone: [facility] 01-24-2024 10:19-0500 Body weight 65.77 kg Peri Perkins SALAD COUNTER ATTENDANT-ACADEMY EDUCATION DIRECTOR Work Phone: [facility] 01-24-2024 10:19-0500 Diastolic blood pressure 83 mm[Hg] Peri Perkins SALAD COUNTER ATTENDANT-ACADEMY EDUCATION DIRECTOR Work Phone: [facility] 01-24-2024 10:190500 Heart rate 79 /min Peri Perkins SALAD COUNTER ATTENDANT-ACADEMY EDUCATION DIRECTOR Work Phone: [facility] 01-24-2024 10:190500 Respiratory rate 16 /min Peri Perkins SALAD COUNTER ATTENDANT-ACADEMY EDUCATION DIRECTOR Work Phone: [facility] 01-24-2024 10:190500 SaO2% (BldA) [Mass fraction] 96 % Peri Perkins SALAD COUNTER ATTENDANT-ACADEMY EDUCATION DIRECTOR Work Phone: [facility] 01-24-2024 10:190500 Systolic blood pressure 128 mm[Hg] Peri Perkins SALAD COUNTER ATTENDANT-ACADEMY EDUCATION DIRECTOR Work Phone: [facility] 05-21-2023 13:04-0400 Body height 170.2 cm Jovan Jacobson SALAD COUNTER ATTENDANT-ACADEMY EDUCATION DIRECTOR Work Phone: [facility] 05-21-2023 13:04-0400 Body mass index (BMI) [Ratio] 22.71 kg/m2 Jovan Jacobson SALAD COUNTER ATTENDANT-ACADEMY EDUCATION DIRECTOR Work Phone: [facility] 05-21-2023 13:04-040 Body temperature 98.2 [degF] Jovan Jacobson SALAD COUNTER ATTENDANT-ACADEMY EDUCATION DIRECTOR Work Phone: [facility] 05-21-2023 13:04-0400 Body weight 65.77 kg Jovan Jacobson SALAD COUNTER ATTENDANT-ACADEMY EDUCATION DIRECTOR Work Phone: [facility] 05-21-2023 13:04-0400 Diastolic blood pressure 91 mm[Hg] Jovan Jacobson SALAD COUNTER ATTENDANT-ACADEMY EDUCATION DIRECTOR Work Phone: [facility] 05-21-2023 13:04-0400 Heart rate 81 /min Jovan Jacobson SALAD COUNTER ATTENDANT-ACADEMY EDUCATION DIRECTOR Work Phone: [facility] 05-21-2023 13:04-0400 Respiratory rate 14 /min Jovan Jacobson SALAD COUNTER ATTENDANT-ACADEMY EDUCATION DIRECTOR Work Phone: [facility] 05-21-2023 13:04-0400 SaO2% (BldA) [Mass fraction] 97 % Jovan Romeroenimj SALAD COUNTER ATTENDANT-ACADEMY EDUCATION DIRECTOR Work Phone: [facility] 05-21-2023 13:04-0400 Systolic blood pressure 126 mm[Hg] Jovan Romeroenimj SALAD COUNTER ATTENDANT-ACADEMY EDUCATION DIRECTOR Work Phone: [facility] 03-27-2023 10:30-0500 Body height 170.2 cm Jovan Romeroenimj SALAD COUNTER ATTENDANT-ACADEMY EDUCATION DIRECTOR Work Phone: [facility] 03-27-2023 10:30-0500 Body mass index (BMI) [Ratio] 22.71 kg/m2 Jovan Romeroenimj SALAD COUNTER ATTENDANT-ACADEMY EDUCATION DIRECTOR Work Phone: [facility] 03-27-2023 10:30-0500 Body temperature 98.01 [degF] Jovan Romeroenimj SALAD COUNTER ATTENDANT-ACADEMY EDUCATION DIRECTOR Work Phone: [facility] 03-27-2023 10:30-0500 Body weight 65.77 kg Jovan Romeroenimj SALAD COUNTER ATTENDANT-ACADEMY EDUCATION DIRECTOR Work Phone: [facility] 03-27-2023 10:30-0500 Diastolic blood pressure 74 mm[Hg] Jovan Romeroenimj SALAD COUNTER ATTENDANT-ACADEMY EDUCATION DIRECTOR Work Phone: [facility] 03-27-2023 10:30-0500 Heart rate 65 /min Jovan Romeroenimj SALAD COUNTER ATTENDANT-ACADEMY EDUCATION DIRECTOR Work Phone: [facility] 03-27-2023 10:30-0500 Respiratory rate 18 /min Jovan Kamenik SALAD COUNTER ATTENDANT-ACADEMY EDUCATION DIRECTOR Work Phone: [facility] 03-27-2023 10:30-0500 SaO2% (BldA) [Mass fraction] 97 % Jovan Jacobson SALAD COUNTER ATTENDANT-ACADEMY EDUCATION DIRECTOR Work Phone: [facility] 03-27-2023 10:30-0500 Systolic blood pressure 124 mm[Hg] Jovan Jacobson SALAD COUNTER ATTENDANT-ACADEMY EDUCATION DIRECTOR Work Phone: [facility] 09-11-2022 09:02-0400 Body height 170.2 cm Suhail Boyd SALAD COUNTER ATTENDANT.ACADEMY EDUCATION DIRECTOR Work Phone: [place] 09-11-2022 09:02-0400 Body temperature 98.2 [degF] Suhail Boyd SALAD COUNTER ATTENDANT.ACADEMY EDUCATION DIRECTOR Work Phone: [place] 09-11-2022 09:02-0400 Body weight 65.14 kg Suhail Boyd SALAD COUNTER ATTENDANT.ACADEMY EDUCATION DIRECTOR Work Phone: [place] 09-11-2022 09:02-0400 Diastolic blood pressure 60 mm[Hg] Suhail Boyd SALAD COUNTER ATTENDANT.ACADEMY EDUCATION DIRECTOR Work Phone: [place] 09-11-2022 09:02-0400 Heart rate 69 /min Suhail Boyd SALAD COUNTER ATTENDANT.ACADEMY EDUCATION DIRECTOR Work Phone: [place] 09-11-2022 09:02-0400 Respiratory rate 18 /min Suhail Boyd SALAD COUNTER ATTENDANT.ACADEMY EDUCATION DIRECTOR Work Phone: [place] 09-11-2022 09:02-0400 SaO2% (BldA) [Mass fraction] 95 % Suhail Boyd SALAD COUNTER ATTENDANT.ACADEMY EDUCATION DIRECTOR Work Phone: [place] 09-11-2022 09:02-0400 Systolic blood pressure 100 mm[Hg] Suhail Boyd SALAD COUNTER ATTENDANT.ACADEMY EDUCATION DIRECTOR Work Phone: [place] 05-09-2022 12:46-0400 Body height 170 cm Suhail Boyd Other Phone: [facility] 05-09-2022 12:46-0400 Body temperature 98.06 [degF] Suhail Boyd Other Phone: [facility] 05-09-2022 12:46-0400 Diastolic blood pressure 85 mm[Hg] Suhail Boyd Other Phone: [facility] 05-09-2022 12:46-0400 Heart rate 82 /min Suhail Boyd Other Phone: [facility] 05-09-2022 12:46-0400 Respiratory rate 16 /min Suhail Boyd Other Phone: [facility] 05-09-2022 12:46-0400 SaO2% (BldA) [Mass fraction] 95 % Suhail Boyd Other Phone: [facility] 05-09-2022 12:46-0400 Systolic blood pressure 131 mm[Hg] Suhail Boyd Other Phone: [facility] 03-01-2022 13:21-0500 Body height 170.2 cm Donna Salas PA-C Work Phone: [place] 03-01-2022 13:21-0500 Body weight 66.22 kg Donna Salas PA-C Work Phone: [place] 03-01-2022 13:21-0500 Diastolic blood pressure 72 mm[Hg] Donna Salas PA-C Work Phone: [place] 03-01-2022 13:21-0500 Heart rate 70 /min Donna Salas PA-C Work Phone: [place] 03-01-2022 13:21-0500 Systolic blood pressure 108 mm[Hg] Donna Salas PA-C Work Phone: [place] NEGATED: Zhou [id number] 13:17-0400 BMI (Body Mass Index) 21.06 kg/m2 [facility] Work Phone: NEGATED: Highlighted [id number] 13: Body weight 60.78 kg [facility] Work Phone: NEGATED: Highlighted [id number] 13: Body weight 61 kg [facility] Work Phone: NEGATED: Highlighted [id number] 13:040 Height 170.18 cm [facility] Work Phone: NEGATED: Highlighted [id number] 13: Height 170 cm [facility] Work Phone: Encounters Encounter Date Encounter Type Care Provider Facility Start: 10-24-2024 ambulatory [facility] CHEMICAL SALES REPRESENTATIVE Facil ity:[facility] Start: 10-14-2024 End: 10-14-2024 [facility] Start: 10-03-2024 End: 10-03-2024 ambulatory [facility] Start: 10-03-2024 End: 10-03-2024 Patient encounter procedure Bhupinder Cavanaugh APRN.ACADEMY EDUCATION DIRECTOR Work Phone: [facility] Comment on above: Kidney stone (Primar y Dx) Start: 09-18-2024 End: 09-18-2024 Emergency department patient visit [facility] Facility:[facility] Start: 09-12-2024 End: 09-12-2024 Patient encounter procedure Kimberly Padilla APRN.ACADEMY EDUCATION DIRECTOR Work Phone: [facility] Comment on above: Vertigo (Primary Dx) ; Tinnitus of right ear; Occupational exposure to noise Start: 09-12-2024 End: 09-12-2024 ambulatory [facility] Start: 05-03-2024 End: 05-03-2024 Emergency department patient visit [facility] Facility:[facility] Start: 01-24-2024 End: 01-24-2024 Patient encounter procedure Peri Perkins SALAD COUNTER ATTENDANT-ACADEMY EDUCATION DIRECTOR Work Phone: [facility] Comment on above: Viral URI with cough (Primary Dx) Start: 01-24-2024 End: 01-24-[address] [facility] Start: 05-21-2023 End: 05-21-2023 Patient encounter procedure Jovan Jacobson SALAD COUNTER ATTENDANT-ACADEMY EDUCATION DIRECTOR Work Phone: [facility] Comment on above: Acute bronchitis, un specified organism (Primary Dx) Start: 05-21-2023 End: 05-21-[address] [facility] Start: 03-27-2023 End: 03-27-2023 Patient encounter procedure Jovan Jacobson SALAD COUNTER ATTENDANT-ACADEMY EDUCATION DIRECTOR Work Phone: [facility] Comment on above: Acute non-recurrent maxillary sinusitis (Primary Dx); Acute bronchitis, unspecified organism Start: 03-27-2023 End: 03-27-[address] [facility] Start: 09-11-2022 End: 09-11-2022 Patient encounter procedure Suhail Nix SALAD COUNTER ATTENDANT.ACADEMY EDUCATION DIRECTOR Work Phone: [facility] Comment on above: Gastroesophageal ref lux disease without esophagitis (Primary Dx); Screening for deficiency anemia; Encounter for screening for diabetes mellitus; Screening for lipid disorders; Screening for HIV (human immunodeficiency virus); Encounter for hepatitis C screening test for low risk patient; Screening for malignant neoplasm of prostate; Screening for thyroid disorder; Screening for cardiovascular condition Start: 09-05-2022 Telephone encounter Suhail Nix SALAD COUNTER ATTENDANT.ACADEMY EDUCATION DIRECTOR Work Phone: [facility] Comment on above: Patient Question Start: 05-18-2022 End: 05-18-2022 Emergency department patient visit Anabella Diop [facility] Start: 05-09-2022 End: 05-09-2022 Emergency department patient visit Jovan Jacobson [facility] Start: 03-01-2022 End: 03-01-2022 Patient encounter procedure Donna Marina PA-C Work Phone: [facility] Comment on above: Heartburn (Primary D x); Indigestion; Tobacco abuse; Loose stools Start: 05-16-2019 End: 05-16-2019 Patient encounter procedure Devorah Kincaid SALAD COUNTER ATTENDANT-ACADEMY EDUCATION DIRECTOR Work Phone: [facility] Work Phone: Start: 03-07-2018 End: 03-07-2018 Patient encounter procedure [facility] Facility:[facility] Start: 02-22-2018 End: 02-22-2018 Patient encounter procedure [facility] Facility:[facility] Procedures Date Procedure Procedure Detail Performing Clinician Start: 05-16-2019 End: 05-16-2019 Blood pressure screening not performed - reason not given Devorah Justicetley SALAD COUNTER ATTENDANT-ACADEMY EDUCATION DIRECTOR Work Phone: Start: 05-16-2019 End: 05-16-2019 BMI documented within normal parameters - no follow-up plan is required Devorah Justicetley SALAD COUNTER ATTENDANT-ACADEMY EDUCATION DIRECTOR Work Phone: Start: 05-16-2019 End: 05-16-2019 Documentation of current medications Devorahmeir Kincaid SALAD COUNTER ATTENDANT-ACADEMY EDUCATION DIRECTOR Work Phone: Start: 05-16-2019 End: 05-16-2019 Injection - betamethasone acetate 3 mg and betamethasone sodium phosphate 3 mg Devorah A Wattley SALAD COUNTER ATTENDANT-ACADEMY EDUCATION DIRECTOR Work Phone: Start: 05-16-2019 End: 05-16-2019 Injection single tendon origin/insertion Devorah A Reshmatley SALAD COUNTER ATTENDANT-ACADEMY EDUCATION DIRECTOR Work Phone: Start: 05-16-2019 End: 05-16-2019 Pain assessment documented as positive - follow-up documented Devorah A Reshmatley SALAD COUNTER ATTENDANT-ACADEMY EDUCATION DIRECTOR Work Phone: Start: 05-16-2019 End: 05-16-2019 Pt tobacco screen rcvd tlk Devorah Kincaid SALAD COUNTER ATTENDANT-ACADEMY EDUCATION DIRECTOR Work Phone: Start: 12-24-2018 Colonoscopy Donna Marina PA-C Work Phone: Start: 07-13-2014 Lipid 1996 panel - S ge or Plasma Kimberly Castrejonlarry SALAD COUNTER ATTENDANT.ACADEMY EDUCATION DIRECTOR Work Phone: NEGATED: Highlighted rowStart: 05-16-2019 End: 05-16-2019 Documentation of current medications Clementina Toth NEGATED: Highlighted rowStart: 05-16-2019 End: 05-16-2019 Smoking cessation education Clementina Toth Plan of Treatment Date Care Activity Detail Author Start: 12-24-2028 Colonoscopy COLONOSCOPY [place] Start: 12-24-2028 COLORECTAL CANCER SCREENING COLORECTAL CANCER SCREENING [place] Start: 12-24-2028 Screening for malign ant neoplasm of colon [place] Start: 09-30-2028 DTaP/Tdap/Td Vaccine s (2 - Td or Tdap) DTaP/Tdap/Td Vaccines (2 - Td or Tdap) [facility] Start: 09-30-2028 Urine microalbumin profile [place] Start: 09-19-2027 Diabetes Screening Diabetes Screenin g [place] Start: 2026 RSV patient s and/or patients aged 60+ years (1 - 1-dose 60+ series) RSV patients and/or patients aged 60+ years (1 - 1-dose 60+ series) [facility] Start: 02-23-2026 Diabetes Screening Diabetes Screenin g [place] Start: 10-06-2024 Influenza vaccination Influenza Vacc ine (#1) [place] Start: 10-07-2023 COVID-19 Vaccine ( season) COVID-19 Vaccine ( season) [facility] Start: 10-07-2023 Influenza vaccination U [facility] Start: 09-12-2023 PNEUMOCOCCAL (1 - PCV) PNEUMOCOCCAL (1 - PCV) [place] Comment on above: Postponed from 06/25 (Declined at this time) Start: 09-12-2023 SHINGRIX VACCINE (1 of 2) SHINGRIX VACCINE (1 of 2) [place] Comment on above: Postponed from 06/25 (Declined at this time) Start: 10-06-2022 COVID-19 Vaccine () COVID-19 Vaccine () [facility] Start: 10-06-2022 Influenza vaccination C [facility] Start: 09-11-2022 End: 11-11-2022 CBC panel - Blood by Automated count CBC Lab Routine Screening for deficiency anemia Expected: 09/11/2022, Expires: 11/11/2022 [facility] Work Phone: Comment on above: Expected: 09/11/2022 , Expires: 11/11/2022 Start: 09-11-2022 End: 11-11-2022 Comprehensive metabolic 2000 panel - Serum or Plasma COMP METABOLIC PANEL Lab Routine Encounter for screening for diabetes mellitus Expected: 09/11/2022, Expires: 11/11/2022 [facility] Work Phone: Comment on above: Expected: 09/11/2022 , Expires: 11/11/2022 Start: 09-11-2022 End: 11-11-2022 Hepatitis C virus Ab [Presence] in Serum HEPATITIS C ANTIBODY IA WITH CONFIRMATION Lab Routine Encounter for hepatitis C screening test for low risk patient Expected: 09/11/2022, Expires: 11/11/2022 [facility] Work Phone: Comment on above: Expected: 09/11/2022 , Expires: 11/11/2022 Start: 09-11-2022 End: 11-11-2022 HIV 1+2 Ab [Presence] in Serum or Plasma by Immunoassay HIV 1 2 COMBO(AG/AB),WITH REFLEX TO DIFFERENTIATION Lab Routine Screening for HIV (human immunodeficiency virus) Expected: 09/11/2022, Expires: 11/11/2022 [facility] Work Phone: Comment on above: Expected: 09/11/2022 , Expires: 11/11/2022 Start: 09-11-2022 End: 11-11-2022 Lipid 1996 panel - Serum or Plasma LIPID PANEL BASIC Lab Routine Screening for lipid disorders Expected: 09/11/2022, Expires: 11/11/2022 [facility] Work Phone: Comment on above: Expected: 09/11/2022 , Expires: 11/11/2022 Start: 09-11-2022 End: 11-11-2022 PSA/PROSTSPECAG SCRN PSA/PROSTSPECAG SCRN Lab Routine Screening for malignant neoplasm of prostate Expected: 09/11/2022, Expires: 11/11/2022 [facility] Work Phone: Comment on above: Expected: 09/11/2022 , Expires: 11/11/2022 Start: 09-11-2022 End: 11-11-2022 Thyrotropin [Units/volume] in Serum or Plasma TSH BLD Lab Routine Screening for thyroid disorder Expected: 09/11/2022, Expires: 11/11/2022 [facility] Work Phone: Comment on above: Expected: 09/11/2022 , Expires: 11/11/2022 Start: 02-05-2022 DEPRESSION ASSESSMENT DEPRESSION ASS ESSMENT [place] Start: 10-06-2021 Influenza vaccination INFLUENZA (#1) [place] Start: 2021 PROSTATE CANCER SCREENING DISCUSSION PROSTATE CANCER SCREENING DISCUSSION [place] Start: 07-14-2019 Lipid panel Lipid Screening [facility] Start: 07-14-2019 LIPID SCREEN LIPID SCREEN [place] Start: 05-16-2019 End: 05-16-2019 Appointment Appointment [facility] Work Phone: Start: 05-16-2019 End: 05-16-2019 Radex elbow 2 views XR ELBOW 2 VWS-RT [facility] Work Phone: Start: 07-13-2017 DIABETES SCREEN DIABETES SCREEN [facility] Start: 2016 Pneumococcal vaccination Pneumococcal Vaccine (1 of 1 - PCV) [facility] Start: 2016 SHINGRIX VACCINE (1 of 2) SHINGRIX VACCINE (1 of 2) [place] Start: 2016 Zoster Vaccines (1 o f 2) Zoster Vaccines (1 of 2) [facility] Start: 06-26-2011 COLOGUARD (FIT-DNA) COLOGUARD (FIT-D NA) [place] Start: 06-26-[address] COLONOGRAPHY [facility] Start: 06-26-2011 FECAL OCCULT BLOOD FECAL OCCULT BLOO D [place] Start: 06-26-2011 Prostate specific antigen measurement Prostate Cancer Screening Discussion [place] Start: 06-26-2011 Screening for malign ant neoplasm of colon [place] Start: 06-26-2011 SIGMOIDOSCOPY SIGMOIDOSCOPY [facility] Start: 1985 Hepatitis B Vaccine (1 of 3 - 19+ 3-dose series) Hepatitis B Vaccine (1 of 3 - 19+ 3-dose series) [place] Start: 1985 Hepatitis B Vaccines (1 of 3 - 19+ 3-dose series) Hepatitis B Vaccines (1 of 3 - 19+ 3-dose series) [facility] Start: 1985 Pneumococcal Vaccine : 50+ (1 of 2 - PCV) Pneumococcal Vaccine: 50+ (1 of 2 - PCV) [place] Start: 1984 Anxiety Screening Anxiety Screening [place] Start: 1984 Depression Screening Depression Scre ening [place] Start: 1984 HEPATITIS C SCREENING HEPATITIS C [facility] Start: 1984 Hepatitis C screening Hepatitis C [facility] Start: 1984 HIV SCREENING HIV SCREENING [facility] Start: 1984 HIV screening HIV Screening [facility] Start: 1972 PNEUMOCOCCAL (1 - PCV) PNEUMOCOCCAL (1 - PCV) [place] Start: 06-26-1967 MMR Vaccines (1 of 1 - Standard series) MMR Vaccines (1 of 1 - Standard series) [facility] Start: 1966 COVID-19 VACCINE (#1) COVID-19 VACCI NE (#1) [place] Start: 1966 HEPATITIS B (1 of 3 - 3-dose series) HEPATITIS B (1 of 3 - 3-dose series) [place] Start: 1966 Hepatitis B Vaccines (1 of 3 - 3-dose series) Hepatitis B Vaccines (1 of 3 - 3-dose series) [facility] Start: 1966 HIV screening HIV Screening [facility] Start: 1966 Lipid panel Lipid Panel [facility] Start: 1966 Screening for malign ant neoplasm of colon [facility] Start: 1966 Yearly Adult Physical Yearly Adult P hysical [facility] End: 09-12-2023 ECG COMPLETE ECG COMPLETE ECG Routine Gastroesophageal reflux disease without esophagitis Screening for cardiovascular condition 1 Occurrences starting 09/11/2022 until 09/12/2023 [facility] Work Phone: Comment on above: 1 Occurrences starti ng 09/11/2022 until 09/12/2023 End: 03-01-2023 EGD DIAGNOSTIC EGD DIAGNOSTIC Endoscopy Routine Heartburn Indigestion 1 Occurrences starting 03/01/2022 until 03/01/2023 [facility] Work Phone: Comment on above: 1 Occurrences starti ng 03/01/2022 until 03/01/2023 Patient Education \cps-[id number]\CPS_ PtEducation \[id number].pdf [facility] Work Phone: [facility] Immunizations Immunization Date Immunization Notes Care Provider Fa mei 09-30-2018 tetanus toxoid, redu dodie diphtheria toxoid, and acellular pertussis vaccine, adsorbed Donna Marina PA-C Work Phone: [place] Payers Date Payer Category Payer Self-pay 2024 Unknown [id number] 2022 Private Health Insurance [id number] 2022 Private Health Insurance [id number] 2022 Unknown [id number] 2021 Unknown [id number] 1966 Unknown [id number] 1966 Unknown [id number] 1966 Unknown [id number] [id number] [id number] 1966 Unknown [id number] [id number] [id number] 1966 Unknown [id number] [id number] [id number] 1966 Unknown [id number] 2.16.8 [id number] 1966 Unknown [id number] Unknown [id number] [id number] Social History Date Type Detail Facility Start: 05-16-2019 End: 05-16-2019 Assertion Unknown if ever smoked [facility] Work Phone: Start: 03-01-2022 End: 05-03-2024 Tobacco smoking status NDIS Occasional tobacco smoker [place] History of tobacco use Cigarette Smoker [place] Start: 03-01-2022 End: 05-03-2024 Tobacco use and exposure User of smokeless tobacco [place] History of tobacco use Chews Tobacco [place] Start: 03-01-2022 End: 09-11-2022 Alcohol intake Current non-drinker of alcohol (finding) [place] Start: 1965 Sex Assigned At Not on file [facility] Start: 03-01-2022 End: 09-19-2023 History of Social function [place] Start: 03-01-2022 End: 09-19-2023 Tobacco use panel [place] Start: 01-07-2012 Adult Depression Screening Assessment 0 [place] Start: 11-20-2022 Tobacco smoking status NHIS Never smoked tobacco [facility] Work Phone: History of tobacco use Snuff User [facility] Work Phone: Start: 11-20-2022 End: 01-24-2024 Alcohol intake Lifetime non-drinker (finding) [facility] Work Phone: Start: 03-17-2023 End: 01-24-2024 Exposure to SARS-CoV-2 (event) Not sure [facility] Start: 09-12-2024 End: 10-03-2024 Alcoholic beverage intake Ex-drinker (finding) [place] NEGATED: Highlighted rowStart: 05-16-2019 End: 05-16-2019 Tobacco use and exposure Tobacco use and exposure [facility] Work Phone: Clinical Notes 03-01-2022 to 10-14-2024 Bhupinder Cavanaugh APRN.ACADEMY EDUCATION DIRECTOR - 10/03/2024 4:55 PM EDTPatiKimberly Fisher APRN.ACADEMY EDUCATION DIRECTOR - 09/12/2024 3:57 PM KEIRA Loo - 01/24/2024 10:05 AM ESTPatient Instructions Note Date & Type Note Facility 10-14-2024 Note HNO ID: [id number] Author: JILLIAN FERRELL RT(R) Service: ? Author Type: Technologist Type: Progress Notes Filed: 10/14/2024 12:30 Note Text: Radiology Service Progress Note PATIENT NAME: Elpidio Cornelius DATE OF SERVICE: October 14, 2024 TIME: 12:30 PM PATIENT IDENTITY VERIFICATION COMPLETED USING TWO (2) IDENTIFIERS: Name and Date of confirmed by patient verbally. FALL SCREENING: Has the patient had 2 falls in the last year or 1 fall with injury or currently using an Ambulatory Assistive Device (Walker, Cane, Wheelchair, Crutches, etc.)? Emergency Room Patient: Screened in ED PATIENT GENDER DATA: Assigned male at PATIENT RELEVANT IMPLANT DATA REVIEWED: Yes PATIENT PRESENTS WITH AN IMPLANTABLE OR ATTACHED HIGHWAY ADMINISTRATIVE ENGINEER: No RADIOLOGY DEPARTMENT: Ultrasound PERIPHERAL IV DATA: Not applicable SIGNED BY: Jillian Ferrell RDMS, RVT October 14, 2024 12:30 PM [facility] 10-03-2024 Note HNO ID: [id number] Author: BHUPINDER CAVANAUGH APRN.ACADEMY EDUCATION DIRECTOR Service: ? Author Type: Nurse Practitioner Type: Progress Notes Filed: 10/03/2024 17:09 Note Text: Subjective The patient consented to the use of ambient AI software for draft documentation of the visit consistent with [place]?s Notice of Privacy Practices. HPI Elpidio Cornelius is a 59-year-old male presenting for follow-up after an ED visit for right flank pain. Elpidio was evaluated in the ED on 09/18 for right flank pain and nausea. A CT scan of the abdomen and pelvis revealed a 3 mm non-obstructing stone in the inferior pole of the right kidney, with no ureteral stones and a normal left kidney. Laboratory results showed a normal CBC, a BMP with mildly elevated glucose at 115 mg/dL, and a urinalysis with trace hematuria. He reports a history of a similar episode approximately 10 years ago and passed a kidney stone prior to the ED visit. No medications were prescribed, and he was advised to return if pain recurred. Currently, he reports significant improvement, with no pain, nausea, or abdominal discomfort, though he notes a gurgly sensation in his abdomen. He describes his overall health as good. He has a history of acid reflux, for which he occasionally takes omeprazole and uses vinegar to alleviate symptoms. He also reports ongoing vertigo, for which he was evaluated earlier this month and prescribed meclizine. However, he finds the medication causes excessive drowsiness and has discontinued its use. He is under the care of [facility], where his hearing was found to be normal, and an MRI of the brain has been ordered. Due to dizziness, he has been unable to drive. He has a history of using Viagra, but infrequently, due to side effects of nasal congestion. He reports high fluid intake, including water throughout the day and lemonade or orange juice with dinner, and consumes one cup of coffee in the morning. I reviewed past medical, surgical, social, and family histories today and updated chart. Allergies, chronic medications, and supplements were also reviewed. PAST MEDICAL HISTORY Diagnosis Date GERD (gastroesophageal reflux disease) NEGATIVE MEDICAL HISTORY PAST SURGICAL HISTORY Procedure Laterality Date COLONOSCOPY FLX DX W/COLLJ SPEC WHEN PFRMD 12/24/2018 Colonoscopy ELBOW RIGHT Right has had ozone injections on right elbow 10/22/16 and 10/08/16 TONSILLECTOMY HX ALLERGIES Patient has no known allergies. MEDICATIONS omeprazole (PRILOSEC) 20 mg capsule Take 1 capsule by mouth once daily. FAMILY HISTORY Adopted: Yes Problem Relation Age of Onset No Known Problems Mother No Known Problems Father No Known Problems Sister No Known Problems Brother No Known Problems Maternal Grandmother No Known Problems Maternal Grandfather No Known Problems Paternal Grandmother No Known Problems Paternal Grandfather other (unknown) Other pt adopted other (ms) Daughter 32 Drug abuse Daughter SOCIAL HISTORY[1] Review of Systems Gastrointestinal: (+) abdominal gurgling, (-) abdominal pain, (-) nausea Genitourinary: (-) right flank pain Neurological: (+) dizziness Objective BP 108/64 Pulse 75 Temp 98.4 Resp 16 Ht 5' 7 (1.70m) Wt 136 lb (61.7kg) SpO2 96% BMI 21.30 kg/(m2). Physical Exam Constitutional: General: He is not in acute distress. Appearance: Normal appearance. HENT: Head: Normocephalic and atraumatic. Mouth/Throat: Lips: [place]. Eyes: General: Lids are normal. Extraocular Movements: Extraocular movements intact. Conjunctiva/sclera: Conjunctivae normal. Pupils: Pupils are equal. Cardiovascular: Rate and Rhythm: Normal rate and regular rhythm. Heart sounds: Normal heart sounds. No murmur heard. Pulmonary: Effort: Pulmonary effort is normal. No respiratory distress. Breath sounds: Normal breath sounds. Abdominal: General: Abdomen is flat. Bowel sounds are normal. Palpations: Abdomen is soft. Tenderness: There is no abdominal tenderness. There is no right CVA tenderness. Musculoskeletal: Cervical back: Normal range of motion. Right lower leg: No edema. Left lower leg: No edema. Skin: General: Skin is warm and dry. Findings: No rash. Neurological: General: No focal deficit present. Mental Status: He is alert and oriented to person, place, and time. Cranial Nerves: No cranial nerve deficit. Motor: Motor function is intact. Coordination: Coordination normal. Gait: Gait is intact. Psychiatric: Attention and Perception: Attention and perception normal. Mood and Affect: Mood and affect normal. Behavior: Behavior normal. Behavior is cooperative. Assessment/Plan: 1. Kidney stone (N20.0) CT abdomen/pelvis from September 18 revealed a 3 mm non-obstructing stone in the inferior pole of the right kidney; no ureteral stones and left kidney normal. CBC and BMP were normal except for mildly elevated glucose (1 (more content not included)... [facility] 10-03-2024 History of Presen t illness Narrative Subjective The patient consented to the use of ambient AI software for draft documentation of the visit consistent with [place] s Notice of Privacy Practices. HPI Elpidio Cornelius is a 59-year-old male presenting for follow-up after an ED visit for right flank pain. Elpidio was evaluated in the ED on 09/18 for right flank pain and nausea. A CT scan of the abdomen and pelvis revealed a 3 mm non-obstructing stone in the inferior pole of the right kidney, with no ureteral stones and a normal left kidney. Laboratory results showed a normal CBC, a BMP with mildly elevated glucose at 115 mg/dL, and a urinalysis with trace hematuria. He reports a history of a similar episode approximately 10 years ago and passed a kidney stone prior to the ED visit. No medications were prescribed, and he was advised to return if pain recurred. Currently, he reports significant improvement, with no pain, nausea, or abdominal discomfort, though he notes a gurgly sensation in his abdomen. He describes his overall health as good. He has a history of acid reflux, for which he occasionally takes omeprazole and uses vinegar to alleviate symptoms. He also reports ongoing vertigo, for which he was evaluated earlier this month and prescribed meclizine. However, he finds the medication causes excessive drowsiness and has discontinued its use. He is under the care of [facility], where his hearing was found to be normal, and an MRI of the brain has been ordered. Due to dizziness, he has been unable to drive. He has a history of using Viagra, but infrequently, due to side effects of nasal congestion. He reports high fluid intake, including water throughout the day and lemonade or orange juice with dinner, and consumes one cup of coffee in the morning. I reviewed past medical, surgical, social, and family histories today and updated chart. Allergies, chronic medications, and supplements were also reviewed. PAST MEDICAL HISTORY Diagnosis Date GERD (gastroesophageal reflux disease) NEGATIVE MEDICAL HISTORY PAST SURGICAL HISTORY Procedure Laterality Date COLONOSCOPY FLX DX W/COLLJ SPEC WHEN PFRMD 12/24/2018 Colonoscopy ELBOW RIGHT Right has had ozone injections on right elbow 9/17/17 and 10/08/16 TONSILLECTOMY HX ALLERGIES Patient has no known allergies. MEDICATIONS omeprazole (PRILOSEC) 20 mg capsule Take 1 capsule by mouth once daily. FAMILY HISTORY Adopted: Yes Problem Relation Age of Onset No Known Problems Mother No Known Problems Father No Known Problems Sister No Known Problems Brother No Known Problems Maternal Grandmother No Known Problems Maternal Grandfather No Known Problems Paternal Grandmother No Known Problems Paternal Grandfather other (unknown) Other pt adopted other (ms) Daughter 32 Drug abuse Daughter SOCIAL HISTORY[1] Review of Systems Gastrointestinal: (+) abdominal gurgling, (-) abdominal pain, (-) nausea Genitourinary: (-) right flank pain Neurological: (+) dizziness Objective BP 108/64 Pulse 75 Temp 98.4 Resp 16 Ht 5' 7 (1.70m) Wt 136 lb (61.7kg) SpO2 96% BMI 21.30 kg/(m^2). Physical Exam Constitutional: General: He is not in acute distress. Appearance: Normal appearance. HENT: Head: Normocephalic and atraumatic. Mouth/Throat: Lips: [place]. Eyes: General: Lids are normal. Extraocular Movements: Extraocular movements intact. Conjunctiva/sclera: Conjunctivae normal. Pupils: Pupils are equal. Cardiovascular: Rate and Rhythm: Normal rate and regular rhythm. Heart sounds: Normal heart sounds. No murmur heard. Pulmonary: Effort: Pulmonary effort is normal. No respiratory distress. Breath sounds: Normal breath sounds. Abdominal: General: Abdomen is flat. Bowel sounds are normal. Palpations: Abdomen is soft. Tenderness: There is no abdominal tenderness. There is no right CVA tenderness. Musculoskeletal: Cervical back: Normal range of motion. Right lower leg: No edema. Left lower leg: No edema. Skin: General: Skin is warm and dry. Findings: No rash. Neurological: General: No focal deficit present. Mental Status: He is alert and oriented to person, place, and time. Cranial Nerves: No cranial nerve deficit. Motor: Motor function is intact. Coordination: Coordination normal. Gait: Gait is intact. Psychiatric: Attention and Perception: Attention and perception normal. Mood and Affect: Mood and affect normal. Behavior: Behavior normal. Behavior is cooperative. Assessment/Plan: 1. Kidney stone (N20.0) CT abdomen/pelvis from September 18 revealed a 3 mm non-obstructing stone in the inferior pole of the right kidney; no ureteral stones and left kidney normal. CBC and BMP were normal except for mildly elevated glucose (115 mg/dL). Urinalysis showed trace hematuria. Patient reports prior similar episode 10 years ago and passed a stone prior to ED visit. Currently asymptomatic with no pain or nausea. - Follow-up in 6 months for well-adult exam; return sooner if flank pain recurs. Bhupinder Cavanaugh APRN.BEN This patient note was created using speech recognition/dictation software to enhance efficiency and accuracy in clinical documentation. The content has been reviewed and edited as necessary to ensure completeness and correctness. While every effort has been made to ensure accuracy, occasional typographical errors may be present. [1] Social History Tobacco Use Smoking status: Some Days Types: Cigarettes Smokeless tobacco: Current Types: Snuff Vaping Use Vaping status: Never Used Substance Use Topics Alcohol use: Not Currently Drug use: Yes Types: Marijuana Comment: weekends documented in this encounter [place] 09-12-2024 Instructions Kimberly Padilla APRN.CNP - 09/12/2024 4:20 PM EDT [facility] [address] [place] [address] documented in this encounter [place] 09-12-2024 Note HNO ID: [id number] Author: KIMBERLY PADILLA APRN.CNP Service: ? Author Type: Nurse Practitioner Type: Progress Notes Filed: 09/14/2024 20:48 Note Text: CHIEF COMPLAINT: Elpidio Cornelius is a 59-year-old male presenting for evaluation of recurrent vertigo and tinnitus. I reviewed past medical, surgical, social, and family histories today and updated chart. Allergies, chronic medications, and supplements were also reviewed. Recording using [employer] software for draft documentation of the visit was discussed with the patient/authorized community engagement representative; all questions welcomed and answered. Patient/authorized community engagement representative agreed to proceed Vertigo: - Recurrent episodes of vertigo, x2 months. - Sensation of falling over when turning to the left while driving. - Episodes of dizziness when standing up or turning quickly. 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 - Elpidio denies any history of ear infections. - No pain when opening and closing the jaw. - Elpidio denies known trauma. Tinnitus: - Constant tinnitus in the right ear, described as hearing a heartbeat or whoosh sound. - Occasionally experiences ringing in the ears. - Tinnitus is more noticeable in quiet environments; uses a fan at night to drown out the sound. - No improvement with sqxv-evk-kwqfmsw treatments. - Elpidio denies use of meclizine or Antivert. - Wears hearing protection in loud environments and when riding a motorcycle. - No history of ear infections. - States he saw ENT previously and they told him his hearing was normal and gave no other suggestions Past Medical History: No date: GERD (gastroesophageal reflux disease) No date: NEGATIVE MEDICAL HISTORY PAST SURGICAL HISTORY Procedure Laterality Date COLONOSCOPY FLX DX W/COLLJ SPEC WHEN PFRMD 12/24/2018 Colonoscopy ELBOW RIGHT Right has had ozone injections on right elbow 10/22/16 and 10/08/16 TONSILLECTOMY HX Social History Tobacco Use Smoking status: Some Days Types: Cigarettes Smokeless tobacco: Current Types: Snuff Vaping Use Vaping status: Never Used Substance Use Topics Alcohol use: Not Currently Drug use: Yes Types: Marijuana Comment: weekends No Known Allergies Family History Adopted: Yes Problem Relation Age of Onset No Known Problems Mother No Known Problems Father No Known Problems Sister No Known Problems Brother No Known Problems Maternal Grandmother No Known Problems Maternal Grandfather No Known Problems Paternal Grandmother No Known Problems Paternal Grandfather other (unknown) Other pt adopted other (ms) Daughter 32 Drug abuse Daughter Current Outpatient Medications Medication Sig Dispense Refill omeprazole (PRILOSEC) 20 mg capsule Take 1 capsule by mouth once daily. 90 capsule 1 sildenafil (VIAGRA) 100 mg tablet Take 1 tablet by mouth as needed. 8 tablet 2 meclizine (ANTIVERT) 12.5 mg tab Take 1 tablet by mouth every 6 hours as needed (for dizziness). 30 tablet 0 No current facility-administered medications for this visit. Review of Systems Ears/Nose/Mouth/Throat: (+) right pulsatile tinnitus, (-) jaw pain Neurological: (+) dizziness, (+) vertigo, (+) imbalance sensation BP 116/62 Pulse 71 Temp (Src) 98.1 (Oral) Resp 18 Ht 5' 7 (1.70m) Wt 135 lb (61.2kg) SpO2 96% BMI 21.14 kg/(m2). Physical Exam GENERAL: NAD, alert and oriented SKIN: Unremarkable, no rash or skin lesions. HEAD: Normocephalic EYES: PERRLA, EOMI, conjunctiva clear EARS: External ears normal, canals clear, TM's normal. NOSE/SINUSES: Nares normal. Septum midline. OROPHARYNX: Lips, mucosa, and tongue normal, good dentition. No oral lesions noted. NECK: Supple, no lymphadenopathy, normal thyroid, no carotid bruits. LUNGS: Clear to auscultation bilaterally, no wheezes/rhonchi/rales. HEART: Regular rate and rhythm, no murmurs. NEURO: Awake, alert and oriented x3, cranial nerves II-XII grossly intact Labs Imaging Tests - Audiometric evaluation: Normal hearing (no date provided). ASSESSMENT/PLAN: 1. Vertigo (R42) 2. Tinnitus of right ear (H93.11) - Symptoms consistent with BPPV. - Start Antivert (meclizine) as needed for vertigo episodes; advised patient to take first dose at home to assess for drowsiness. - Refer to vestibular therapy for maneuvers to reposition otoliths. - Refer to ENT in [place] for further evaluation and second opinion. - Provided education on BPPV, including explanation of inner ear crystals and their role in balance. 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 3. Occupational exposure to noise (Z57.0) - Advised continued use of hearing protection in noisy environments. New medication(s) prescribed today: Yes: Meclizine. Discussed new medication dosage, usage, goals of therapy, and side effects. (more content not included)... [facility] 09-12-2024 History of Presen t illness Narrative CHIEF COMPLAINT: Elpidio Cornelius is a 59-year-old male presenting for evaluation of recurrent vertigo and tinnitus. I reviewed past medical, surgical, social, and family histories today and updated chart. Allergies, chronic medications, and supplements were also reviewed. Recording using [employer] software for draft documentation of the visit was discussed with the patient/authorized community engagement representative; all questions welcomed and answered. Patient/authorized community engagement representative agreed to proceed Vertigo: - Recurrent episodes of vertigo, x2 months. - Sensation of falling over when turning to the left while driving. - Episodes of dizziness when standing up or turning quickly. 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 - Elpidio denies any history of ear infections. - No pain when opening and closing the jaw. - Elpidio denies known trauma. Tinnitus: - Constant tinnitus in the right ear, described as hearing a heartbeat or whoosh sound. - Occasionally experiences ringing in the ears. - Tinnitus is more noticeable in quiet environments; uses a fan at night to drown out the sound. - No improvement with tmyr-mtu-cqsmdwb treatments. - Elpidio denies use of meclizine or Antivert. - Wears hearing protection in loud environments and when riding a motorcycle. - No history of ear infections. - States he saw ENT previously and they told him his hearing was normal and gave no other suggestions Past Medical History: No date: GERD (gastroesophageal reflux disease) No date: NEGATIVE MEDICAL HISTORY PAST SURGICAL HISTORY Procedure Laterality Date COLONOSCOPY FLX DX W/COLLJ SPEC WHEN PFRMD 12/24/2018 Colonoscopy ELBOW RIGHT Right has had ozone injections on right elbow 10/22/16 and 10/08/16 TONSILLECTOMY HX Social History Tobacco Use Smoking status: Some Days Types: Cigarettes Smokeless tobacco: Current Types: Snuff Vaping Use Vaping status: Never Used Substance Use Topics Alcohol use: Not Currently Drug use: Yes Types: Marijuana Comment: weekends No Known Allergies Family History Adopted: Yes Problem Relation Age of Onset No Known Problems Mother No Known Problems Father No Known Problems Sister No Known Problems Brother No Known Problems Maternal Grandmother No Known Problems Maternal Grandfather No Known Problems Paternal Grandmother No Known Problems Paternal Grandfather other (unknown) Other pt adopted other (ms) Daughter 32 Drug abuse Daughter Current Outpatient Medications Medication Sig Dispense Refill omeprazole (PRILOSEC) 20 mg capsule Take 1 capsule by mouth once daily. 90 capsule 1 sildenafil (VIAGRA) 100 mg tablet Take 1 tablet by mouth as needed. 8 tablet 2 meclizine (ANTIVERT) 12.5 mg tab Take 1 tablet by mouth every 6 hours as needed (for dizziness). 30 tablet 0 No current facility-administered medications for this visit. Review of Systems Ears/Nose/Mouth/Throat: (+) right pulsatile tinnitus, (-) jaw pain Neurological: (+) dizziness, (+) vertigo, (+) imbalance sensation BP 116/62 Pulse 71 Temp (Src) 98.1 (Oral) Resp 18 Ht 5' 7 (1.70m) Wt 135 lb (61.2kg) SpO2 96% BMI 21.14 kg/(m^2). Physical Exam GENERAL: NAD, alert and oriented SKIN: Unremarkable, no rash or skin lesions. HEAD: Normocephalic EYES: PERRLA, EOMI, conjunctiva clear EARS: External ears normal, canals clear, TM's normal. NOSE/SINUSES: Nares normal. Septum midline. OROPHARYNX: Lips, mucosa, and tongue normal, good dentition. No oral lesions noted. NECK: Supple, no lymphadenopathy, normal thyroid, no carotid bruits. LUNGS: Clear to auscultation bilaterally, no wheezes/rhonchi/rales. HEART: Regular rate and rhythm, no murmurs. NEURO: Awake, alert and oriented x3, cranial nerves II-XII grossly intact Labs Imaging Tests - Audiometric evaluation: Normal hearing (no date provided). ASSESSMENT/PLAN: 1. Vertigo (R42) 2. Tinnitus of right ear (H93.11) - Symptoms consistent with BPPV. - Start Antivert (meclizine) as needed for vertigo episodes; advised patient to take first dose at home to assess for drowsiness. - Refer to vestibular therapy for maneuvers to reposition otoliths. - Refer to ENT in [place] for further evaluation and second opinion. - Provided education on BPPV, including explanation of inner ear crystals and their role in balance. 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 3. Occupational exposure to noise (Z57.0) - Advised continued use of hearing protection in noisy environments. New medication(s) prescribed today: Yes: Meclizine. Discussed new medication dosage, usage, goals of therapy, and side effects. Patient has been apprised of any potential drug interactions to be aware of. Patient expresses understanding. Copy of written care plan, clinical summary, treatment plan, new medications, goals, and self management requirements were given to patient. Kimberly Padilla APRN.CNP documented in this encounter [place] 01-24-2024 History of Presen t illness Narrative [facility] NOTE: Name: Elpidio Cornelius Jr., 58 y.o. CSN:[id number] PCP: KEIRA Mtz ALL: No Known Allergies History: Chief Complaint: URI (Sore throat, runny nose, cough x 2 days) Encounter Date: 01/24/2024 HPI: The history was obtained from the patient. Elpidio is a 58 y.o. male, who presents with a chief complaint of URI (Sore throat, runny nose, cough x 2 days) Sinus pressure and pain, nasal congestion with yellow mucus, bilateral ear pain/fullness, productive cough with yellow sputum, mild sore throat, fever, chills, body aches, and fatigue. Denies shortness of breath/wheezing. symptoms began Sunday, reports symptoms have progressively worsened since onset. Denies any abdominal pain, chest pain, rashes, urinary symptoms, vomiting, and diarrhea. Denies any lightheadedness or dizziness; no changes in mental status. No swelling in legs. Appetite is decreased; is able to eat and drink fluids without difficulty. Has not utilized vhxi-eoh-swfintp medications or home remedies for symptom management. No known ill contacts. PMHx: History reviewed. No pertinent past medical history. Current Outpatient Medications Medication Sig Dispense Refill albuterol 90 mcg/actuation inhaler Inhale 2 puffs every 6 hours if needed for wheezing. 18 g 0 iqconjfumfeeqyv-iaxsrltta-JG 2-30-10 mg/5 mL syrup Take 5 mL by mouth 4 times a day as needed for congestion or cough for up to 10 days. 120 mL 0 cetirizine (ZyrTEC) 10 mg tablet Take 1 tablet (10 mg) by mouth once daily. 30 tablet 0 fluticasone (Flonase) 50 mcg/actuation nasal spray Administer 1 spray into each nostril once daily. Shake gently. Before first use, prime pump. After use, clean tip and replace cap. 16 g 0 gupewhzwfxggned-HH-qcxfoggjjgh (Capmist DM) 60-15-400 mg tablet Take 1 tablet by mouth every 6 hours if needed (sinus congestion) for up to 14 days. 84 tablet 0 No current facility-administered medications for this visit. PMSx: History reviewed. No pertinent surgical history. Fam Hx: No family history on file. SOC. Hx: Social History Socioeconomic History Marital status: Spouse name: Not on file Number of children: Not on file Years of education: Not on file Highest education level: Not on file Occupational History Not on file Tobacco Use Smoking status: Never Smokeless tobacco: Current Types: Snuff Substance and Sexual Activity Alcohol use: Never Drug use: Never Sexual activity: Not on file Other Topics Concern Not on file Social History Narrative Not on file Social Drivers of Health Financial Resource Strain: Not on file Food Insecurity: Not on file Transportation Needs: Not on file Physical Activity: Not on file Stress: Not on file Social Connections: Not on file Intimate Partner Violence: Not on file Housing Stability: Not on file Vitals: 01/24/24 1019 BP: 128/83 Pulse: 79 Resp: 16 Temp: 36.4 C (97.6 F) SpO2: 96% 65.8 kg (145 lb) Physical Exam Vitals and nursing note reviewed. Constitutional: General: He is not in acute distress. Appearance: Normal appearance. He is not ill-appearing. HENT: Head: Normocephalic and atraumatic. Right Ear: Hearing, ear canal and external ear normal. A middle ear effusion is present. Tympanic membrane is erythematous. Tympanic membrane is not scarred, retracted or bulging. Tympanic membrane has normal mobility. Left Ear: Hearing, ear canal and external ear normal. A middle ear effusion is present. Tympanic membrane is erythematous. Tympanic membrane is not scarred, retracted or bulging. Tympanic membrane has normal mobility. Nose: Congestion and rhinorrhea present. Rhinorrhea is purulent. Right Sinus: Maxillary sinus tenderness and frontal sinus tenderness present. Left Sinus: Maxillary sinus tenderness and frontal sinus tenderness present. Mouth/Throat: Lips: [place]. Mouth: Mucous membranes are moist. Pharynx: Uvula midline. Posterior oropharyngeal erythema present. No pharyngeal swelling or oropharyngeal exudate. Tonsils: No tonsillar exudate. Cardiovascular: Rate and Rhythm: Normal rate and regular rhythm. Heart sounds: Normal heart sounds. Pulmonary: Effort: Pulmonary effort is normal. Breath sounds: Normal breath sounds. Abdominal: General: Bowel sounds are normal. Skin: General: Skin is warm and dry. Capillary Refill: Capillary refill takes less than 2 seconds. Neurological: Mental Status: He is alert and oriented to person, place, and time. LABORATORY @ RADIOLOGICAL IMAGING (if done): Clines viral testing I did personally review Elpidio's past medical history, surgical history, social history, as well as family history (when relevant). In this case, I also oversaw the his drug management by reviewing his medication list, allergy list, as well as the medications that I prescribed during the UC course and/or recommended as an out-patient (including possible OTC medications such as acetaminophen, NSAIDs , etc). After reviewing the items above, I did look at previous medical documentation, such as recent hospitalizations, office visits, and/or recent consultations with PCP/specialist. SDOH: Another factor that I considered in Elpidio's care was his Social Determinants of Health (SDOH). During this UC encounter, he did not have social determinants of health. Those SDOH influencing Elpidio's care are: none COURSE/MEDICAL DECISION MAKING: Elpidio is a 58 y.o., who presents with a working diagnosis of 1. Viral URI with cough Elpidio was seen today for uri. Diagnoses and all orders for this visit: Viral URI with cough (Primary) - gqfjnuxsdfpflwf-DL-kjylweqoymz (Capmist DM) 60-15-400 mg tablet; Take 1 tablet by mouth every 6 hours if needed (sinus congestion) for up to 14 days. - rgbvyvluxckksxh-psqtdycvo-QX 2-30-10 mg/5 mL syrup; Take 5 mL by mouth 4 times a day as needed for congestion or cough for up to 10 days. Patient requesting antibiotic therapy, viral versus bacterial infections discussed. Plan of care reviewed with patient. If symptoms change and/or worsen will follow-up with primary care provider, return to urgent care, or go to the nearest emergency department for further evaluation. Patient states understanding and is agreeable with plan of care. Peri Perkins APRN, ASHLEY Advanced Practice Provider [facility] Please note: While the patient may or may not have received printed discharge paperwork, all relevant medical findings, test results, and treatment details are accessible through the electronic medical record system. The patient is encouraged to review their chart via the patient portal for comprehensive information and follow-up instructions. documented in this encounter [facility] Work Phone: 05-21-2023 History of Presen t illness Narrative 57 y.o. male presents for evaluation of URI. Symptoms including cough, nasal and chest congestion, body aches, malaise, and headache have been present for several days and refractory to OTC meds. No fever, chills, nausea, vomiting, abdominal pain, CP, or SOB. No exacerbating factors. No known COVID 19/flu exposure. Vitals: 05/21/23 1304 BP: (!) 126/91 Pulse: 81 Resp: 14 Temp: 36.8 C (98.2 F) SpO2: 97% No Known Allergies Medication Documentation Review Audit Reviewed by KEIRA Boateng (Nurse Practitioner) on 05/21/23 at 1308 Medication Order Taking? Sig Documenting Provider Last Dose Status cetirizine (ZyrTEC) 10 mg tablet [id number] Yes Take 1 tablet (10 mg) by mouth once daily. KEIRA Boateng Taking Active fluticasone (Flonase) 50 mcg/actuation nasal spray [id number] Yes Administer 1 spray into each nostril once daily. Shake gently. Before first use, prime pump. After use, clean tip and replace cap. KEIRA Boateng Taking Active History reviewed. No pertinent past medical history. History reviewed. No pertinent surgical history. ROS See HPI Physical Exam Vitals and nursing note reviewed. Constitutional: General: He is not in acute distress. Appearance: Normal appearance. He is not ill-appearing or toxic-appearing. HENT: Head: Normocephalic and atraumatic. Right Ear: Tympanic membrane, ear canal and external ear normal. Left Ear: Tympanic membrane, ear canal and external ear normal. Nose: Congestion present. Mouth/Throat: Mouth: Mucous membranes are moist. Pharynx: Oropharynx is clear. Eyes: Extraocular Movements: Extraocular movements intact. Conjunctiva/sclera: Conjunctivae normal. Pupils: Pupils are equal, round, and reactive to light. Cardiovascular: Rate and Rhythm: Normal rate and regular rhythm. Pulses: Normal pulses. Heart sounds: Normal heart sounds. Pulmonary: Effort: Pulmonary effort is normal. Breath sounds: Rhonchi (clears with cough) present. Lymphadenopathy: Cervical: Cervical adenopathy present. Skin: General: Skin is warm. Capillary Refill: Capillary refill takes less than 2 seconds. Neurological: General: No focal deficit present. Mental Status: He is alert and oriented to person, place, and time. Psychiatric: Mood and Affect: Mood normal. Behavior: Behavior normal. Assessment/Plan/MDM Elpidio was seen today for uri. Diagnoses and all orders for this visit: Acute bronchitis, unspecified organism (Primary) - amoxicillin-pot clavulanate (Augmentin) 875-125 mg tablet; Take 1 tablet by mouth 2 times a day for 7 days. - albuterol 90 mcg/actuation inhaler; Inhale 2 puffs every 6 hours if needed for wheezing. Encouraged pt to continue otc cold remedies PRN, push by mouth fluids and rest. Patient's clinical presentation is otherwise unremarkable at this time. Patient is discharged with instructions to follow-up with primary care or seek emergency medical attention for worsening symptoms or any new concerns. I did personally review Elpidio's past medical history, surgical history, social history, as well as family history (when relevant). In this case, I also oversaw the his drug management by reviewing his medication list, allergy list, as well as the medications that I prescribed during the UC course and/or recommended as an out-patient (including possible OTC medications such as acetaminophen, NSAIDs , etc). After reviewing the items above, I did look at previous medical documentation, such as recent hospitalizations, office visits, and/or recent consultations with PCP/specialist. SDOH: Another factor that I considered in Elpidio's care was his Social Determinants of Health (SDOH). During this UC encounter, he did not have social determinants of health. Those SDOH influencing Elpidio's care are: none Jovan Jacobson CNP [facility] [phone] documented in this encounter [facility] Work Phone: 03-27-2023 History of Presen t illness Narrative 57 y.o. male patient presents for evaluation of sinus pressure. Patient reports 1 week of progressively worsening maxillary sinus pain, nasal congestion, and cough. No fever, sore throat, n/v/d, fatigue, body aches, chest pains, SOB or other constitutional signs and symptoms. Has been using albuterol inhaler with some relief. No otc meds for symptoms. Vitals: 03/27/23 1030 BP: 124/74 Pulse: 65 Resp: 18 Temp: 36.7 C (98 F) SpO2: 97% No Known Allergies Medication Documentation Review Audit Reviewed by Smitha Lanza MA (Trucker Hand) on 03/27/23 at 1029 Medication Order Taking? Sig Documenting Provider Last Dose Status cetirizine (ZyrTEC) 10 mg tablet [id number] No Take 1 tablet (10 mg) by mouth once daily. Patient not taking: Reported on 03/27/2023 KEIRA Boateng Not Taking Active fluticasone (Flonase) 50 mcg/actuation nasal spray [id number] Yes Administer 1 spray into each nostril once daily. Shake gently. Before first use, prime pump. After use, clean tip and replace cap. KEIRA Boateng Taking Active No past medical history on file. No past surgical history on file. ROS See HPI Physical Exam Vitals and nursing note reviewed. Constitutional: General: He is not in acute distress. Appearance: Normal appearance. He is not ill-appearing, toxic-appearing or diaphoretic. HENT: Head: Normocephalic and atraumatic. Right Ear: Tympanic membrane, ear canal and external ear normal. Left Ear: Tympanic membrane, ear canal and external ear normal. Nose: Congestion present. Mouth/Throat: Mouth: Mucous membranes are moist. Pharynx: Oropharynx is clear. Eyes: Extraocular Movements: Extraocular movements intact. Conjunctiva/sclera: Conjunctivae normal. Pupils: Pupils are equal, round, and reactive to light. Cardiovascular: Rate and Rhythm: Normal rate and regular rhythm. Pulmonary: Effort: Pulmonary effort is normal. Breath sounds: Normal breath sounds. Lymphadenopathy: Cervical: Cervical adenopathy present. Skin: General: Skin is warm. Capillary Refill: Capillary refill takes less than 2 seconds. Neurological: General: No focal deficit present. Mental Status: He is alert and oriented to person, place, and time. Psychiatric: Mood and Affect: Mood normal. Behavior: Behavior normal. Assessment/Plan/MDM Elpidio was seen today for cough. Diagnoses and all orders for this visit: Acute non-recurrent maxillary sinusitis (Primary) - amoxicillin-pot clavulanate (Augmentin) 875-125 mg tablet; Take 1 tablet by mouth 2 times a day for 7 days. Acute bronchitis, unspecified organism - predniSONE (Deltasone) 10 mg tablet; Take 6 tablets (60 mg) by mouth once daily for 1 day, THEN 5 tablets (50 mg) once daily for 1 day, THEN 4 tablets (40 mg) once daily for 1 day, THEN 3 tablets (30 mg) once daily for 1 day, THEN 2 tablets (20 mg) once daily for 1 day, THEN 1 tablet (10 mg) once daily for 1 day. Encouraged pt to continue otc cold remedies PRN, push by mouth fluids and rest. Patient's clinical presentation is otherwise unremarkable at this time. Patient is discharged with instructions to follow-up with primary care or seek emergency medical attention for worsening symptoms or any new concerns. Jovan Jacobson CNP [facility] [phone] documented in this encounter [facility] Work Phone: 09-11-2022 Instructions Suhail Nix APRN.CNP - 09/11/2022 9:39 AM EDT ASSESSMENT/PLAN: 1. Gastroesophageal reflux disease without esophagitis - ICD9: 530.81, ICD10: K21.9 (primary diagnosis) - Discussed lifestyle modifications including losing weight, limiting caffeine, no meals three hours before sleep, and head of bed elevation - Check CBC, CMP - Begin treatment with Prilosec 20 mg QD 2. Screening for deficiency anemia - ICD9: V78.1, ICD10: Z13.0 - CBC 3. Encounter for screening for diabetes mellitus - ICD9: V77.1, ICD10: Z13.1 - COMP METABOLIC PANEL 4. Screening for lipid disorders - ICD9: V77.91, ICD10: Z13.220 - LIPID PANEL BASIC 5. Screening for HIV (human immunodeficiency virus) - ICD9: V73.89, ICD10: Z11.4 - HIV 1 2 COMBO(AG/AB),WITH REFLEX TO DIFFERENTIATION 6. Encounter for hepatitis C screening test for low risk patient - ICD9: V73.89, ICD10: Z11.59 - HEPATITIS C ANTIBODY IA WITH CONFIRMATION 7. Screening for malignant neoplasm of prostate - ICD9: V76.44, ICD10: Z12.5 - PSA/PROSTSPECAG SCRN 8. Screening for thyroid disorder - ICD9: V77.0, ICD10: Z13.29 - TSH BLD Suhail Nix APRN.BEN Heartburn is a burning sensation in the center of your chest that often occurs after you eat, bend over, exercise, and sometimes at night when you are lying down. Approximately one in 10 adults has heartburn at least once a week and one in three monthly. Some women experience heartburn almost daily as a result of increased pressure on the abdomen and hormonal changes. Despite its name, heartburn has nothing to do with your heart. Heartburn symptoms indicate a condition called gastroesophageal reflux disease, or GERD. This fact sheet offers some tips on how to relieve heartburn caused by this condition. What is GERD? When you swallow, food passes down your throat and through your esophagus to your stomach. A muscle called the lower esophageal sphincter controls the opening between the esophagus and the stomach. The muscle remains tightly closed except when you swallow food. When this muscle fails to close, the acid-containing contents of the stomach can travel back up into the esophagus. This backward movement is called reflux. When stomach acid enters the lower part of the esophagus, it can produce a burning sensation, commonly referred to as heartburn. Several factors might explain why this reflux action occurs and might offer some clues for relief. The most important are: The position of your body after eating (An upright posture helps prevent reflux.) The size of the meal (Smaller meals reduce reflux.) The nature of foods you consume (Certain substances that irritate the esophagus or weaken the sphincter can cause reflux.) How is GERD treated? To treat GERD, we recommend the following: Raise the head of your bed by six inches to allow gravity to help keep the stomach's contents in the stomach. (Do not use piles of pillows because this puts your body into a bent position that actually aggravates the condition by increasing pressure on the abdomen.) Eat meals at least three to four hours before lying down, and avoid bedtime snacks. Eat moderate portions of food and smaller meals. Maintain a healthy weight to eliminate unnecessary intra-abdominal pressure caused by extra pounds. Limit consumption of fatty foods, chocolate, peppermint, coffee, tea, jessy, and alcohol - all of which relax the lower esophageal sphincter. Also, avoid tomatoes and citrus fruits or juices, which contribute additional acid that can irritate the esophagus. Give up smoking, which also relaxes the lower esophageal sphincter. Wear loose belts and clothing. What if my GERD and heartburn persist? Many people will get relief from heartburn, and the pressure that goes with esophageal reflux, by following the tips above. Lxcj-vrf-qjbohkn liquid antacids can also help in treating occasional heartburn. If your symptoms persist, do not respond to treatment, or occur often, you need to see a doctor for testing and treatment. A visual examination of the esophagus, known as an endoscopy, might be necessary. Sometimes this test shows that the lining of the esophagus is severely inflamed and irritated by stomach acid. This condition, known as esophagitis, might lead to bleeding and difficulty in swallowing. Medical treatment for this condition might be necessary. This usually involves blocking acid production in the stomach. Samx-cci-ynxsdxb medicines, such as Tums , Rolaids , Maalox , Zantac , Tagamet , Prilosec, ,Pepcid , and Axid , can generally relieve esophageal reflux symptoms. Patients with more severe symptoms or those who have been using antacids for more than two weeks should contact their doctors, who can prescribe medicines to control or eliminate acid, such as H2-receptor antagonists and proton pump inhibitors. Only a few people need surgery to correct the disorder. References [employer]. Acid Reflux Accessed 08/30/2015. [employer]. Gastroesophageal Reflux Disease (GERD) Accessed 08/30/2015. National [place] of Diabetes and Digestive and Kidney Diseases. Gastroesophageal Reflux (GOGO) and Gastroesophageal Reflux Disease (GERD) Accessed 08/30/2015. Copyright 6779-8921 The [facility]. All rights reserved Heartburn is a burning sensation in the center of your chest that often occurs after you eat, bend over, exercise, and sometimes at night when you are lying down. Approximately one in 10 adults has heartburn at least once a week and one in three monthly. Some women experience heartburn almost daily as a result of increased pressure on the abdomen and hormonal changes. Despite its name, heartburn has nothing to do with your heart. Heartburn symptoms indicate a condition called gastroesophageal reflux disease, or GERD. This fact sheet offers some tips on how to relieve heartburn caused by this condition. What is GERD? When you swallow, food passes down your throat and through your esophagus to your stomach. A muscle called the lower esophageal sphincter controls the opening between the esophagus and the stomach. The muscle remains tightly closed except when you swallow food. When this muscle fails to close, the acid-containing contents of the stomach can travel back up into the esophagus. This backward movement is called reflux. When stomach acid enters the lower part of the esophagus, it can produce a burning sensation, commonly referred to as heartburn. Several factors might explain why this reflux action occurs and might offer some clues for relief. The most important are: The position of your body after eating (An upright posture helps prevent reflux.) The size of the meal (Smaller meals reduce reflux.) The nature of foods you consume (Certain substances that irritate the esophagus or weaken the sphincter can cause reflux.) How is GERD treated? To treat GERD, we recommend the following: Raise the head of your bed by six inches to allow gravity to help keep the stomach's contents in the stomach. (Do not use piles of pillows because this puts your body into a bent position that actually aggravates the condition by increasing pressure on the abdomen.) Eat meals at least three to four hours before lying down, and avoid bedtime snacks. Eat moderate portions of food and smaller meals. Maintain a healthy weight to eliminate unnecessary intra-abdominal pressure caused by extra pounds. Limit consumption of fatty foods, chocolate, peppermint, coffee, tea, jessy, and alcohol - all of which relax the lower esophageal sphincter. Also, avoid tomatoes and citrus fruits or juices, which contribute additional acid that can irritate the esophagus. Give up smoking, which also relaxes the lower esophageal sphincter. Wear loose belts and clothing. What if my GERD and heartburn persist? Many people will get relief from heartburn, and the pressure that goes with esophageal reflux, by following the tips above. Oiuj-hex-jzlhbwc liquid antacids can also help in treating occasional heartburn. If your symptoms persist, do not respond to treatment, or occur often, you need to see a doctor for testing and treatment. A visual examination of the esophagus, known as an endoscopy, might be necessary. Sometimes this test shows that the lining of the esophagus is severely inflamed and irritated by stomach acid. This condition, known as esophagitis, might lead to bleeding and difficulty in swallowing. Medical treatment for this condition might be necessary. This usually involves blocking acid production in the stomach. Epdx-afq-jksmkhj medicines, such as Tums , Rolaids , Maalox , Zantac , Tagamet , Prilosec, ,Pepcid , and Axid , can generally relieve esophageal reflux symptoms. Patients with more severe symptoms or those who have been using antacids for more than two weeks should contact their doctors, who can prescribe medicines to control or eliminate acid, such as H2-receptor antagonists and proton pump inhibitors. Only a few people need surgery to correct the disorder. References [employer]. Acid Reflux Accessed 08/30/2015. [employer]. Gastroesophageal Reflux Disease (GERD) Accessed 08/30/2015. National [place] of Diabetes and Digestive and Kidney Diseases. Gastroesophageal Reflux (GOGO) and Gastroesophageal Reflux Disease (GERD) Accessed 08/30/2015. Copyright 1731-4658 The [facility]. All rights reserved documented in this encounter [place] 09-11-2022 History of Presen t illness Narrative This note was created using [employer]uls[employer]. Subjective Elpidio Cornelius is a 57 year old male here today for concerns regarding his heartburn. This is chronic, he reports taking otc prilosec daily and would like a prescription for this. Pt reports he has been having acid reflux. States at night he will wake with acid reflux. States also during the day when he bends over he will have acid reflux. States this will occur 2-3x/wk. Reports some days he will have none. States some days he will wake up with burning in his chest. When he lays down it is coming up into his throat. States he also reports having bouts of diarrhea. States he feels it could be stress related. States his nephew was shot and killed. States he had to pay for his . Reports he is dealing with his parents estate. He also states his boss has alzheimers and it has been very stressful at work. He is taking OTC Prilosec 20 mg every 3 days. States as long as he takes it every 3 days he is fine but if he misses the 3rd day symptoms worsen. He continues to smoke 1/2 ppd. Denies alcohol use. He has never had EGD. He is up to date with colonoscopy [address] Love. ALLERGIES No Known Allergies Current Outpatient Medications Medication Sig Dispense Refill sildenafil (VIAGRA) 100 mg tablet Take 1 tablet by mouth as needed. (Patient taking differently: Take 60 mg by mouth as needed.) 8 tablet 2 No current facility-administered medications for this visit. ACTIVE PROBLEM LIST Golfer's Elbow Hyperopia Pain in Right Elbow Right Arm Weakness Tennis Elbow PAST MEDICAL HISTORY Diagnosis Date NEGATIVE MEDICAL HISTORY PAST SURGICAL HISTORY Procedure Laterality Date COLONOSCOPY FLX DX W/COLLJ SPEC WHEN PFRMD 12/24/2018 Colonoscopy ELBOW RIGHT Right has had ozone injections on right elbow 10/22/16 and 10/08/16 TONSILLECTOMY HX Social History Tobacco Use Smoking status: Some Days Types: Cigarettes Smokeless tobacco: Current Types: Chew Vaping Use Vaping Use: Never used Substance Use Topics Alcohol use: No Drug use: No Family History Problem Relation Age of Onset other (unknown) Other pt adopted Review of Systems Constitutional: Negative for activity change, appetite change, chills, diaphoresis, fatigue, fever and unexpected weight change. Respiratory: Negative for cough, chest tightness, shortness of breath and wheezing. Cardiovascular: Negative for chest pain, palpitations and leg swelling. Gastrointestinal: Positive for diarrhea and nausea. Negative for abdominal distention, abdominal pain, constipation and vomiting. Occasional nausea Reports 1-2x/wk he will wake with diarrhea. Endocrine: Negative for cold intolerance, heat intolerance, polydipsia and polyphagia. Genitourinary: Negative for difficulty urinating, dysuria, frequency and hematuria. Musculoskeletal: Positive for arthralgias. Reports generalized joint pains Neurological: Negative for dizziness and headaches. Hematological: Does not bruise/bleed easily. Objective BP 100/60 (BP Site: Right Arm, BP Position: Sitting, BP Cuff Size: Regular Adult) Pulse 69 Temp 36.8 C (98.2 F) (Oral) Resp 18 Ht 170.2 cm (5' 7) Wt 65.1 kg (143 lb 9.6 oz) SpO2 95% BMI 22.49 kg/m Physical Exam Vitals and nursing note reviewed. Constitutional: General: He is not in acute distress. Appearance: Normal appearance. He is not ill-appearing. HENT: Head: Normocephalic and atraumatic. Right Ear: Tympanic membrane, ear canal and external ear normal. Left Ear: Tympanic membrane, ear canal and external ear normal. Nose: Nose normal. Mouth/Throat: Mouth: Mucous membranes are moist. Cardiovascular: Rate and Rhythm: Normal rate and regular rhythm. Pulses: Normal pulses. Heart sounds: Normal heart sounds, S1 normal and S2 normal. No murmur heard. Pulmonary: Effort: Pulmonary effort is normal. No accessory muscle usage or respiratory distress. Breath sounds: Normal breath sounds. No decreased breath sounds, wheezing, rhonchi or rales. Abdominal: General: Abdomen is flat. Bowel sounds are normal. There is no distension. Palpations: Abdomen is soft. Tenderness: There is no abdominal tenderness. There is no right CVA tenderness, left CVA tenderness, guarding or rebound. Negative signs include Kumar's sign. Hernia: No hernia is present. Musculoskeletal: Right lower leg: No edema. Left lower leg: No edema. Skin: General: Skin is warm and dry. Neurological: Mental Status: He is alert and oriented to person, place, and time. Psychiatric: Attention and Perception: Attention and perception normal. Mood and Affect: Mood normal. Speech: Speech normal. Behavior: Behavior normal. Behavior is cooperative. Thought Content: Thought content normal. Cognition and Memory: Cognition and memory normal. Judgment: Judgment normal. ASSESSMENT/PLAN: 1. Gastroesophageal reflux disease without esophagitis - ICD9: 530.81, ICD10: K21.9 (primary diagnosis) - chronic, symptoms consistent with GERD but will also order ECG. Less likely cardiac related due to non exertional in nature. Pt is adopted so therefore we do not have family history of any heart disease. - will start Prilosec once daily. If persists or worsens will need referral for EGD. - Discussed lifestyle modifications including losing weight, limiting caffeine, no meals three hours before sleep, and head of bed elevation - Check CBC, CMP - Begin treatment with Prilosec 20 mg QD 2. Screening for deficiency anemia - ICD9: V78.1, ICD10: Z13.0 - CBC 3. Encounter for screening for diabetes mellitus - ICD9: V77.1, ICD10: Z13.1 - COMP METABOLIC PANEL 4. Screening for lipid disorders - ICD9: V77.91, ICD10: Z13.220 - LIPID PANEL BASIC 5. Screening for HIV (human immunodeficiency virus) - ICD9: V73.89, ICD10: Z11.4 - HIV 1 2 COMBO(AG/AB),WITH REFLEX TO DIFFERENTIATION 6. Encounter for hepatitis C screening test for low risk patient - ICD9: V73.89, ICD10: Z11.59 - HEPATITIS C ANTIBODY IA WITH CONFIRMATION 7. Screening for malignant neoplasm of prostate - ICD9: V76.44, ICD10: Z12.5 - PSA/PROSTSPECAG SCRN 8. Screening for thyroid disorder - ICD9: V77.0, ICD10: Z13.29 - TSH BLD Suhail Nix APRN.ACADEMY EDUCATION DIRECTOR documented in this encounter [place] 09-05-2022 Miscellaneous Notes Called pt hanny lange for him on Sep 11 Dona Garcia MA ----- Message from Cori Ramos sent at 09/05/2022 1:07 PM EDT ----- Regarding: FW: Medicine Boyd Diarrhea ----- Message ----- From: Laura Robbins Sent: 09/05/2022 12:46 PM EDT To: [facility] Triage Pool Subject: Medicine Boyd Diarrhea Subject Line Format: Medicine / [Provider Name] / [Issue] Patient has been identified by name and Date of (Y/N): y Patient: Elpidio Cornelius Date of : 1965 Provider for this encounter: Suhail Nix APRN.ACADEMY EDUCATION DIRECTOR Reason for the call/escalation: Patient is experiencing Heartburn,Hiccups and frequent diarrhea per 4cq requested a callback. Informed him that callback should be within 2 hours Was Patient Referred to [facility]/Seek Emergency Treatment (Y/N): n Did Patient Agree (Y/N): n Was An Attempt Made To Transfer The Patient To The Office (Y/N): n Were You Able To Reach Someone At The Office (Y/N): n If Yes - Patient Was Transferred To (Caregivers Name): n If No - Which [employer] Spring Assembler Supervisor Did You Speak With Regarding This Patient: n Was an appointment scheduled (Y/N): no Reason patient was requesting visit (RFV/signs and symptoms/diagnosis) : Heartburn/Hiccups/ frequent diarrhea Person calling if other than patient: self Return call to if other than patient: Elpidio Gómez contact number: [phone] Thank you, Laura Itzel September 05, 2022 12:43 PM documented in this encounter [place] 03-01-2022 Instructions Donna Marina PA-C - 03/01/2022 1:35 PM EST Recommend high protein, high fiber diet. Promotion of salivation through oral lozenges/chewing gum Drink plenty of water Avoid NSAIDs (such as Advil, Ibuprofen, Excedrin, Mobic), tobacco, alcohol, carbonated beverages, caffeine, chocolate, tomato based sauces, spicy/fatty foods, and peppermint Avoid eating less than 3 hours before bed. Elevate the head of the bed 6 inches, or invest in a wedge pillow. Laying on left side with head elevated may help alleviate reflux symptoms. documented in this encounter [place] 03-01-2022 History of Presen t illness Narrative CHIEF COMPLAINT: Patient presents with: Heartburn: Also having hiccups and loose stools. This consult was requested by No ref. provider found for an opinion regarding heartburn. My final recommendations will be communicated to the requesting health care provider by way of the shared medical record for internal providers or letter via the [employer] for external providers. HPI: Elpidio Cornelius is a 56 year old male who presents for Heartburn (Also having hiccups and loose stools. ). Patient tells me that he has been dealing with heartburn and indigestion intermittent for the last 6 months. Tells me that he is taking Prilosec about once a week. Getting bad reflux about once a week. Notes loose stools. Going about 2-3x a day. Did have a normal stool this morning. No bloody or black stools. Did have a normal colonoscopy in 2019. Chews 1/2 can daily plus smokes 0.5 ppd. No alcohol. Adopted. Record Review: [facility] / Outside records reviewed. PAST MEDICAL HISTORY Diagnosis Date NEGATIVE MEDICAL HISTORY PAST SURGICAL HISTORY Procedure Laterality Date COLONOSCOPY FLX DX W/COLLJ SPEC WHEN PFRMD 12/24/2018 Colonoscopy ELBOW RIGHT Right has had ozone injections on right elbow 10/22/16 and 10/08/16 TONSILLECTOMY HX Allergies: ALLERGIES No Known Allergies Medications: sildenafil (VIAGRA) 100 mg tablet Take 1 tablet by mouth as needed. (Patient taking differently: Take 60 mg by mouth as needed.) FAMILY HISTORY Problem Relation Age of Onset other (unknown) Other pt adopted Employer And Job Title: None on file Years Of Education Completed: Not specified Marital Status: Single Social History Tobacco Use Smoking status: Some Days Types: Cigarettes Smokeless tobacco: Current Types: Chew Vaping Use Vaping Use: Never used Substance Use Topics Alcohol use: No Drug use: No Review of Systems: Review of Systems Gastrointestinal: Positive for diarrhea. Heartburn All other systems reviewed and are negative. Are you taking any blood thinners? No Physical Examination: Pulse 70 Ht 5' 7 (1.70m) Wt 146 lb (66.2kg) BMI 22.86 kg/(m^2). Physical Exam Constitutional: Appearance: Normal appearance. He is normal weight. HENT: Head: Normocephalic and atraumatic. Eyes: General: No scleral icterus. Extraocular Movements: Extraocular movements intact. Conjunctiva/sclera: Conjunctivae normal. Pupils: Pupils are equal, round, and reactive to light. Cardiovascular: Rate and Rhythm: Normal rate and regular rhythm. Pulses: Normal pulses. Heart sounds: Normal heart sounds. Pulmonary: Effort: Pulmonary effort is normal. Breath sounds: Normal breath sounds. Abdominal: General: Abdomen is flat. Bowel sounds are normal. Palpations: Abdomen is soft. Tenderness: There is no abdominal tenderness. Musculoskeletal: General: Normal range of motion. Cervical back: Normal range of motion and neck supple. Skin: General: Skin is warm and dry. Coloration: Skin is not jaundiced. Neurological: General: No focal deficit present. Mental Status: He is alert and oriented to person, place, and time. Psychiatric: Mood and Affect: Mood normal. Behavior: Behavior normal. Thought Content: Thought content normal. Judgment: Judgment normal. Assessment/Plan (R12) Heartburn (primary encounter diagnosis) (K30) Indigestion (Z72.0) Tobacco abuse (R19.5) Loose stools 1. Heartburn -- Patient with worsening heartburn/indigestion for the last 6 months. Taking Omeprazole as needed. Does chew and smoke about 0.5 ppd. -- Plan for EGD r/o esophagitis, gastritis, PUD, Velazquez's Recommend high protein, high fiber diet. Promotion of salivation through oral lozenges/chewing gum Drink plenty of water Avoid NSAIDs (such as Advil, Ibuprofen, Excedrin, Mobic), tobacco, alcohol, carbonated beverages, caffeine, chocolate, tomato based sauces, spicy/fatty foods, and peppermint Avoid eating less than 3 hours before bed. Elevate the head of the bed 6 inches, or invest in a wedge pillow. Laying on left side with head elevated may help alleviate reflux symptoms. - EGD DIAGNOSTIC; Future 2. Indigestion -- Patient with worsening heartburn/indigestion for the last 6 months. Taking Omeprazole as needed. Does chew and smoke about 0.5 ppd. -- Plan for EGD r/o esophagitis, gastritis, PUD, Velazquez's - EGD DIAGNOSTIC; Future 3. Tobacco abuse -- Patient with worsening heartburn/indigestion for the last 6 months. Taking Omeprazole as needed. Does chew and smoke about 0.5 ppd. -- Plan for EGD r/o esophagitis, gastritis, PUD, Velazquez's 4. Loose stools -- Notes looser stools as well within the last 6 months. Colonoscopy in 2019 was normal. -- Recommend high fiber diet. Control acid production Follow up in office PRN. Recommended to please call office/go to ER if fever, chills, chest pain, SOB, diarrhea, nausea, emesis, worsening abdominal pain, dehydration occurs I spent 20 minutes in the visit, with more than 50% of the total ekoj-on-cuqt time of the visit in counseling / coordination of care. I have confirmed and edited as necessary, the PFSH and ROS obtained by others. Donna Marina PA-C March 01, 2022 1:35 PM documented in this encounter [place] Evaluation note Diagnosis Heartburn- Primary Indigestion Dyspepsia and other specified disorders of function of stomach Tobacco abuse Tobacco use disorder Loose stools Abnormal feces [facility] Diagnosis Gastroesophageal reflux disease without esophagitis- Primary Esophageal reflux Screening for deficiency anemia Screening for other and unspecified deficiency anemia Encounter for screening for diabetes mellitus Screening for diabetes mellitus Screening for lipid disorders Screening for HIV (human immunodeficiency virus) Special screening examination for other specified viral diseases Encounter for hepatitis C screening test for low risk patient Screening for malignant neoplasm of prostate Screening for thyroid disorder Screening for cardiovascular condition Screening for other and unspecified cardiovascular conditions [facility]* Diagnosis Acute non-recurrent maxillary sinusitis- Primary Acute bronchitis, unspecified organism documented in this encounter [facility] Work Phone: Evaluation note* Diagnosis Acute bronchitis, unspecified organism- Primary documented in this encounter [facility] Work Phone: Evaluation note* Diagnosis Viral URI with cough- Primary documented in this encounter [facility] Work Phone: Evaluation note* Diagnosis Vertigo- Primary Dizziness and giddiness Tinnitus of right ear Unspecified tinnitus Occupational exposure to noise Other effects of external causes [facility]* Diagnosis Kidney stone- Primary Calculus of kidney documented in this encounter [facility] for referral (narrative)* Outpatient Procedure (Routine) - Authorized Specialty Diagnoses / Procedures Referred By Primo t Referred To Contact [facility] Diagnoses Heartburn Indigestion Procedures EGD DIAGNOSTIC ESOPHAGOGASTRODUODENOS COPY TRANSORAL DIAGNOSTIC Donna Marina PA-C [address] [place] [address] [facility] [place] [address] [place] [address] Referral ID Status Reason Start Date Expiration Date Visits Requested Visits Authorized [id number] Authorized Auto-Generat ed Referral 03/01/2022 03/01/2023 1 1 [facility] [place] Outpatient Procedure (Routine) - Pending Review Specialty Diagnoses / Procedures Referred By Primo flores Referred To Contact [facility] Diagnoses Gastroesophageal reflux disease without esophagitis Screening for cardiovascular condition Procedures ECG COMPLETE ECG ROUTINE ECG W/LEAST 12 LDS W/I&R Suhail Nix APRN.ACADEMY EDUCATION DIRECTOR [address] [place] [address] [facility] [address] [place] [address] Referral ID Status Reason Start Date Expiration Date Visits Requested Visits Authorized [id number] Pending Review Auto-Generat ed Referral 09/11/2022 09/11/2023 1 1 [place] Summary Purpose Family History No Family History Records FoundNo Family History Records FoundThere may be information available, but it has not been provided by the sender.No Family History Records FoundNo Family History Records FoundNo Family History Records FoundNo Family History Records Found Advance Directives No Advanced Directives Records FoundNo Advanced Directives Records FoundThere may be information available, but it has not been provided by the sender.No Advanced Directives Records FoundNo Advanced Directives Records FoundNo Advanced Directives Records FoundNo Advanced Directives Records Found Procedure Findings Note HNO ID: [id number] Author: Ximena Love Service: ? Author Type: Physician Type: Brief Op Note Filed: 12/24/2018 3:28 PM Note Text: BRIEF OPERATIVE NOTE SURGERY DATE: 12/24/2018 Incision/Procedure Start Time: 15:10 Incision Close/Procedure End Time: 15:26 Surgeon(s)/Proceduralist(s) and Coverstitch Machine Operator(s): Ivan Procedures: colonoscopy Anesthesia: MAC Findings: hemorrhoidal disease Estimated Blood Loss: 0 ml Specimens: None Complications: None Preop Diagnosis: screening for colon cancer Postop Diagnosis: hemorrhoids SIGNATURE: Catherine Love MD PATIENT NAME: Elpidio Cornelius JR DATE: December 24, 2018 TIME: 3:27 PM PAGER/CONTACT #: Chief Complaint Chief Complaint Description Start Date right elbow pain Preliminary chief co mplaint data, not yet signed by the author as of Assessments There may be information available, but it has not been provided by the sender. Review of System There may be information available, but it has not been provided by the sender. History of Present Illness There may be information available, but it has not been provided by the sender. Additional Source Comments (unrecognized sect ion and content) No Status Records FoundNo Status Records FoundNo Status Records FoundNo Status Records FoundNo Status Records FoundNo Status Records Found INFORMATION SOURCE (unrecogn ized section and content) DATE CREATED AUTHOR 03/25/2018 [facility] DATE CREATED AUTHOR AUTHOR'S ORGANIZ ATION 03/11/2019 [facility] DATE CREATED AUTHOR AUTHOR'S ORGANIZ ATION 05/22/2022 [facility] DATE CREATED AUTHOR AUTHOR'S ORGANIZ ATION 01/27/2024 [facility] DATE CREATED AUTHOR AUTHOR'S ORGANIZ ATION 10/16/2024 [facility] DATE CREATED AUTHOR AUTHOR'S ORGANIZ ATION 10/23/2024 [facility] Reason for Visit (unrecogniz ed section and content) Reason For Visit Description Follow-up by complaint Preliminary reason f or visit data, not yet signed by the author as of right elbow pain Reason Comments Heartburn Also having hiccups and loose stools. Reason Comments Patient Question Reason Comments Cough Cough and sinus guerline estion X 1 week Reason Comments URI RUNNY NOSE, SORE THR OAT, CHEST CONGESTION, COUGH X 4 DAYS Reason Comments URI Sore throat, runny n ose, cough x 2 days Reason Comments Dizziness Duration: year and h viviana Description: states he has right ear pressure, ringing Reason Comments ER F/U [facility] ER 09/18 for jo ann mead stone. States he is no longer having any pain Source Comments (unrecognize d section and content) In the event this informatio n is protected by the Federal Confidentiality of Alcohol and Drug Abuse Patient Records regulations: The Federal rules restrict any use of the information to criminally investigate or prosecute any alcohol or drug abuse patient.[place] the event this information is protected by the Federal Confidentiality of Alcohol and Drug Abuse Patient Records regulations: The Federal rules restrict any use of the information to criminally investigate or prosecute any alcohol or drug abuse patient.[place] the event this information is protected by the Federal Confidentiality of Alcohol and Drug Abuse Patient Records regulations: The Federal rules restrict any use of the information to criminally investigate or prosecute any alcohol or drug abuse patient.[place] the event this information is protected by the Federal Confidentiality of Alcohol and Drug Abuse Patient Records regulations: The Federal rules restrict any use of the information to criminally investigate or prosecute any alcohol or drug abuse patient.[place] the event this information is protected by the Federal Confidentiality of Alcohol and Drug Abuse Patient Records regulations: The Federal rules restrict any use of the information to criminally investigate or prosecute any alcohol or drug abuse patient.[facility] Teams (unrecognized sec tion and content) Spring Assembler Supervisor Relationship Specialty Start Date End Date Suhail Nix, SALAD COUNTER ATTENDANT.ACADEMY EDUCATION DIRECTOR [address] [place] [address] PCP - General Internal Medicine 07/18/16 Spring Assembler Supervisor Relationship Specialty Start Date End Date Suhail Nix, SALAD COUNTER ATTENDANT.ACADEMY EDUCATION DIRECTOR [address] [place] [address] PCP - General Internal Medicine 07/18/16 Spring Assembler Supervisor Relationship Specialty Start Date End Date Suhail Nix, SALAD COUNTER ATTENDANT.ACADEMY EDUCATION DIRECTOR [address] [place] [address] PCP - General Internal Medicine 07/18/16 Spring Assembler Supervisor Relationship Specialty Start Date End Date Suhail Nix, SALAD COUNTER ATTENDANT-ACADEMY EDUCATION DIRECTOR [address] [place] [address] PCP - General 05/09/22 Spring Assembler Supervisor Relationship Specialty Start Date End Date Suhail Nix, SALAD COUNTER ATTENDANT-ACADEMY EDUCATION DIRECTOR [address] [place] [address] PCP - General 05/09/22 Spring Assembler Supervisor Relationship Specialty Start Date End Date Suhail Nix, SALAD COUNTER ATTENDANT.ACADEMY EDUCATION DIRECTOR [address] [place] [address] PCP - General Internal Medicine 07/18/16 Spring Assembler Supervisor Relationship Specialty Start Date End Date Suhail Nix APRN.[facility] [address] [place] [id number] PCP - General Internal Medicine 07/18/16 <item><item> Privacy Markings (unrecogniz ed section and content) Section Author: Shanti Blevins PROHIBITION ON REDISCLOSURE OF CONFIDENTIAL INFORMATION This notice accompanies a disclosure of information concerning a client made to you with the consent of such client. Section Author: Shanti Blevins PROHIBITION ON REDISCLOSURE OF CONFIDENTIAL INFORMATION This notice accompanies a disclosure of information concerning a client made to you with the consent of such client. FOR RECORDS PERTAINING TO PATIENTS WHO ARE OR HAVE BEEN ENROLLED IN A CHEMICAL DEPENDENCY/SUBSTANCEABUSE PROGRAM, SOME INFORMATION MAY BE OMITTED. This clinical summary was aggregated from multiple sources. Caution should be exercised in using it in the provision of clinical care. This summary normalizes information from multiple sources, and as a consequence, information in this document may materially change the coding, format and clinical context of patient data. In addition, data may be omitted in some cases. CLINICAL DECISIONS SHOULD BE BASED ON THE PRIMARY CLINICAL RECORDS. [employer] [facility]. provides no warranty or guarantee of the accuracy or completeness of information in this document.
--- NOTE | 2024-10-24 12:49 | MRI_ITS ---
PROCEDURE: BRAIN W/WO CONTRAST 10/24/2024 REASON FOR EXAM: DIZZINESS TECHNIQUE: Procedure Code: MRIBRWW Modality: MR Procedure: BRAIN W/WO CONTRAST Multiplanar and multisequence images were obtained. CONTRAST: Clariscan VOLUME: 12 mL COMPARISON: none FINDINGS: No intracerebral or extra-axial hematomas or enhancing masses. No hyperacute or acute infarctions could be depicted. Normal parenchymal signal of the cerebral hemispheres, cerebellum and brain stem. Normal appearance of the ventricular system. No midline shift. Normal MRI appearance of orbital structures, both globes, optic nerves, optic chiasm, optic tracts and optic radiations. Scanned paranasal sinuses are unremarkable. Normal & comparable sizes of the seventh and eighth cranial nerves on both sides. No obvious related vascular loops or masses. No cerebello-pontine angle masses detected. The examined mastoid air cells are clear. Normal appearance of the semicircular canals, vestibules and cochlea on both sides. MRI/Brain W/WO Contrast IMPRESSION: No acute infarcts, intracerebral or extra-axial hematomas or enhancing masses. Unremarkable appearance of the petrous bones. Reading Location: [place] [address]
== END | disposition home or self-care (01) ==
PROVIDERS: PCP Nurse Practitioner Adult Health; Referring Provider Otolaryngology; Visit Provider Otolaryngology
DX: R42 Dizziness and giddiness (principal)
CPT/HCPCS: 70030; 70553; A9575